=== PATIENT | female | born 1990 ===

== ENCOUNTER 2020-04-13 10:50 | Outpatient (REF) | payer MEDICARE, MEDICAID, SELFPAY ==
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
== END 2020-04-13 10:51 | disposition home or self-care (01) ==
LOC: HO.HMGCX 10:50
PROVIDERS: PCP Internal Medicine; Visit Provider Nurse Practitioner Family
DX: S99.921A Unspecified injury of right foot, initial encounter (principal)
CPT/HCPCS: 73630

== ENCOUNTER 2020-09-10 17:00 | Outpatient (RCR) | payer MEDICARE, MEDICAID, SELFPAY ==
--- NOTE | 2020-08-13 11:38 | MHC.PT.EP ---
[facility] [place] Office [place] Office [place] Office [address] Kati Cisse [address] [phone] F: [phone] F: [phone] F: [phone] F: [phone] Physical Therapy Plan of Care Date of Evaluation: 08/11/20 Date of Surgery: Diagnosis: Dorsalgia and cervicalgia Assessment: Pt is a 29 y/o female referred to skilled PT for cervicalgia and dorsalgia. 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 About 3 weeks ago, this new onset of L sided neck pain occurred as well as exacerbation of upper/mid back pain s/p slip on icy stairs and near fall event. The Pt presents today w/ pain ranging from 5-10/10, decreased cervical AROM, impaired posture/postural awareness, tenderness to palpation, decreased strength, increased tissue tension, impaired muscle length, and decreased thoracic spinal mobility. Related functional limitations include: difficulty driving, sleeping, picking up her DTR, and performing all ADLs w/o pain. She will benefit from skilled PT services 2x/week for 4 weeks in order to reduce impairments and improve limitations. Frequency and Duration: The patient will be seen 2x/week for 4 weeks Short Term Goals: -In 2 weeks, Pt to report less than 5/10 pain w/ AROM of the cervical spine. -In 3 weeks, Pt to self report absence of stiffness @ end range of left shoulder AROM. 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 -In 4 weeks, Pt to self report increased ability to sleep comfortably @ night. -In 4 weeks, Pt to report at least a 50% improvement in symptoms since onset of PT intervention. Treatment Plan: Modalities to reduce pain, spasms and effusion. Manual therapy to restore motion and function. Therapeutic exercise to improve strength and flexibility. Neuromuscular re-education for posture and balance. Therapeutic activities to return to functional activities of daily living. Electronically signed by: Merlyn Smallwood PT, DPT Please sign and return to therapist. Thank you for your referral.
--- NOTE | 2020-09-18 14:56 | MHC.PT.EP ---
[facility] [place] Office [place] Office [place] Office [address] aKti Cisse [address] [phone] F: [phone] F: [phone] F: [phone] F: [phone] Physical Therapy Plan of Care Date of Evaluation: 09/10/20 Date of Surgery: Diagnosis: Dorsalgia and cervicalgia Assessment: Pt is a 29 y/o female referred to skilled PT for cervicalgia and dorsalgia. 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 About 3 weeks ago, this new onset of L sided neck pain occurred as well as exacerbation of upper/mid back pain s/p slip on icy stairs and near fall event. The Pt presents today w/ pain ranging from 5-10/10, decreased cervical AROM, impaired posture/postural awareness, tenderness to palpation, decreased strength, increased tissue tension, impaired muscle length, and decreased thoracic spinal mobility. Related functional limitations include: difficulty driving, sleeping, picking up her DTR, and performing all ADLs w/o pain. She will benefit from skilled PT services 2x/week for 4 weeks in order to reduce impairments and improve limitations. 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 Manual therapy to restore motion and function. Therapeutic exercise to improve strength and flexibility. Neuromuscular re-education for posture and balance. Therapeutic activities to return to functional activities of daily living. Electronically signed by: Merlyn Smallwood PT, DPT Please sign and return to therapist. Thank you for your referral.
== END 2020-09-18 15:04 | disposition other institution (70) ==
LOC: HO.PT 17:00
PROVIDERS: PCP Internal Medicine; Visit Provider Internal Medicine
DX: M54.2 Cervicalgia (principal); M54.9 Dorsalgia, unspecified
CPT/HCPCS: 97110; 97140; 97161; 97530

== ENCOUNTER → 2020-12-23 09:35 | Outpatient (REF) | payer MEDICARE, MEDICAID, SELFPAY ==
--- NOTE | 2020-12-23 09:39 | CA_ITS ---
Transthoracic Echocardiogram Amended Patient (Last, First, Middle): Tiffany Paige M Gender: Female Date of : 1990 Age: 30 Procedure Date: 12/23/2020 Procedure Type: Transthoracic Echocardiogram Location: OP Height: 149.86 cm Weight: 61.24 kg BSA: 1.56 m2 Heart Rate: bpm BP: 100 / 48 mmHg Nurse Aide Evaluator: Deshawn MD: Mar Casey MD Private Banker: Tu Milligan MD Symptoms: R01.1 - Cardiac murmur, unspecified Study Quality: Fair ECG Rhythm: Sinus Conclusions: - 1. Normal LV systolic and diastolic function next 2. Moderately increased RV size with akinetic apex 3. Possibly severe pulmonary regurgitation and mild pulmonic stenosis 4. Normal RV systolic pressure 5. No gross pericardial effusion Findings Left Ventricle Normal left ventricular size, thickness, and systolic function. The visually estimated ejection fraction is between 60-65%. Diastolic function is normal for age. Prominent false tendon noted in the LV Right Ventricle Moderately increased right ventricular cavity size. There is mildly decreased right ventricular systolic function. The right ventricular free wall is normal, the lateral wall is normal, and the apex is akinetic. Atria The left atrium is normal in size. The right atrium is mildly dilated. Aortic Valve Normal aortic valve structure and function. There is no aortic valve stenosis. There is trace (trivial) aortic valve regurgitation. Mitral Valve Normal mitral valve structure and function. There is trace mitral valve regurgitation. There is no mitral valve stenosis. Pulmonic Valve The pulmonic valve was not well visualized. There is severe pulmonic valve regurgitation. There is mild stenosis. Tricuspid Valve Likely normal tricuspid valve structure and function. There is trace tricuspid valve regurgitation. The right ventricular systolic pressure is normal. The right ventricular systolic pressure is 29 mmHg. There is no evidence of pulmonary hypertension. Great Vessels All visible segments of the aorta are normal in size. The pulmonary artery was not well visualized. Venous The inferior vena cava is normal in size and collapses greater than 50% with inspiration. Pericardium/Pleural There is no evidence of pericardial effusion. Measurements 2D Linear Measurements RVIDd: 3.44 RVIDd Index: 2.21 IVSd: 0.77 0.6-0.9/0.6-1.0 cm LVIDd: 3.59 3.9-5.3/4.2-5.9 cm LVIDd Index: 2.30 2.4-3.2/2.2-3.1 cm/m2 LVIDs: 2.44 2.0-3.6 cm LVPWd: 1.12 0.7-1.1 cm Ao Root: 3.00 2.1-3.5 cm LA Diam: 3.10 2.7-3.8/3.0-4.0 cm LAIDs Index: 1.99 1.5-2.3 cm/m2 LV Mass: 122.75 67-162/88-224 g LV Mass Index: 78.69 43-95/49-115 g/m2 LVOT Diam: 2.10 3.0+(-)1.3 cm 2D Volumes LA Vol: 12.40 2D Systolic Function EF 4C: 70.30 >55% EF 2C: 49.10 >55% EF BiP: 59.70 >55% Mitral Valve E'Lateral: 16.90 E'Medial: 10.30 Aortic Valve AoV Pk Aubrey: 1.56 AoV Mn Aubrey: 1.12 AoV VTI: 0.32 AoV Pk Grad: 10.00 Aov Mn Grad: 6.00 WILLEM Cont.VTI: 2.22 LVOT LVOT Pk Aubrey: 1.11 LVOT Mn Aubrey: 0.70 LVOT VTI: 0.20 LVOT Pk Grad: 5.00 LVOT Mn Grad: 2.00 LVOT Diam: 2.10 LVOT Area: 3.46 Diastolic Function E'Medial: 10.30 E' Laterial: 16.90 Tricuspid Valve TR Pk Aubrey: 2.57 TR Pk Grad: 26.00 RA Press: 3.00 RVSP: 29.00 Great Vessels Aorta Ao Root-2D: 3.00 2.0-3.7 cm Ao Asc: 3.10 2.1-3.4 cm Ao Arch: 2.30 Updated in Other Vendor System with Status of Final Tu Milligan MD electronically signed on 12/23/2020 4:51:58 PM with status of Final
== END ==
LOC: HO.CARD 09:35
PROVIDERS: Visit Provider Internal Medicine
DX: R01.1 Cardiac murmur, unspecified (principal)
CPT/HCPCS: 93306

== ENCOUNTER 2021-03-19 15:31 | Outpatient (REF) | payer MEDICARE, MEDICAID, SELFPAY ==
--- NOTE | ~2021-03-19 | US_ITS ---
EXAMINATION: US ABDOMEN LIMITED CLINICAL INFORMATION: Localized swelling, mass and lump, unspecified. COMPARISON: Ultrasound abdomen complete 04/08/2016. TECHNIQUE: Real-time imaging of the left flank. FINDINGS: There is a oval-shaped soft tissue area isoechoic to the muscle that measures 3.5 x 1.5 x 1.1 cm in between the ribs. This demonstrates some vascularity. This is not seen in between other ribs and is questionable for a mass. US/US abdomen limited IMPRESSION: Question isoechoic soft tissue mass between the ribs in the area of palpable abnormality. Follow-up chest MRI recommended for confirmation and further characterization.
== END 2021-03-19 15:32 | disposition home or self-care (01) ==
LOC: HO.HMGCX 15:31
PROVIDERS: PCP Internal Medicine; Visit Provider Physician Assistant
DX: R22.9 Localized swelling, mass and lump, unspecified (principal)
CPT/HCPCS: 76705

== ENCOUNTER 2021-03-30 11:23 | Outpatient (REF) | payer MEDICARE, MEDICAID, SELFPAY ==
--- NOTE | ~2021-03-30 | MR_ITS ---
EXAMINATION: MR ANGIOGRAPHY CHEST WITHOUT CONTRAST CLINICAL INFORMATION: Isoechoic soft tissue mass between the lower ribs in the area of palpable abnormality left side. COMPARISON: None TECHNIQUE: Routine axial T2 SSFSE, fat-sat T1 and T2, LAVA and dual-echo FSPGR and coronal T1 SPGR and T2 FSE sequences of chest wall with attention left lower chest was performed. A marker was placed where patient clinically feels a palpable lesion. No contrast was visualized as no lesion was visualized in the left lower rib where patient points to palpable lesion. FINDINGS: On T1 and T2 sequences with and without fat suppression technique reveals no lesion, fluid collection or mass visualized in the subcutaneous fat or within the intercostal space where a marker has been placed along the left lower ribs. The soft tissues are normal. MR/MR chest wo con IMPRESSION: No abnormal mass, fluid collection or mass effect seen in left lower ribs or intercostal space where markers are placed. Nothing to correspond with the previous ultrasound findings.
== END 2021-03-30 11:24 | disposition home or self-care (01) ==
LOC: HO.MRI 11:23
PROVIDERS: Visit Provider Physician Assistant
DX: R19.00 Intra-abdominal and pelvic swelling, mass and lump, unspecified site (principal)
CPT/HCPCS: 71550

== ENCOUNTER 2021-09-10 09:12 | Emergency (ER) | payer OTHER, MEDICARE, MEDICAID, SELFPAY ==
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
[2021-09-10 09:24] VITALS: BP 117/76; PULSE 82; RESP 16; TEMP 36.6; O2SAT 97; BMI 26.2
[2021-09-10 09:36] VITALS: BP 148/90; PULSE 106; O2SAT 99
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
[2021-09-10] MEDS: Acetaminophen 325 MG TABLET 975 MG PO (10:05)
[2021-09-10 10:15] VITALS: BP 94/58; PULSE 83; RESP 18; O2SAT 96
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
== END 2021-09-10 11:24 | disposition home or self-care (01) ==
PROVIDERS: Emergency Provider Emergency Medicine; PCP Internal Medicine
DX: S29.011A Strain of muscle and tendon of front wall of thorax, initial encounter (principal); V43.02XA Car driver injured in collision with other type car in nontraffic accident, initial encounter; M25.511 Pain in right shoulder; F41.9 Anxiety disorder, unspecified; Y93.89 Activity, other specified; Y92.414 Local residential or business street as the place of occurrence of the external cause; Y99.9 Unspecified external cause status; Z79.899 Other long term (current) drug therapy
CPT/HCPCS: 71046; 93005; 99283; 99284

== ENCOUNTER 2022-01-27 11:06 | Outpatient (REF) | payer MEDICARE, MEDICAID, SELFPAY ==
--- NOTE | ~2022-01-27 | XR_ITS ---
EXAMINATION: XR CHEST 2 VIEWS CLINICAL INFORMATION: Heart failure. COMPARISON: Chest radiographs dated 09/10/2021. TECHNIQUE: Frontal and lateral views of the chest were obtained. FINDINGS: The heart, great vessels and mediastinum are stable. There has been a prior median sternotomy. There is mild pulmonary vascular congestion, without overt pulmonary edema. Lung volumes are low, with crowding of bronchovascular and pulmonary parenchymal markings. The lungs show no focal infiltrate, effusion or pneumothorax. There is no acute osseous abnormality. There is a mild thoracic dextroscoliosis. XR/XR chest 2V IMPRESSION: 1. There has been a prior median sternotomy. There is mild pulmonary vascular congestion, without overt pulmonary edema. 2. No focal infiltrate is seen. Lung volumes are diminished.
[2022-01-27 11:45] LABS: Hematocrit 33.5 % (37.0-47.0); Hemoglobin 11.6 g/dl (12.0-16.0); Mean Corpuscular HGB Conc 34.6 g/dl (31.0-35.0); Mean Corpuscular Hemoglobin 38.4 pg (27.0-33.0); Mean Platelet Volume 9.7 fL (9.4-12.3); Platelet Count 234 X10*3/uL (160-400); Red Blood Count 3.02 X10*6/uL (4.20-5.50); Red Cell Distribution Width 11.9 % (11.0-16.0); White Blood Count 4.5 X10*3/uL (4.8-10.8)
[2022-01-27 11:56] LABS: Mean Corpuscular Volume 110.9 fL (80.0-98.0)
[2022-01-27 12:14] LABS: Alanine Aminotransferase 30 U/L (0-31); Albumin Level 3.8 g/dL (3.5-5.0); Alkaline Phosphatase 42 U/L (39-117); Anion Gap 12 (12-20); Aspartate Amino Transferase 28 U/L (5-31); Bilirubin Total < 0.2 mg/dL (0.0-1.0); Blood Urea Nitrogen 11 mg/dL (9-16); Calcium 7.7 mg/dL (8.4-10.2); Carbon Dioxide 24 mmol/L (22-29); Chloride 108 mmol/L (96-108); Cholesterol 188 mg/dL; Estimated Glomerular Filt Rate > 60; Glucose Fasting 95 mg/dL (60-99); HDL Cholesterol 50 mg/dL; LDL Cholesterol Calculated 115 mg/dl; Potassium 4.6 mmol/L (3.3-5.1); Sodium 139 mmol/L (135-145); Total Protein 6.5 g/dL (6.5-8.0); Triglycerides 118 mg/dL
[2022-01-31 20:12] LABS: NT-proBNP 441 pg/mL
== END 2022-01-27 11:07 | disposition home or self-care (01) ==
LOC: HO.XRAY 11:06
PROVIDERS: PCP Internal Medicine; Visit Provider Physician Assistant
DX: I50.9 Heart failure, unspecified (principal)
CPT/HCPCS: 36415; 71046; 80053; 80061; 83880; 85027

== ENCOUNTER 2022-03-14 08:16 | Outpatient (REF) | payer MEDICARE, MEDICAID, SELFPAY ==
[2022-03-14 09:43] LABS: Magnesium 1.9 mg/dL (1.6-2.6)
[2022-03-14 09:49] LABS: HCG Quantitative < 2 mIU/mL
[2022-03-14 10:06] LABS: Vitamin D 25-OH Total 13.4 ng/mL (>30)
[2022-03-14 10:47] LABS: Folate 13.5 ng/mL (> or = 4.0); Vitamin B12 231 pg/mL (200-900)
[2022-03-16 12:37] LABS: Calcium (PTHI) 9.2 mg/dL (8.6-10.2); PTHI 79 pg/mL (16-77)
== END 2022-03-14 08:17 | disposition home or self-care (01) ==
LOC: HO.LAB 08:16
PROVIDERS: Absent Provider Internal Medicine; PCP Internal Medicine; Visit Provider Physician Assistant
DX: N92.6 Irregular menstruation, unspecified (principal); E83.51 Hypocalcemia; D53.9 Nutritional anemia, unspecified; E53.8 Deficiency of other specified B group vitamins
CPT/HCPCS: 36415; 82306; 82607; 82746; 83735; 83970; 84702

== ENCOUNTER 2022-03-15 07:57 | Outpatient (REF) | payer MEDICARE, MEDICAID, SELFPAY ==
[2022-03-15 09:06] LABS: HCG Quantitative < 2 mIU/mL
== END 2022-03-15 07:58 | disposition home or self-care (01) ==
LOC: HO.LAB 07:57
PROVIDERS: Physician Assistant; PCP Internal Medicine; Visit Provider Nurse Practitioner Family
DX: N91.2 Amenorrhea, unspecified (principal)
CPT/HCPCS: 36415; 84702

== ENCOUNTER 2022-03-24 10:03 | Emergency (ER) | payer MEDICARE, MEDICAID, SELFPAY ==
[2022-03-24 10:13] VITALS: BP 116/52; BP 118/60; PULSE 79; PULSE 80; RESP 18; TEMP 37; O2SAT 98; BMI 30.2
[2022-03-24 10:58] LABS: Appearance Urine Clear; Color Urine Yellow; Glucose Urine UA Negative (Negative); Leukocyte Esterase Urine Trace (Negative); Nitrite Urine Negative (Negative); PH 5.5 (5.0-9.0); UMIC TRIGGER UACC YES; Urine Blood Large (3+) (Negative); Urine Ketones Trace mg/dL (Negative); Urine Protein Trace mg/dL (Neg-Trace)
[2022-03-24 10:59] LABS: UPreg QC Valid YES; Urine Pregnancy NEGATIVE (NEGATIVE)
[2022-03-24 11:08] LABS: Bacteria Urine None Seen (None Seen); Hyaline Casts Urine 0-2 /LPF (0-2); RBC Urine >20 /HPF (0-2); Squamous Epithelial Cell Urine 0-2 /HPF (0-2); WBC Urine 0-5 /HPF (0-5)
[2022-03-24 11:09] LABS: Specific Gravity - Urine >= 1.030 (1.005-1.025)
[2022-03-24 11:10] LABS: Amphetamine Screen Urine Not Detected (Not Detect); Barbiturates, Urine Not Detected (Not Detect); Benzodiazepines Screen Urine Not Detected (Not Detect); Cannabinoid Screen Urine POSITIVE (Not Detect); Cocaine Screen Urine Not Detected (Not Detect); Fentanyl, urine Not Detected (Not Detect); Opiate Screen Urine Not Detected (Not Detect); Phencyclidine Screen Urine Not Detected (Not Detect)
[2022-03-24 11:11] LABS: COVID-19 Test Negative (Negative); IDNOW Serial# 16C4AD1C
--- OUTSIDE RECORDS SUMMARY | 2022-03-24 11:22 | XMS_ITS | Continuity of Care Document ---
:1990 Author Organization [facility] ic Address [address] [place] [id number]- Care Team Providers Name Role Phone Scotty Casey MD, Poonam Gates Primary Care Physician [place] [facility] [place] 11/14/19 - 12/14/[address] [address]- [facility] Attending Physician: Stacy Dodge Admitting Physician: Stacy Dodge Referring Physician: AdmtrStacy Allergies, Adverse Reactions, Alerts Substance Reaction Severity Status Bananas Stomachache 26-MAR-2016 06:16:00<$> Active Immunizations Given and Recorded Vaccine Date Status Refusal Reason pneumococcal 23-valent vaccine 02/07/18 Given Measles/Mumps/Rubella Virus Vaccine1 10/03/15 Given tetanus/diphtheria/pertussis, acel(Tdap) 07/15/15 Given 1Result Comment: Administered by SN MASSIMO Mullen. Medications MiraLax oral powder for reconstitution = 17 Gm, By Mouth, Daily, # 527 Gm, 11 Refills, Maintenance, 06/15/17 9:27:33, 17 Gm By Mouth Daily Start Date: 06/15/17 Status: Orderedomeprazole 20 mg oral enteric coated capsule 1 capsule = 20 mg, By Mouth, Daily, # 30 capsule, 11 Refills, Maintenance, 09/19/17 11:00:35 EDT, ECCapsule Start Date: 09/19/17 Stop Date: 09/14/18 Status: Ordered Problem List Condition Effective Dates Status Health Status Informant [D]Headache(Confirmed) Active Complete repair of tetralogy of Fallot 04/1993 Active with transannular patch(Confirmed)(Stable) Epigastric abdominal pain(Confirmed) Active Encounter for diagnostic colonoscopy Active due to change in bowel habits(Confirmed) H/O heartburn(Confirmed) Active BRBPR (bright red blood per Active rectum)(Confirmed) Blood in stool, adán(Confirmed) Active Macrocytosis, red cells(Confirmed) Active Encounter for Depo-Provera Active contraception(Confirmed) Pulmonary valve Active regurgitation(Confirmed)(Stable) Social History Social History Type Response Smoking Status Never smoker; Tobacco user i n household: No entered on: 11/25/14 Sex
--- OUTSIDE RECORDS SUMMARY | 2022-03-24 11:22 | XMS_ITS | Continuity of Care Document ---
:1990 Author Organization [facility] Address [address] [place] [address]- Care Team Providers Name Role Phone Scotty aCsey MD, Mar Gates Primary Care Physician Encounter [facility] Date(s): 06/09/21 - 07/09/21 [facility] [address] [place] [address]- Allergies, Adverse Reactions, Alerts Substance Reaction Severity Status Bananas Stomachache 26-MAR-2016 06:16:00<$> Active Immunizations Given and Recorded Vaccine Date Status Refusal Reason influenza virus vaccine, inactivated1 05/13/21 Given pneumococcal 23-valent vaccine 02/07/18 Given Measles/Mumps/Rubella Virus Vaccine2 10/03/15 Given tetanus/diphtheria/pertussis, acel(Tdap) 07/15/15 Given 1Early/Late Reason: Early/Late Reason: Other : patient [id number] Comment: Administered by SN MASSIMO Mullen. Medications FLUoxetine 20 mg oral capsule 20 mg, 1, capsule, By Mouth, Daily, # 30 capsule, Refills 0, Maintenance, 05/11/21 15:48:00 EST, Partial fill upon patient request if the prescription is for a schedule II opioid drug. Start Date: 05/11/21 Status: OrderedLasix 20 mg oral tablet 20 mg, 1, tablet, By Mouth, Daily, If weight increases 3 lbs in 24 hours, 5 lbs in 1 week, or shortness of breath returns, take 1 tablet twice daily for 3 adys and call your heart doctor., # 30 tablet,Refills 5, Tot. Refills 5, Maintenance, 06/09/21... Start Date: 06/09/21 Status: Orderedomeprazole 20 mg oral enteric coated capsule 1 capsule = 20 mg, By Mouth, Daily, # 30 capsule, 11 Refills, Maintenance, 09/19/17 11:00:35 EDT, ECCapsule Start Date: 09/19/17 Stop Date: 09/14/18 Status: OrderedtraZODone 50 mg oral tablet 50 mg, 1, tablet, By Mouth, Daily, # 270 tablet, Refills 0, Maintenance, 05/11/21 15:48:00 EST, Partial fill upon patient request if the prescription is for a schedule II opioid drug. Start Date: 05/11/21 Status: Ordered Problem List Condition Effective Dates Status Health Status Informant [D]Headache(Confirmed) Active Chest pain(Confirmed) Active Complete repair of tetralogy of Fallot [...]
--- OUTSIDE RECORDS SUMMARY | 2022-03-24 11:22 | XMS_ITS | Continuity of Care Document ---
:1990 Author Organization [facility] Address [address] [place] [address]- Care Team Providers Name Role Phone Scotty Casey MD, Mar Gates Primary Care Physician Encounter [facility] [place] Date(s): 12/24/20 - 01/23/[address] [facility] [address] [place] [address]- Allergies, Adverse Reactions, Alerts Substance Reaction Severity [...]
--- OUTSIDE RECORDS SUMMARY | 2022-03-24 11:22 | XMS_ITS | Continuity of Care Document ---
:1990 Author Organization [facility] Address [address] [place] [address]- Care Team Providers Name Role Phone Scotty Casey MD, Mar Gates Primary Care Physician [place] [facility] [place]21 - 02/11/21 [facility] [address] [place] [address]- Attending Physician: Stacy Dodge Admitting Physician: Stacy [...]
--- OUTSIDE RECORDS SUMMARY | 2022-03-24 11:22 | XMS_ITS | Continuity of Care Document ---
:1990 Author Organization [facility] Address [address] [place] [address]- Care Team Providers Name Role Phone Scotty Casey MD, Mar Gates Primary Care Physician Encounter [facility] [place] Date(s): 05/17/21 - 06/16/21 [facility] [address] [place] [address]- [place] Allergies, Adverse Reactions, Alerts Substance Reaction Severity Status Bananas Stomachache 26-MAR-2016 06:16:00<$> Active Immunizations Given and Recorded Vaccine Date Status Refusal Reason influenza virus vaccine, inactivated1 05/13/21 Given pneumococcal 23-valent vaccine 02/07/18 Given Measles/Mumps/Rubella Virus Vaccine2 10/03/15 Given tetanus/diphtheria/pertussis, acel(Tdap) 07/15/15 Given 1Early/Late Reason: Early/Late Reason: Other : patient [id number] Comment: Administered by SN MASSIMO Mullen. Medications [...]
--- OUTSIDE RECORDS SUMMARY | 2022-03-24 11:22 | XMS_ITS | Continuity of Care Document ---
:1990 Author Organization [facility] ic Address [address] [place] [address]- Care Team Providers Name Role Phone Scotty Casey MD, Poonam Gates Primary Care Physician [id number] Date(s): 08/28/19 - 12/14/[address] [address]- [facility] Attending Physician: Not on Staff, Attending MD Referring Physician: Scotty Casey MD , Poonam Gates Allergies, Adverse Reactions, Alerts Substance Reaction Severity [...]
--- OUTSIDE RECORDS SUMMARY | 2022-03-24 11:22 | XMS_ITS | Continuity of Care Document ---
:1990 Author Organization [facility] Address [address] [place] [address]- Care Team Providers Name Role Phone Scotty Casey MD, Mar Gates Primary Care Physician Encounter [facility] [place] Date(s): 05/25/21 - 08/05/21 [facility] [address] [place] [address]- Attending Physician: Aron MUNOZ, Kasandra Leonard Admitting Physician: Aron MUNOZ, Kasandra Leonard Allergies, Adverse Reactions, Alerts Substance Reaction Severity Status Bananas Stomachache 26-MAR-2016 06:16:00<$> Active Immunizations Given and Recorded Vaccine Date Status Refusal Reason influenza virus vaccine, inactivated1 05/13/21 Given pneumococcal 23-valent vaccine 02/07/18 Given Measles/Mumps/Rubella Virus Vaccine2 10/03/15 Given tetanus/diphtheria/pertussis, acel(Tdap) 07/15/15 Given 1Early/Late Reason: Early/Late Reason: Other : patient [id number] Comment: Administered by SN MASSIMO Mullen. Medications [...] Depo-Provera Active contraception(Confirmed) Pulmonary valve Active regurgitation(Confirmed)(Stable) Vital Signs Most recent to oldest [Reference Range]: 1 Height 151 cm (07/05/21 10:36 AM) Social History Social History Type Response Smoking Status Never smoker; Tobacco user i n household: No entered on: 11/25/14 Sex
--- OUTSIDE RECORDS SUMMARY | 2022-03-24 11:22 | XMS_ITS | Continuity of Care Document ---
:1990 Author Organization [facility] Address [address] [place] [address]- Care Team Providers Name Role Phone Scotty Casey MD, Mar Gates Primary Care Physician [place] [facility] [place](s): 12/24/20 - 02/11/21 [facility] [address] [place] [address]- Attending Physician: Delta Borjas MD Referring Physician: Mar Samayoa MD Allergies, Adverse Reactions, Alerts Substance Reaction Severity [...]
--- OUTSIDE RECORDS SUMMARY | 2022-03-24 11:22 | XMS_ITS | Continuity of Care Document ---
:1990 Author Organization [facility] Address [address] [place] [address]- Care Team Providers Name Role Phone Scotty Casey MD, Mar Gates Primary Care Physician [place] [facility] [place] 05/20/21 - 06/19/21 [facility] [address] [place] [address]- Allergies, Adverse Reactions, Alerts Substance Reaction Severity Status Bananas Stomachache 26-MAR-2016 06:16:00<$> Active Immunizations Given and Recorded Vaccine Date Status Refusal Reason influenza virus vaccine, inactivated1 05/13/21 Given pneumococcal 23-valent vaccine 02/07/18 Given Measles/Mumps/Rubella Virus Vaccine2 10/03/15 Given tetanus/diphtheria/pertussis, acel(Tdap) 07/15/15 Given 1Early/Late Reason: Early/Late Reason: Other : patient [id number] Comment: Administered by SN MASSIMO Mullen. Medications [...]
--- OUTSIDE RECORDS SUMMARY | 2022-03-24 11:22 | XMS_ITS | Continuity of Care Document ---
:1990 Author Organization [facility] Address [address] [place] [address]- Care Team Providers Name Role Phone Scotty Casey MD, Mar Gates Primary Care Physician Encounter [facility] [place] [facility] [id number] Date(s): 08/17/21 - 09/16/21 [facility] [address] [place] [address]- Attending Physician: Stacy Dodge Admitting Physician: AdmStacy dash Referring Physician: AdmtrStacy Allergies, Adverse Reactions, Alerts Substance Reaction Severity Status Bananas Stomachache 26-MAR-2016 06:16:00<$> Active Immunizations Given and Recorded Vaccine Date Status Refusal Reason influenza virus vaccine, inactivated1 05/13/21 Given pneumococcal 23-valent vaccine 02/07/18 Given Measles/Mumps/Rubella Virus Vaccine2 10/03/15 Given tetanus/diphtheria/pertussis, acel(Tdap) 07/15/15 Given 1Early/Late Reason: Early/Late Reason: Other : patient [id number] Comment: Administered by SN MASSIMO Mullen. Medications [...] 5, Maintenance, 06/09/21... Start Date: 06/09/21 Status: OrderedLORazepam 0.5 mg oral tablet 0.5 tablet = 0.25 mg, By Mouth, 2 times a day, 0 Refills, Maintenance, 08/17/21 8:44:00 EST, Tablet,Partial fill upon patient request if the prescription is for a schedule II opioid drug. Start Date: 08/17/21 Status: Orderedomeprazole 20 mg oral enteric coated [...]
--- OUTSIDE RECORDS SUMMARY | 2022-03-24 11:22 | XMS_ITS | Continuity of Care Document ---
:1990 Author Organization [facility] Address [address] [place] [address]- Care Team Providers Name Role Phone Scotty Casey MD, Mar Gates Primary Care Physician Encounter [facility] Date(s): 07/06/21 - 08/05/21 [facility] [address] [place] [address]- Allergies, Adverse Reactions, Alerts Substance Reaction Severity Status Bananas Stomachache 26-MAR-2016 06:16:00<$> Active Immunizations Given and Recorded Vaccine Date Status Refusal Reason influenza virus vaccine, inactivated1 05/13/21 Given pneumococcal 23-valent vaccine 02/07/18 Given Measles/Mumps/Rubella Virus Vaccine2 10/03/15 Given tetanus/diphtheria/pertussis, acel(Tdap) 07/15/15 Given 1Early/Late Reason: Early/Late Reason: Other : patient [id number] Comment: Administered by SN MASSIMO Mullen. Medications [...]
--- OUTSIDE RECORDS SUMMARY | 2022-03-24 11:22 | XMS_ITS | Continuity of Care Document ---
:1990 Author Organization [facility] Address [address] [place] [address]- Care Team Providers Name Role Phone Scotty Casey MD, Mar Gates Primary Care Physician Encounter [facility] [place] Date(s): 12/24/20 - 01/23/21 [facility] [address] [place] [address]- Allergies, Adverse Reactions, Alerts Substance Reaction Severity [...]
--- OUTSIDE RECORDS SUMMARY | 2022-03-24 11:22 | XMS_ITS | Continuity of Care Document ---
:1990 Author Organization [facility] Address [address] [place] [address]- Care Team Providers Name Role Phone Scotty Casey MD, Mar Gates Primary Care Physician [place] [facility] [place] 01[place]21 - 02/25/21 [facility] [address] [place] [address]- Attending Physician: Stacy Dodge Admitting Physician: Stacy [...]
--- OUTSIDE RECORDS SUMMARY | 2022-03-24 11:22 | XMS_ITS | Continuity of Care Document ---
:1990 Author Organization [facility] Address [address] [place] [address]- Care Team Providers Name Role Phone Scotty Casey MD, Mar Gates Primary Care Physician [place] [facility] [place]): [place] - 05/14/[address] [address]- Encounter Diagnosis Shortness of breath (Final) - 05/11/21 Shortness of breath (Final) - 05/11/21 Discharge Disposition: A-D/C Home Attending Physician: Dilshad Barlow DO Admitting Physician: Monika Sneed MD Referring Physician: Not on Staff, Referring MD Allergies, Adverse Reactions, Alerts Substance Reaction Severity Status Bananamega Stomachache 26-MAR-2016 06:16:00<$> Active Immunizations Given and Recorded Vaccine Date Status Refusal Reason influenza virus vaccine, inactivated1 05/13/21 Given pneumococcal 23-valent vaccine 02/07/18 Given Measles/Mumps/Rubella Virus Vaccine2 10/03/15 Given tetanus/diphtheria/pertussis, acel(Tdap) 07/15/15 Given 1Early/Late Reason: Early/Late Reason: Other : patient [id number] Comment: Administered by SN MASSIMO Mullen. Medications [...] call your heart doctor., # 30 tablet,Refills 0, Tot. Refills 0, Maintenance, 05/14/21... Start Date: 05/14/21 Status: Orderedomeprazole 20 mg oral enteric coated [...] Depo-Provera Active contraception(Confirmed) Pulmonary valve Active regurgitation(Confirmed)(Stable) Results Radiology Reports Exam Date Time Procedure Performing Provider Status 05/10/21 6:16 PM Chest 2 Views Frontal and Lat Velvet Cerrato ; Mike (Verified) Notes:(Chest 2 Views Frontal and Lat) Reason For Exam: Chest Pain;Other:RESULT: Chest 2 Views Frontal and Lat Chest 2 Views Frontal and Lat Hx of Present Illness: Shortness of breath. History of tetralogy of flow. COMPARISON: 02/05/2018 FINDINGS: LINES AND TUBES: None. LUNGS AND PLEURA: Increased pulmonary vascularity somewhat asymmetric on the right compared to the left similar to slightly increased from prior. No pleural effusion. No pneumothorax. HEART, MEDIASTINUM AND SHASHA: Heart is normal in size. Normal upper mediastinal and hilar contour. BONES AND SOFT TISSUES: No acute abnormality. Status post remote median sternotomy. IMPRESSION: Increased pulmonary vascularity without overt pulmonary edema. WSN: [id number] Ordering Physician: Dennis Zhou Dictated By: Ozzie Mack MD Dictated Date/Time: 05/10/21 6:28 pm Reviewed By: Ozzie Mack MD Signed By: Ozzie Mack MD Signed Date/Time: 05/10/21 6:28 pm Transcribed By: YENNY Transcribed Date/Time: 05/10/21 6:26 pm Vital Signs Most recent to oldest 1 2 3 [Reference Range]: Height 151 cm 151 cm 151 cm (05/14/21 7:34 AM) (05/14/21 1:50 AM) (05/13/21 8:4 9 PM) Weight 57.3 kg 60.3 kg (05/13/21 6:45 AM) (05/12/21 4:40 PM) Oxygen Saturation [94-100 %] 98 % 97 % 95 % (05/14/21 7:34 AM) (05/14/21 1:50 AM) (05/13/21 8:4 9 PM) Pulse Rate [55-90 bpm] 75 bpm 72 bpm 90 bpm (05/14/21 7:34 AM) (05/14/21 1:50 AM) (05/13/21 8:4 9 PM) Body Mass Index [18.5-24.99] 26.45 *H* (05/12/21 4:40 PM) Blood Pressure [90-138/55-84 mm 93/61 mm Hg 90/52 mm Hg 113/78 mm Hg Hg] (05/14/21 7:34 AM) (05/14/21 1:50 AM) (05/13/21 8:4 9 PM) Respiratory Rate [16-30 br/min] 18 br/min 20 br/min 20 br/min (05/14/21 7:34 AM) (05/14/21 1:50 AM) (05/13/21 8:4 9 PM) Temperature [96.8-100.4 DegF] 97.6 DegF 97 DegF 98 DegF (05/14/21 7:34 AM) (05/14/21 1:50 AM) (05/13/21 8:4 9 PM) Mode of Delivery (Oxygen) Room air Room air Room a ir (05/14/21 7:34 AM) (05/14/21 1:50 AM) (05/13/21 8:4 9 PM) Blood pressure sites Arm, right Arm, right Arm, right (05/14/21 7:34 AM) (05/14/21 1:50 AM) (05/13/21 8:4 9 PM) Temperature Route Temporal Temporal Temporal (05/14/21 7:34 AM) (05/14/21 1:50 AM) (05/13/21 8:4 9 PM) Dry Weight 63 kg (05/12/21 4:40 PM) Weight Obtained Via Bed scale (05/13/21 6:45 AM) Social History Social History Type Response Smoking Status Never smoker; Tobacco user i n household: No entered on: 11/25/14 Sex
--- OUTSIDE RECORDS SUMMARY | 2022-03-24 11:22 | XMS_ITS | Continuity of Care Document ---
:1990 Author Organization [facility] ic Address [address] [place] [address]- Care Team Providers Name Role Phone Scotty Casey MD, Poonam Gates Primary Care Physician Encounter [facility] [place] Date(s): 04/22/19 - 08/09/[address] [address]- [facility] Attending Physician: Not on Staff, Attending MD Allergies, Adverse Reactions, Alerts Substance Reaction [...]
--- OUTSIDE RECORDS SUMMARY | 2022-03-24 11:22 | XMS_ITS | Continuity of Care Document ---
:1990 Author Organization [facility] ic Address [address] [place] [address]- Care Team Providers Name Role Phone Scotty Casey MD, Poonam Gates Primary Care Physician Encounter [facility] [place] Date(s): 07/10/19 - 07/20/[address] [address]- [facility] Attending Physician: Stacy Dodge Admitting Physician: Stacy [...]
--- NOTE | 2022-03-24 11:25 | PC.NURSE ---
pt a/o x 4 no sob/camilo noted skin pink warm speaks in full sentences. pt denies any si/hi.
--- NOTE | 2022-03-24 11:56 | PC.NURSE ---
pt seen by [facility] (annabel) pt aware of plan of care.
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
[2022-03-24 12:48] LABS: Hemoglobin 11.9 g/dl (12.0-16.0); Mean Corpuscular HGB Conc 36.1 g/dl (31.0-35.0); Mean Corpuscular Volume 105.4 fL (80.0-98.0); Mean Platelet Volume 9.3 fL (9.4-12.3); Platelet Count 255 X10*3/uL (160-400); Red Blood Count 3.13 X10*6/uL (4.20-5.50); Red Cell Distribution Width 11.9 % (11.0-16.0); White Blood Count 7.1 X10*3/uL (4.8-10.8)
--- NOTE | 2022-03-24 12:48 | PC.NURSE ---
caryn cote aileen
[2022-03-24 12:57] LABS: Anion Gap 12 (12-20); Blood Urea Nitrogen 22 mg/dL (9-16); Carbon Dioxide 25 mmol/L (22-29); Chloride 106 mmol/L (96-108); Creatinine Clr Calc Pharmacy 85.2; Estimated Glomerular Filt Rate > 60; Glucose Random 100 mg/dL (60-115); Sodium 139 mmol/L (135-145)
--- NOTE | 2022-03-24 12:57 | PC.NURSE ---
pt ask this rn to call her boyfriend sosa ([phone]) to product picker the kids from school. this rn relayed the message, pt is aware.
[2022-03-24 13:35] VITALS: BP 127/63; PULSE 82; RESP 12; TEMP 36.7; O2SAT 98
--- NOTE | 2022-03-24 15:37 | PHA.MEDREC ---
Pharmacy Consult ? Medication Reconciliation Pharmacy has completed the medication reconciliation.
[2022-03-24] MEDS: traZODone HCL 50 MG TABLET PO (21:27)
[2022-03-24] MEDS: NaPROXEN 500 MG TABLET PO (21:28)
[2022-03-25 02:22] VITALS: BP 99/49; PULSE 70; RESP 15; TEMP 36.6; O2SAT 96
--- NOTE | 2022-03-25 03:12 | PC.NURSE ---
Patient is in bed appears sleeping, no distress observed/reported, patient engaged well with [facility]N, disposition per N is current provider, discharge paper ready, behavior appropriate, medication compliant, VSS, will continue to monitor.
[2022-03-25] MEDS: Furosemide 20 MG TABLET PO (08:01)
[2022-03-25] MEDS: FLUoxetine HCl 20 MG CAPSULE 40 MG PO (08:02)
[2022-03-25] MEDS: Cholecalciferol (Vitamin D3) 25 MCG TABLET 50 MCG PO (08:02)
[2022-03-25] MEDS: NaPROXEN 500 MG TABLET PO (08:03)
[2022-03-25 08:08] VITALS: BP 105/49; PULSE 76; RESP 16; TEMP 36.7; O2SAT 95
== END 2022-03-25 08:16 | disposition home or self-care (01) ==
PROVIDERS: Nurse Practitioner Family; Emergency Provider Student in an Organized Health Care Education/Training Program; PCP Internal Medicine
DX: R45.851 Suicidal ideations (principal); F41.9 Anxiety disorder, unspecified; F32.A Depression, unspecified; Z20.822 Contact with and (suspected) exposure to COVID-19; F12.90 Cannabis use, unspecified, uncomplicated; Z79.899 Other long term (current) drug therapy
CPT/HCPCS: 80048; 80307; 81001; 81003; 81025; 85027; 87635; 99284

== ENCOUNTER 2022-11-21 12:04 | Outpatient (REF) | payer MEDICARE, MEDICAID, SELFPAY ==
--- NOTE | ~2022-11-21 | XR_ITS ---
EXAMINATION: XR SHOULDER, RIGHT CLINICAL INFORMATION: Enthesopathy. COMPARISON: None available. TECHNIQUE: AP external rotation, Grashey, scapular Y, and axillary views of the right shoulder. FINDINGS: The bones and soft tissues are normal. No fracture. Glenohumeral and acromioclavicular alignment is anatomic with normal joint space. No abnormal soft tissue calcifications. 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 XR/XR shoulder RT min 2V IMPRESSION: Normal right shoulder.
== END 2022-11-21 12:05 | disposition home or self-care (01) ==
LOC: HO.XRAY 12:04
PROVIDERS: PCP Physician Assistant; Visit Provider Physician Assistant
DX: M77.8 Other enthesopathies, not elsewhere classified (principal)
CPT/HCPCS: 73030

== ENCOUNTER 2022-11-30 09:52 | Outpatient (REF) | payer MEDICARE, MEDICAID, SELFPAY ==
--- NOTE | 2022-11-30 09:56 | EMG_ITS ---
Please see scanned EMG / Nerve Conduction Report. MTDD
[2022-11-30 10:48] LABS: Hematocrit 35.2 % (37.0-47.0); Hemoglobin 12.3 g/dl (12.0-16.0); Mean Corpuscular HGB Conc 34.9 g/dl (31.0-35.0); Mean Corpuscular Hemoglobin 38.1 pg (27.0-33.0); Platelet Count 256 X10*3/uL (160-400); Red Blood Count 3.23 X10*6/uL (4.20-5.50); Red Cell Distribution Width 11.9 % (11.0-16.0); White Blood Count 5.4 X10*3/uL (4.8-10.8)
[2022-11-30 12:02] LABS: Alanine Aminotransferase 32 U/L (0-31); Albumin Level 3.9 g/dL (3.5-5.0); Alkaline Phosphatase 53 U/L (39-117); Anion Gap 11 (12-20); Aspartate Amino Transferase 19 U/L (5-31); Bilirubin Total 0.5 mg/dL (0.0-1.0); Blood Urea Nitrogen 17 mg/dL (9-16); Carbon Dioxide 27 mmol/L (22-29); Chloride 104 mmol/L (96-108); Cholesterol 180 mg/dL; Estimated Glomerular Filt Rate > 60; Glucose Fasting 90 mg/dL (60-99); HDL Cholesterol 45 mg/dL; Iron 176 mcg/dL (30-160); LDL Cholesterol Calculated 102 mg/dl; Percent Iron Saturation 51 % (15-50); Potassium 4.2 mmol/L (3.3-5.1); Sodium 138 mmol/L (135-145); Total Iron Binding Capacity 345 mcg/dL (228-428); Total Protein 6.9 g/dL (6.5-8.0); Triglycerides 169 mg/dL; Unsaturated Iron Binding 169 ug/dL
== END 2022-11-30 09:53 | disposition home or self-care (01) ==
LOC: HO.NEURO 09:52
PROVIDERS: PCP Physician Assistant; Visit Provider Physician Assistant
DX: R20.2 Paresthesia of skin (principal); I50.9 Heart failure, unspecified; D50.9 Iron deficiency anemia, unspecified; D53.9 Nutritional anemia, unspecified
CPT/HCPCS: 36415; 80053; 80061; 83540; 84443; 85027; 95885; 95910

== ENCOUNTER 2023-01-02 10:58 | Outpatient (REF) | payer MEDICARE, MEDICAID, SELFPAY ==
--- NOTE | ~2023-01-02 | XR_ITS ---
EXAMINATION: XR CERVICAL SPINE CLINICAL INFORMATION: Neck pain COMPARISON: None available. TECHNIQUE: AP, lateral and 2 odontoid views of the cervical spine. FINDINGS: Median sternotomy wires and mediastinal clips in the upper thorax. Reversal of the normal cervical lordosis. Moderate degenerative changes with hypertrophic change and loss of disc space height at C5-C6 and C6-C7. XR/XR cervical spine 3V IMPRESSION: Moderate degenerative changes at C5-C6 and C6-C7
== END 2023-01-02 10:59 | disposition home or self-care (01) ==
LOC: HO.XRAY 10:58
PROVIDERS: PCP Physician Assistant; Visit Provider Physician Assistant
DX: M54.2 Cervicalgia (principal)
CPT/HCPCS: 72040

== ENCOUNTER 2023-01-23 11:00 | Outpatient (RCR) | payer MEDICARE, MEDICAID, SELFPAY ==
--- NOTE | 2022-12-26 12:30 | MHC.PT.EP ---
[facility] [place] [facility] [place] [facility] [place] [facility] [address] [phone] F: [phone] F: [phone] F: [phone] F: [phone] Physical Therapy Plan of Care Date of Evaluation: Date of Surgery: Diagnosis: RIGHT shoulder tendonitis Assessment: Patient is a pleasant 32 y.o. female who is referred to PT by Jacek Champion PA-C, with Dx of RIGHT shoulder tendonitis. PT diagnosis is RIGHT shoulder subacromial impingement syndrome as she is asymptomatic in cervical spine. Questionable [place] R hand, may benefit from OT/CHT. Patient impairments include poor posture, tenderness in UT/LS and in elbow and wrist, pain. radicular UE symptoms, weakness in middle and lower trapezius muscles. Patient current functional limitations are using R arm, writing, lifting overhead, doing her hair, difficulty holding/carrying bags, holding steering wheel to drive. Patient will benefit from skilled PT to address aforementioned impairments and functional limitations to meet established goals. Frequency and Duration: The patient will be seen 2x/ week for 4 weeks Short Term Goals: 2 weeks Patient demonstrates consistency and independence with HEP to self manage symptoms. Patient is able to improve posture and centralize R UE symptoms. [employer] Goals: 4 weeks Patient presents with increased R shoulder AROM flexion 180 degrees without pain to be able to wash/style her hair. Patient presents with increased R middle trap strength 4/5 to improve posture when driving. Treatment Plan: Modalities to reduce pain, spasms and effusion. Manual therapy to restore motion and function. Therapeutic exercise to improve strength and flexibility. Neuromuscular re-education for posture and balance. Therapeutic activities to return to functional activities of daily living. Electronically signed by: Celso David, PT, DPT Please sign and return to therapist. Thank you for your referral.
--- NOTE | 2023-03-21 10:38 | MHC.PT.DC ---
[facility] [place] Office [place] Office [place] Office [address] Kati Cisse [address] [phone] F: [phone] F: [phone] F: [phone] F: [phone] Physical Therapy Discharge Report Diagnosis: RIGHT shoulder tendonitis Date of Surgery: Date of Evaluation: 12/26/22 Date of Discharge: 03/21/23 Treatments to Date: 8 Cancellations to Date: No Shows to Date: Discharge Status: Recommend MD Follow-up Discharge Summary: Patient last seen in PT on 01/23/23, was awaiting MRI of cervical spine. No significant, lasting changes made with PT treatment to keep UE symptoms centralized to neck. She will benefit from imaging and further testing of c-spine to determine nature of constant radicular UE symptoms. She is discharged from PT. Electronically signed by: Celso David, PT, DPT Please sign and return to therapist. Thank you for your referral.
== END 2023-03-21 10:38 | disposition home or self-care (01) ==
LOC: HO.PT 11:00
PROVIDERS: PCP Physician Assistant; Visit Provider Physician Assistant
DX: M77.8 Other enthesopathies, not elsewhere classified (principal)
CPT/HCPCS: 97110; 97112; 97140; 97161

== ENCOUNTER 2023-02-28 09:02 | Outpatient (AMB) | payer MEDICARE, MEDICAID, SELFPAY ==
[2023-02-28 09:11] VITALS: BP 98/56; PULSE 65; O2SAT 97; BMI 30.5
--- NOTE | 2023-02-28 09:11 | MHC.PC.OV ---
Vital Signs 02/28/23 09:11 Height 4 ft 11 in Weight 151 lb 4 oz BMI 30.5 BP 98/56 L Blood Pressure Location Lt brachial Position Sitting Pulse 65 Pulse Source Pulse Oximeter Pulse Oximetry (%) 97 Oxygen Delivery Method Room Air Intake Visit Reasons: Annual Physical Intake Note: Patient is here today for a physical. Facilities Management Executive Required: No It Instructor: Not Required per policy Accompanied by: Self / Same As Patient Allergies banana [BANANA] Allergy (Intermediate, Verified 02/28/23 09:17) ABD PAIN Medication List - Last Reconciled 02/28/23 by Jacek Champion PA-C acetaminophen (Tylenol Extra Strength) 1,000 mg (2 x 500 mg) PO QID PRN calcium carbonate (Oyster Shell Calcium) 500 mg PO DAILY cholecalciferol (vitamin D3) 50 mcg PO DAILY 90 days fluoxetine 40 mg PO DAILY 90 days furosemide (Lasix) 20 mg PO DAILY 90 days gabapentin 100 mg PO BID 30 days ibuprofen 800 mg PO TID lorazepam 0.5 mg PO BID PRN 7 days meloxicam 15 mg PO DAILY omeprazole 40 mg PO DAILY 90 days trazodone 50 mg PO BEDTIME 90 days Tobacco use date assessed: 02/28/23 HPI Annual Physical HPI Details Patient is a 32-year-old female here today for a routine annual physical.? Patient has a past medical history significant for Congestive heart failure, major depressive disorder, anxiety, macrocytic anemia Cervical spine arthritis: Was having right upper extremity paresthesias. She has gotten EMG which did not show any neuropathy, x-ray of cervical spine did show-->Moderate degenerative changes at C5-C6 and C6-C7 .. Major depressive disorder: Has been fairly stable though has lost her follow-up with her psychiatrist now needs PCP to manage her mental health medications. .. Congestive heart failure:? Patient born with tetralogy of Fallot,? Patient is followed by [facility] banker in [place] (Dr Monet), continues on diuretic therapy daily. Of note has gained weight since last office visit the attributes this to poor diet. .. Microcytic anemia:? Has been on longstanding patient.? B12 and folate levels are normal.? Patient reports she was previously evaluated by Hematology and got bone marrow biopsy without any significant findings. .. Gastric reflux:? Has had a long history of her symptoms that have been able to be controlled with PPI therapy.? She reports recently having episodes of vomiting and epigastric burning pain.? . 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 Mother Asthma Social History (Updated 02/28/23 @ 09:23 by Jacek Champion PA-C) Housing: House Alcohol intake: current Alcohol intake frequency: holidays/special occasions only Patient Tobacco Use Status: Never used Tobacco e-Cigarette/Vaping Use: Never Used Second Hand Smoke Exposure: No service: No Current occupational status: unemployed Current occupational exposures/hazards: No Cognitive needs: No Hearing needs: No Vision needs: Yes Questionnaire Thrive Questionnaire Date Thrive assessed: 11/21/22 RUMA-7 AMB Questionnaire RUMA-7 Date RUMA - 7 assessed: 11/21/22 Source: Developed by Drs. Madi Davalos, Carine Yarbrough, Vladimir Trejo and colleagues, with an educational ronald from [employer]. Review of Systems Const Denies body aches, Denies chills, Denies excessive sweating, Denies fatigue, Denies fever(s) and Denies headache(s) Eyes Denies blurry vision ENT Denies dysphagia, Denies vertigo, Denies dizziness, Denies headache(s), Denies hearing loss and Denies tinnitus Card Denies chest pain, Denies chest pain with activity, Denies syncope, Denies irregular heart rhythm and Denies dyspnea Resp Denies chest congestion, Denies cough, Denies hemoptysis, Denies dyspnea and Denies wheezing GI Denies abdominal pain, Denies melena, Denies hematochezia, Denies coffee ground emesis, Denies dysphagia, Denies diarrhea, Denies nausea and Denies vomiting Denies urinary frequency, Denies dysuria, Denies urinary hesitancy and Denies urinary urgency Musc Denies arthralgias, Denies limited range of motion, Denies muscle cramps and Denies muscle weakness Skin/Breast Denies rash and Denies skin ulcer Neuro Denies Abnormal speech present, Denies confusion, Denies vertigo, Denies dizziness, Denies syncope, Denies headache(s), Denies memory loss and Denies seizure-like activity Psych Denies anxiety, Denies confusion, Denies depression, Denies memory loss, Denies panic attacks and Denies paranoia Endo Denies excessive sweating, Denies fatigue, Denies flushing, Denies polydipsia and Denies polyuria Aller/Immun Denies wheezing Physical exam (Primary Care) Vital Signs: Last Vital Signs Pulse 65 02/28/23 09:11 BP 98/56 L 02/28/23 09:11 Pulse Ox 97 02/28/23 09:11 Oxygen Delivery Method Room Air 02/28/23 09:11 BMI result Body Mass Index 30.5 BMI Assessment/Plan discussion: High Tobacco/Smoking Status: Tobacco use Status Tobacco use date assessed 02/28/23 02/28/23 09:15 Patient Tobacco Use Status Never used Tobacco 02/28/23 09:23 e-Cigarette/Vaping Use Never Used 02/28/23 09:23 Thrive Assessment: Date of Thrive Assessment Date Thrive assessed 11/21/22 02/28/23 09:15 Const Other: Obese General: cooperative, comfortable, no acute distress, alert and awake; No confusion Orientation/consciousness: oriented to person, oriented to place, patient oriented x3 and No confusion HENMT Head: Yes normocephalic Ears: external ears normal and TM's normal bilaterally Face and sinus: No sinus tenderness Mouth: Normal oral and palatal mucosa present and tongue normal Teeth and gingiva: dentition normal and gingiva normal Throat: Yes posterior oropharynx normal, Yes tonsils normal and Yes uvula midline Eyes Conjunctivae: conjunctivae normal Sclerae: sclerae normal Pupils: Equal, round and reactive pupils present EOM: EOMs intact bilaterally Direct Ophthalmoscopy: No no photophobia Neck Neck: Yes no lymphadenopathy, No tender and Yes no JVD Thyroid: Thyroid normal Carotids: no bruits Chest Chest palpation & inspection: no tenderness Resp Effort & Inspection: normal respiratory effort, no audible wheezes, not labored and no stridor Auscultation: no crackles, no rales, no rhonchi and no wheezes Cardio Jugular venous distension: no JVD Rate: regular rate, not bradycardic and not tachycardic Rhythm: regular rhythm Bruits: no carotid bruits Peripheral pulses: Peripheral pulses 2+ throughout GI Inspection: Yes normal to inspection, No abdominal wall ecchymosis and No visible herniation Palpation (GI): Soft to palpation, nontender, no guarding, not rigid and No hepatosplenomegaly present Auscultation: normoactive bowel sounds General: Yes no CVA tenderness Back/Spine/Pelvis Back: no CVA tenderness and No back tenderness Cervical Spine: cervical ROM normal Thoracic/Lumbar Spine: thoracic and lumbar spine normal to inspection, straight leg raise negative bilaterally, No thoraco-lumbar ROM limited and No lumbar spinal tenderness Skin Lesions: no lesions Rashes: no rashes Wounds: no wounds Neuro General: oriented to person, oriented to place, patient oriented x3, CN's II-XI intact bilaterally and No confusion Cranial nerves: Yes Equal, round and reactive pupils present and Yes Normal accommodation reflex present Cognition (Neuro): normal cognition Speech: No Abnormal speech present Gait exam (Neuro): Normal gait present Motor exam (neuro): 5/5 motor strength present throughout Extrem Right upper extremity: full ROM; no cyanosis Left upper extremity: full ROM; no cyanosis Right lower extremity: no edema Left lower extremity: no edema Psych Appearance: grossly normal Mental Status: mental status grossly normal Affect: normal affect Attitude: cooperative Thought process: Normal thought process present Immunizations pneumoc 20-suma conj-dip cr(PF) 0.5 mL IM syringe Performing Provider: Jacek Champion PA-C Performing Location: [facility] Administered by: ANGÉLICA Marsh on 02/28/23 09:40 Dose Route Admin Location Dispensed Lot Number Expiration Date NDC Poultry Veterinarian 0.5 mL IM Left Deltoid 0.5 mL [id number] 04/11/24 2084-2873-96 [employer] VIS Given Date VIS Provided VIS Publication Date 02/28/23 Single Vaccine 21 Eligibility Eligibility Date Funding Source Not [facility] Eligible 02/28/23 Private Assessment and Plan Assessment & Plan (1) Physical exam: Code(s): Z00.00 - Encounter for general adult medical examination without abnormal findings (2) Congestive heart failure: Code(s): I50.9 - Heart failure, unspecified Qualifiers: Heart failure type: other Qualified Code(s): I50.9 - Heart failure, unspecified Plan: Has been born with tetralogy of Fallot, followed by a [place] [facility]. Continues Lasix and seems to be euvolemic on physical exam today (3) RUMA (generalized anxiety disorder): Code(s): F41.1 - Generalized anxiety disorder Plan: Patient reports her anxiety is fairly well managed with current mental health medication, does use lorazepam on a limited p.r.n. basis for panic. (4) Cervical radiculopathy: Code(s): M54.12 - Radiculopathy, cervical region Plan: As per HPI patient's most recent cervical spine x-ray did show moderate arthritis. Her right upper extremity paresthesias have gotten better with physical therapy. (5) Cervical cancer screening: Code(s): Z12.4 - Encounter for screening for malignant neoplasm of cervix Plan: Needs Pap smear (6) Macrocytic anemia: Code(s): D53.9 - Nutritional anemia, unspecified Plan: Has chronic macrocytic anemia, most recent B12 folate levels have been stable. Will recheck as patient does report some shortness of breath on exertion. Orders: Orders Complete Blood Count no Diff 02/28/23 D53.9 - Nutritional anemia, unspecified Vitamin B12 and Folate 02/28/23 D53.9 - Nutritional anemia, unspecified, E53.8 - Deficiency of other specified B group vitamins Pneumococcal 20 Immunization 02/28/23 Z23 - Encounter for immunization NT-proBNP 02/28/23 I50.9 - Heart failure, unspecified Comprehensive [place]. 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
== END 2023-02-28 09:37 | disposition home or self-care (01) ==
PROVIDERS: PCP Physician Assistant; Visit Provider Physician Assistant
DX: Z23 Encounter for immunization (principal)
CPT/HCPCS: 90471; 90677; 99395

== ENCOUNTER 2023-02-28 09:44 | Outpatient (REF) | payer MEDICARE, MEDICAID, SELFPAY ==
[2023-02-28 10:43] LABS: Hematocrit 32.5 % (37.0-47.0); Hemoglobin 11.3 g/dl (12.0-16.0); Mean Corpuscular HGB Conc 34.8 g/dl (31.0-35.0); Mean Corpuscular Hemoglobin 38.4 pg (27.0-33.0); Mean Platelet Volume 10.1 fL (9.4-12.3); Platelet Count 249 X10*3/uL (160-400); Red Blood Count 2.94 X10*6/uL (4.20-5.50); Red Cell Distribution Width 12.1 % (11.0-16.0)
[2023-02-28 10:45] LABS: Mean Corpuscular Volume 110.5 fL (80.0-98.0)
[2023-02-28 11:50] LABS: Alanine Aminotransferase 25 U/L (0-31); Albumin Level 3.7 g/dL (3.5-5.0); Alkaline Phosphatase 41 U/L (39-117); Anion Gap 11 (12-20); Aspartate Amino Transferase 22 U/L (5-31); Bilirubin Total 0.3 mg/dL (0.0-1.0); Blood Urea Nitrogen 16 mg/dL (9-16); Calcium 8.9 mg/dL (8.4-10.2); Carbon Dioxide 26 mmol/L (22-29); Chloride 104 mmol/L (96-108); Estimated Glomerular Filt Rate > 60; Glucose Fasting 92 mg/dL (60-99); Iron 81 mcg/dL (30-160); Percent Iron Saturation 25 % (15-50); Potassium 4.2 mmol/L (3.3-5.1); Sodium 137 mmol/L (135-145); Total Iron Binding Capacity 324 mcg/dL (228-428); Total Protein 6.6 g/dL (6.5-8.0); Unsaturated Iron Binding 243 ug/dL
[2023-02-28 12:25] LABS: Folate 8.2 ng/mL (> or = 4.0); Vitamin B12 262 pg/mL (200-900)
[2023-03-06 22:08] LABS: NT-proBNP 293 pg/mL (<125)
== END 2023-02-28 09:45 | disposition home or self-care (01) ==
LOC: HO.LAB 09:44
PROVIDERS: PCP Physician Assistant; Visit Provider Physician Assistant
DX: D50.9 Iron deficiency anemia, unspecified (principal); I50.9 Heart failure, unspecified; E53.8 Deficiency of other specified B group vitamins
CPT/HCPCS: 36415; 80053; 82607; 82746; 83540; 83880; 85027

== ENCOUNTER 2023-03-09 09:17 | Outpatient (REF) | payer MEDICARE, MEDICAID, SELFPAY ==
--- NOTE | ~2023-03-09 | MR_ITS ---
EXAMINATION: MR CERVICAL SPINE WITHOUT CONTRAST CLINICAL INFORMATION: Right arm pain/paresthesias COMPARISON: Cervical spine radiographs 01/02/2023 TECHNIQUE: MRI of the cervical spine was obtained using routine sequences without contrast. FINDINGS: The craniocervical junction is intact. There is slight retroflexion of the odontoid process. Reversal of the mid to lower cervical lordosis. Trace retrolisthesis at C6-C7. Vertebral body heights are normal without acute compression fracture. No suspicious osseous lesion. Multilevel disc desiccation with mild C5-C6 and C6-C7 disc height loss. Level by level detail as follows: C2-C3: No spinal canal or neural foraminal stenosis. C3-C4: Small disc osteophyte complex with left greater than right uncovertebral joint hypertrophy. No spinal canal or right neural foraminal stenosis. Minimal left neural foraminal narrowing. C4-C5: Small disc osteophyte complex with left posterolateral disc protrusion and left greater than right uncovertebral joint hypertrophy. No spinal canal stenosis, noting flattening along the ventral thecal sac and encroachment upon the cord. Minimal left without right neural foraminal narrowing. C5-C6: Disc osteophyte complex with broad-based posterior disc protrusion, central annular fissure, and bilateral uncovertebral joint hypertrophy. No spinal canal stenosis. Minimal left greater than right neural foraminal narrowing. C6-C7: Minor uncovertebral spurring without spinal canal or neural foraminal stenosis. C7-T1: No spinal canal or neural foraminal stenosis. Punctate focus of susceptibility within the left cord at C6-C7 (image 18, series 9) without corresponding signal abnormality on any other pulse sequence. No surrounding vasogenic edema to suggest recent hemorrhage. No epidural fluid collection, mass, or hematoma. No significant abnormalities of the paraspinal musculature. The flow voids of the major cervical vessels are maintained. The visualized intracranial structures are normal. Susceptibility artifact related to median sternotomy. MR/MR cervical spine wo con IMPRESSION: 1. Punctate focus of susceptibility within the left cord at C6-C7 may reflect a small cavernoma in this region versus artifact. No signal abnormality on any other pulse sequence, specifically without surrounding vasogenic edema to suggest recent hemorrhage. Recommend attention on follow-up contrast enhanced MRI of the cervical spine with addition of a sagittal GRE sequence. 2. Mild multilevel cervical spondylosis without significant spinal canal or neural foraminal stenosis. Minimal multilevel predominantly left-sided neural foraminal narrowing.
== END 2023-03-09 09:18 | disposition home or self-care (01) ==
LOC: HO.MRI 09:17
PROVIDERS: PCP Physician Assistant; Visit Provider Physician Assistant
DX: M54.12 Radiculopathy, cervical region (principal)
CPT/HCPCS: 72141

== ENCOUNTER → 2023-04-10 08:49 | Outpatient (BNV) | payer MEDICARE, MEDICAID, SELFPAY | PROVIDERS: PCP Physician Assistant; Visit Provider Internal Medicine | DX: D53.9 Nutritional anemia, unspecified (principal) | CPT/HCPCS: 99204; 99213 ==

== ENCOUNTER 2023-05-25 13:03 | Outpatient (REF) | payer MEDICARE, MEDICAID, SELFPAY ==
[2023-05-26 03:48] LABS: CT PCR NOT DETECTED (Not Detect.); NG PCR NOT DETECTED (Not Detect.)
[2023-05-26 13:45] LABS: BV Int Neg Control Negative (Negative); BV Int Pos Control Positive (Positive)
[2023-06-02 03:48] LABS: HPV mRNA E6/E7 rflx Not Detected (Not Detected)
== END 2023-05-25 13:04 | disposition home or self-care (01) ==
LOC: HO.LAB 13:03
PROVIDERS: PCP Physician Assistant; Visit Provider Advanced Practice Midwife
DX: Z01.419 Encounter for gynecological examination (general) (routine) without abnormal findings (principal); Z20.2 Contact with and (suspected) exposure to infections with a predominantly sexual mode of transmission; Z11.51 Encounter for screening for human papillomavirus (HPV)
CPT/HCPCS: 0353U; 87480; 87510; 87624; 87660; 88142

== ENCOUNTER 2023-05-25 13:03 | Outpatient (AMB) | payer MEDICARE, MEDICAID, SELFPAY ==
[2023-05-25 13:11] VITALS: BP 128/70; BMI 30.1
--- NOTE | 2023-05-25 13:11 | MHC.OFFVIS ---
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 Required: No Information Interpreted: clinical only Analytics Consultant: Analytics Consultant Present Allergies banana [BANANA] Allergy (Intermediate, Verified 05/25/23 13:14) ABD PAIN Medication List - Last Reconciled 05/25/23 by Deirdre Benz CNM acetaminophen (Tylenol Extra Strength) 1,000 mg (2 x 500 mg) PO QID PRN calcium carbonate (Oyster Shell Calcium) 500 mg PO DAILY cholecalciferol (vitamin D3) 50 mcg PO DAILY 90 days fluoxetine 40 mg PO DAILY 90 days furosemide (Lasix) 20 mg PO DAILY 90 days gabapentin 100 mg PO BID 30 days ibuprofen 800 mg PO TID lorazepam 0.5 mg PO BID PRN 7 days meloxicam 15 mg PO DAILY omeprazole 40 mg PO DAILY 90 days trazodone 50 mg PO BEDTIME 90 days Is last menstrual period known: Yes Last menstrual period: 05/09/23 Do you need a note to return to daycare/school/sports/work: No HPI New patient Annual HPI Details 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 She has of significant medical history significant for tetralogy of Fallot and she had heart surgery as an infant at [facility] she had her baby at [facility] and she said they did monitor her and she went in and had lots of edema 1 week before her due date and they admitted her and she delivered and she did have preeclampsia and the day after she went home she had more complications and was admitted back in to the hospital with congestive heart failure. She also was admitted 4 years later also with congestive heart failure. She has to watch for weight gain and swelling of her legs and she is on Lasix. She is using condoms for control and is not interested in any other method she says her uses and make sure they use them carefully she has regular periods and she is not interested in IUDs or anything else she was on Depo in the past but did not want to be on it anymore [facility] Medical History COVID-19 Amenorrhea Hypocalcemia Thoracic back pain Pulmonic valve regurgitation Depression Congestive heart failure Encounter for Medicare annual wellness exam Macromastia Murmur Back pain Neck pain Surgical History Tetralogy of Fallot s/p repair Family History Father No problems noted. Mother Asthma Social History Housing: House Alcohol intake: current Alcohol intake frequency: holidays/special occasions only Patient Tobacco Use Status: Never used Tobacco e-Cigarette/Vaping Use: Never Used Second Hand Smoke Exposure: No service: No Current occupational status: unemployed Current occupational exposures/hazards: No Cognitive needs: No Hearing needs: No Vision needs: Yes Female Reproductive History Menstrual Age of Menarche: 14 Duration of menses: <3 days Date of last menstrual period: 05/09/23 control method: none Total pregnancies: 1 Full term: 1 History of abnormal pap smear: No (2019 neg.([facility])) Physical Exam Vital Signs: Last Vital Signs BP 128/70 05/25/23 13:11 BMI result Body Mass Index 30.1 Const General: healthy appearing, comfortable, no acute distress, well developed and alert Nutritional Appearance: average body habitus Orientation/consciousness: patient oriented x3 Limitations: no limitations HEENT Head: Yes normocephalic Neck Neck: Yes normal visual inspection Chest Other: Breasts are pendulous no masses. Chest palpation & inspection: normal inspection of the chest Breast/axilla inspection: normal inspection of the breasts and normal inspection of the axillae Breast/axilla palpation: normal palpation of the breasts and normal palpation of the axillae Resp Effort & Inspection: normal respiratory effort GI Inspection: Yes normal to inspection, No Abdominal wall edema and No distended Palpation (GI): Soft to palpation and nontender Other: Normal external exam slightly pink at introitus consistent with possible recent pad use patient denies panty liner use except with menses General: Yes bladder normal to palpation External Female Exam: normal external appearance and normal appearance of the urethra Speculum Exam - Vagina: normal appearance of the vagina, normal palpation and normal vaginal discharge Speculum Exam - Cervix: normal appearance of the cervix, normal palpation and nontender Bimanual exam- vagina & uterus: normal bimanual exam, normal palpation, uterine size normal, bladder normal to palpation, consistency normal, normal palpation, uterine mobility normal, uterine shape normal, No Cervical tenderness present, non-tender and no cervical motion tenderness Bimanual Exam- Adnexa, other: normal adnexae, no masses, normal and No adnexal tenderness Neuro General: patient oriented x3 Assessment & Plan Assessment & Plan (1) Cervical cancer screening: Code(s): Z12.4 - Encounter for screening for malignant neoplasm of cervix (2) History of CHF (congestive heart failure): Comment: Hx of tetralogy of fallot w repair, and pulmonic valve regurge, hx of preeclampsia; hospitalized 2016 , and 2020.... 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 She has of significant medical history significant for tetralogy of Fallot and she had heart surgery as an infant at [facility] she had her baby at [facility] and she said they did monitor her and she went in and had lots of edema 1 week before her due date and they admitted her and she delivered and she did have preeclampsia and the day after she went home she had more complications and was admitted back in to the hospital with congestive heart failure. She also was admitted 4 years later also with congestive heart failure. She has to watch for weight gain and swelling of her legs and she is on Lasix. She is using condoms for control and is not interested in any other method she says her uses and make sure they use them carefully she has regular periods and she is not interested in IUDs or anything else she was on Depo in the past but did not want to be on it anymore. Did review the 2 kinds of IUDs and how that sometimes they can be much more effective but she is not interested. She says her daughter is doing well -----Discussed in this visit the following: healthy balanced diet, regular and consistent exercise, getting recommended health screens, doing the best she can for her particular health concerns, kegel exercises, pap smear screening and followup recommendations, mammography screening and SBE, normal changes in cycles in her life stage--- . Orders: Orders Bacterial Vaginosis Panel Today Z20.2 - Contact with and (suspected) exposure to infections with a predominantly sexual mode of transmission CT NG by PCR Today Z01.419 - Encounter for gynecological examination (general) (routine) without abnormal findings Pap Smear Today Z01.419 - Encounter for gynecological examination (general) (routine) without abnormal findings Coding Level of Care Code New Pt Prev Care [id number]([id number] Diagnoses Cervical cancer screening Z12.4 History of CHF (congestive heart failure) Z86.79 Women's annual routine gynecological examination Z01.419 control counseling Z30.09
== END 2023-05-25 13:51 | disposition home or self-care (01) ==
PROVIDERS: PCP Physician Assistant; Visit Provider Advanced Practice Midwife
DX: Z01.419 Encounter for gynecological examination (general) (routine) without abnormal findings (principal); Z12.4 Encounter for screening for malignant neoplasm of cervix; Z86.79 Personal history of other diseases of the circulatory system; Z30.09 Encounter for other general counseling and advice on contraception
CPT/HCPCS: 99385

== ENCOUNTER 2023-06-29 09:16 | Outpatient (AMB) | payer MEDICARE, MEDICAID, SELFPAY ==
--- NOTE | 2023-06-29 09:08 | A.OFFPC_ITS ---
Vital Signs 06/29/23 09:12 Height 4 ft 11 in Weight 151 lb 8 oz BMI 30.6 Intake Visit Reasons: f/u anemia/ [phone] Security Support Analyst Required: No Accompanied by: Self / Same As Patient Allergies banana [BANANA] Allergy (Intermediate, Verified 06/29/23 09:22) ABD PAIN Medication List - Last Reconciled 06/29/23 by Jacek Champion PA-C acetaminophen (Tylenol Extra Strength) 1,000 mg (2 x 500 mg) PO QID PRN calcium carbonate (Oyster Shell Calcium) 500 mg PO DAILY cholecalciferol (vitamin D3) 50 mcg PO DAILY 90 days fluoxetine 40 mg PO DAILY 90 days furosemide (Lasix) 20 mg PO DAILY 90 days ibuprofen 800 mg PO TID lorazepam 0.5 mg PO BID PRN 7 days meloxicam 15 mg PO DAILY omeprazole 40 mg PO DAILY 90 days trazodone 50 mg PO BEDTIME 90 days Tobacco use date assessed: 06/29/23 Dental Screening Dental Screen Date: 06/29/23 Did you have a dental visit in the last 12 months?: No Did you have a dental problem in the last 6 months where you did not have access to dental care?: No Was dental information given to patient?: No HPI f/u anemia/ [phone] HPI Details Patient is a 32-year-old female being evaluated today via telephone.? Patient has a past medical history significant for Congestive heart failure, major depressive disorder, anxiety, macrocytic anemia Concern --> anxiety has been fairly well managed with p.r.n. use over lorazepam. .. Major depressive disorder: Has been fairly stable though has lost her follow-up with her psychiatrist now needs PCP to manage her mental health medications. .. Congestive heart failure:? Patient born with tetralogy of Fallot,? Patient is followed by scarifier operator in [place] (Dr Monet), continues on diuretic therapy daily. Of note has gained weight since last office visit the attributes this to poor diet. .. Microcytic anemia:? Has been on longstanding patient.? B12 and folate levels are normal.? Patient reports she was previously evaluated by Hematology and got bone marrow biopsy without any significant findings. Has recently followed up with Hematology in believes her macrocytosis may be genetic. .. Gastric reflux:? Has had a long history of her symptoms that have been able to be controlled with PPI therapy.? Laboratory Tests 04/10/23 04/10/23 06/26/23 09:50 09:50 08:53 RBC Hgb 11.6 L 12.5 MCV 106.8 H Lactate Dehydrogen ase Vitamin B12 06/26/23 06/26/23 08:53 08:53 RBC 3.30 L Hgb MCV 106.7 H Lactate Dehydrogen ase 223 H Vitamin B12 512 PFSH Medical History COVID-19 Amenorrhea Hypocalcemia Thoracic back pain Pulmonic valve regurgitation Depression Congestive heart failure Encounter for Medicare annual wellness exam Macromastia Murmur Back pain Neck pain Surgical History Tetralogy of Fallot s/p repair Family History Father No problems noted. Mother Asthma Social History Housing: House Alcohol intake: current Alcohol intake frequency: holidays/special occasions only Patient Tobacco Use Status: Never used Tobacco e-Cigarette/Vaping Use: Never Used Second Hand Smoke Exposure: No service: No Current occupational status: unemployed Current occupational exposures/hazards: No Cognitive needs: No Hearing needs: No Vision needs: Yes Female Reproductive History Menstrual Age of Menarche: 14 Questionnaire PHQ-9 Over the last 2 weeks, how often have you been bothered by any of the following problems? 1. Little interest or pleasure in doing things: not at all 2. Feeling down, depressed, or hopeless: not at all 3. Trouble falling or staying asleep, or sleeping too much: not at all 4. Feeling tired or having little energy: not at all 5. Poor appetite or overeating: not at all 6. Feeling bad about yourself - or that you are a failure or have let yourself or your family down: not at all 7. Trouble concentrating on things, such as reading the newspaper or watching television: not at all 8. Moving or speaking so slowly that other people could have noticed. Or the opposite - being so fidgety or restless that you have been moving around a lot more than usual: not at all 9. Thoughts that you would be better off or of hurting yourself in some way: not at all Total score: 0 Depression Screening Interpretation: Negative Depression Screening Done: Yes 22881 - PHQ-9 Billing: Yes Source: Developed by Drs. Madi Davalos, Carine Yarbrough, Vladimir Trejo and colleagues, with an educational ronald from [employer]. Thrive Questionnaire Date Thrive assessed: 06/29/23 I am a: Patient What is your living situation today?: I have a steady place to live Within the past 12 months, did the food you bought not last and you didn't have the money to get more?: Never true Within the past 12 months, did you worry whether your food would run out before you got money to buy more?: Never true Do you have trouble paying for medicines?: No Do you have trouble getting transportation to medical appointments?: No Do you have trouble paying your heating and electricity bill?: No Do you have trouble taking care of your child, family member or friend?: No Do you have trouble with day-to-day activities such as bathing, preparing meals, shopping, managing finances, etc.?: No Are you currently unemployed and looking for a job?: No Are you interested in more education?: No Please select the resources that you would like help with: None AUDIT C Alcohol Use Questionnaire (AUDIT-C) 1. How often do you have a drink containing alcohol?: Monthly or less 2. How many drinks containing alcohol do you have on a typical day when you are drinking?: 1 or 2 3. How often do you have six or more drinks on one occasion?: Never Total Score: 1 RUMA-7 AMB Questionnaire RUMA-7 Date RUMA - 7 assessed: 06/29/23 Feeling nervous, anxious, or on edge: 2 = More than half the days Not being able to stop or control worryin = More than half the days Worrying too much about different things: 3 = Nearly every day Trouble relaxin = Not at all Being so restless that it is hard to sit still: 0 = Not at all Becoming easily annoyed or irritable: 2 = More than half the days Feeling afraid as if something awful might happen: 1 = Several days Total RUMA-7 score (0-4 normal; 5-9 mild; 10-14 moderate; 15-21 severe): 10 Source: Developed by Drs. Madi Davalos, Carine Yarbrough, Vladimir Trejo and colleagues, with an educational ronald from [employer]. RUMA-7 Assessment Billing RUMA-7 Assessment Tool: RUMA-7 Assessment 46428 Review of Systems Const Denies headache(s) Eyes Denies loss of vision ENT Denies vertigo, Denies dizziness, Denies headache(s) and Denies sore throat Card Denies chest pain, Denies leg edema and Denies lightheadedness Resp Denies cough, Denies hemoptysis and Denies wheezing GI Denies abdominal pain, Denies melena, Denies constipation, Denies diarrhea and Denies vomiting Denies urinary frequency, Denies dysuria and Denies urinary urgency Musc Denies arthralgias, Denies joint swelling, Denies numbness and Denies tingling Neuro Denies behavioral changes, Denies vertigo, Denies dizziness, Denies headache(s), Denies loss of vision, Denies memory loss, Denies numbness and Denies tingling Psych Reports anxiety, Denies behavioral changes, Denies depression, Denies memory loss and Reports panic attacks [place]/Lymph Denies easy bleeding and Denies easy bruising Aller/Immun Denies wheezing Physical exam (Primary Care) BMI result Body Mass Index 30.6 Tobacco/Smoking Status: Tobacco use Status Tobacco use date assessed 06/29/23 06/29/23 09:15 Patient Tobacco Use Status Never used Tobacco 06/29/23 09:08 e-Cigarette/Vaping Use Never Used 06/29/23 09:08 PHQ-9: PHQ-9 Score PHQ-9: Total score 0 06/29/23 09:15 Depression Screening Interpretation: Negative Thrive Assessment: Date of Thrive Assessment Date Thrive assessed 06/29/23 06/29/23 09:15 Telehealth Telehealth Location of provider rendering services: practice address Location of patient: address on file Patient Identification confirmed using: Name, : Yes Telehealth method: voice only Patient verbally consented to treatment: Yes Patient verbally consented to billing insurance company: Yes Patient informed of any privacy concerns related to visit: Yes Minutes spent on Phone/Video with Pt.: 11 Assessment and Plan Assessment & Plan (1) RUMA (generalized anxiety disorder): Code(s): F41.1 - Generalized anxiety disorder Plan: Patient's RUMA-7 score positive for anxiety which has been existing condition for her. Patient reports her anxiety is fairly well managed with current mental health medication, does use lorazepam on a limited p.r.n. basis for panic. (2) Screening for diabetes mellitus (DM): Code(s): Z13.1 - Encounter for screening for diabetes mellitus (3) Congestive heart failure: Code(s): I50.9 - Heart failure, unspecified Qualifiers: Heart failure type: other Qualified Code(s): I50.9 - Heart failure, unspecified Plan: Has been born with tetralogy of Fallot, followed by a [place] scarifier operator. (4) Macrocytic anemia: Code(s): D53.9 - Nutritional anemia, unspecified Plan: Has chronic macrocytic anemia, most recent B12 folate levels have been stable. Has followed up with Hematology whom believes her macrocytosis is genetic. Will continue to follow on annual basis. Orders: Orders Complete Blood Count no Diff Today D53.9 - Nutritional anemia, unspecified Comprehensive [place]. Panel Fast Today Z13.1 - Encounter for screening for diabetes mellitus Vitamin B12 and Folate Today D53.9 - Nutritional anemia, unspecified, E53.8 - Deficiency of other specified B group vitamins Medications: Refilled lorazepam 0.5 mg PO BID PRN 14 tabs 0RF anxiety 7 days F33.1 - Major depressive disorder, recurrent, moderate, F41.1 - Generalized anxiety disorder Coding Level of Care Code Tele Est Pt Level 3 (67560) Diagnoses RUMA (generalized anxiety disorder) F41.1 Screening for diabetes mellitus (DM) Z13.1 Other congestive heart failure I50.9 Heart failure type: other Macrocytic anemia D53.9 Additional Codes RUMA-7 Assessment Billing - RUMA-7 Assessment Tool: RUMA-7 Assessment 46261 ([id number])
[2023-06-29 09:12] VITALS: BMI 30.6
== END 2023-06-29 10:10 | disposition home or self-care (01) ==
LOC: HO.HMGH 09:16
PROVIDERS: PCP Physician Assistant; Visit Provider Physician Assistant
DX: F41.1 Generalized anxiety disorder (principal); Z13.1 Encounter for screening for diabetes mellitus; I50.9 Heart failure, unspecified; D53.9 Nutritional anemia, unspecified
CPT/HCPCS: G2252

== ENCOUNTER 2024-01-25 10:18 | Outpatient (AMB) | payer MEDICARE, MEDICAID, SELFPAY ==
--- NOTE | 2024-01-25 10:19 | AM.OFFWIN_ITS ---
Intake Vital Signs 3 01/25/24 10:21 Height 4 ft 11 in Weight 156 lb BMI 31.5 BP 106/60 Blood Pressure Location Rt brachial Position Sitting Pulse 68 Pulse Source Pulse Oximeter Temp 98.2 F Temp Source Oral Pulse Oximetry (%) 98 Oxygen Delivery Method Room Air Intake Visit Reasons: Impetigo Intake Note: pt c/o Impetigo. Daughter had it. Got it from her daughter. Started last weekend. Rashes on nose and leg Patient Tobacco Use Status: Never used Tobacco Allergies banana [BANANA] Allergy (Intermediate, Verified 01/25/24 10:20) ABD PAIN Do you need a note to return to daycare/school/sports/work: No HPI HPI Comments 2 History of Present Illness0 Details 33 y/o female patient who presents to [facility] walk in clinic with c/o skin infection x 1 week. She believes she might have Impetigo. Her daughter was diagnosed recently with it. She noticed lesions on her nose, scalp and left thigh. She has been applying Mupirocin Ointment BID for 7 days (this is her daughter's cream). Denies fevers, chills, nausea or vomiting. COUNTS INCLUDE 234 BEDS AT THE [facility] Medical History COVID-19 Amenorrhea Hypocalcemia Thoracic back pain Pulmonic valve regurgitation Depression Congestive heart failure Encounter for Medicare annual wellness exam Macromastia Murmur Back pain Neck pain Surgical History Tetralogy of Fallot s/p repair Family History Father No problems noted. Mother Asthma Social History Housing: House Alcohol intake: current Alcohol intake frequency: holidays/special occasions only Patient Tobacco Use Status: Never used Tobacco e-Cigarette/Vaping Use: Never Used Second Hand Smoke Exposure: No service: No Current occupational status: unemployed Current occupational exposures/hazards: No Cognitive needs: No Hearing needs: No Vision needs: Yes Female Reproductive History Menstrual Age of Menarche: 14 Review of Systems Const All systems reviewed & are unremarkable except as noted in HPI and below Physical Exam Vital Signs: Last Vital Signs Temp 98.2 F 01/25/24 10:21 Pulse 68 01/25/24 10:21 BP 106/60 01/25/24 10:21 Pulse Ox 98 01/25/24 10:21 Oxygen Delivery Method Room Air 01/25/24 10:21 BMI result Body Mass Index 31.5 Const General: cooperative and no acute distress Nutritional Appearance: obese Orientation/consciousness: patient oriented x3 Skin General skin exam: crusts, dry skin and erythema Full body images: 2 1. Medium round sized lesion left thigh (Anterior) erythema with crusting center. 2. Dry crusting lesions on right nostril yellowish in color 3. Dry scalp lesion white and crusting. Neuro General: patient oriented x3, gait normal and moves all extremities Psych Speech and movement: Normal speech and movement present Assessment & Plan Assessment & Plan (1) Impetigo: Code(s): L01.00 - Impetigo, unspecified Plan: Keep area clean and dry Ordered Oral Abx Scalp lesions most likely Folliculitis. left anterior thigh ?? Molluscum Contagiosum Medications: New 2 dicloxacillin 500 mg PO Q6H 7 days 28 caps 0RF L01.00 - Impetigo, unspecified Coding Level of Care Code Est Pt Level 3 (73542) Diagnoses Impetigo L01.00 Time Spent (min) 15
[2024-01-25 10:21] VITALS: BP 106/60; PULSE 68; TEMP 36.8; O2SAT 98; BMI 31.5
== END 2024-01-25 10:49 | disposition home or self-care (01) ==
PROVIDERS: PCP Physician Assistant; Visit Provider Nurse Practitioner Family
DX: L01.00 Impetigo, unspecified (principal)
CPT/HCPCS: 99213

== ENCOUNTER 2024-03-06 09:38 | Outpatient (AMB) | payer MEDICARE, MEDICAID, SELFPAY ==
--- NOTE | 2024-03-06 09:48 | A.OFFPC_ITS ---
Vital Signs 3 03/06/24 09:49 Height 4 ft 11 in Weight 151 lb 8 oz BMI 30.6 BP 90/68 Blood Pressure Location Lt brachial Position Sitting Pulse 75 Pulse Source Pulse Oximeter Pulse Oximetry (%) 98 Oxygen Delivery Method Room Air Intake Visit Reasons: Annual Exam Allergies banana [BANANA] Allergy (Intermediate, Verified 03/06/24 09:59) ABD PAIN Medication List - Last Reconciled 03/06/24 by Jacek Champion PA-C acetaminophen (Tylenol Extra Strength) 1,000 mg (2 x 500 mg) PO QID PRN calcium carbonate (Oyster Shell Calcium) 500 mg PO DAILY cholecalciferol (vitamin D3) 50 mcg PO DAILY 90 days dicloxacillin 500 mg PO Q6H 7 days fluoxetine 40 mg PO DAILY 90 days furosemide (Lasix) 20 mg PO DAILY 90 days ibuprofen 800 mg PO TID PRN meloxicam 15 mg PO DAILY omeprazole 40 mg PO DAILY 90 days trazodone 50 mg PO BEDTIME 90 days Tobacco use date assessed: 06/29/23 Dental Screening Dental Screen Date: 06/29/23 HPI Annual Exam 2 HPI0 Details Patient is a 33-year-old female here today for routine annual physical.? Patient has a past medical history significant for Congestive heart failure, major depressive disorder, anxiety, macrocytic anemia Concern --> reports she has been feeling a bit fatigued and would like her blood levels checked. Does have a chronic history of microcytic anemia. Also has had a umbilical hernia over the past 8 years since her . Has not bothered her until recently, has been having pain in her umbilical region and has been having vomiting episodes. She is interested in seeing general surgeon for possible elective hernia surgery .. Major depressive disorder: Has been fairly stable though has lost her follow-up with her psychiatrist now needs PCP to manage her mental health medications. .. Congestive heart failure:? Patient born with tetralogy of Fallot,? Patient is followed by sports anchor in [place] (Dr Monet), continues on diuretic therapy daily. Of note has gained weight since last office visit the attributes this to poor diet. .. Microcytic anemia:? Has been on longstanding patient.? B12 and folate levels are normal.? Patient reports she was previously evaluated by Hematology and got bone marrow biopsy without any significant findings. Has recently followed up with Hematology in believes her macrocytosis may be genetic. .. Gastric reflux:? Has had a long history of her symptoms that have been able to be controlled with PPI therapy.? 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 Mother Asthma Social History (Updated 03/06/24 @ 10:03 by Jacek Champion PA-C) Housing: House Alcohol intake: current Alcohol intake frequency: holidays/special occasions only Patient Tobacco Use Status: Never used Tobacco e-Cigarette/Vaping Use: Never Used Second Hand Smoke Exposure: No service: No Current occupational status: unemployed Current occupational exposures/hazards: No Cognitive needs: No Hearing needs: No Vision needs: Yes Female Reproductive History Menstrual Age of Menarche: 14 Questionnaire PHQ-9 Over the last 2 weeks, how often have you been bothered by any of the following problems? 1. Little interest or pleasure in doing things: several days 2. Feeling down, depressed, or hopeless: several days 3. Trouble falling or staying asleep, or sleeping too much: nearly every day 4. Feeling tired or having little energy: nearly every day 5. Poor appetite or overeating: not at all 6. Feeling bad about yourself - or that you are a failure or have let yourself or your family down: several days 7. Trouble concentrating on things, such as reading the newspaper or watching television: not at all 8. Moving or speaking so slowly that other people could have noticed. Or the opposite - being so fidgety or restless that you have been moving around a lot more than usual: not at all 9. Thoughts that you would be better off or of hurting yourself in some way: not at all Total score: 9 Depression Screening Interpretation: Positive Depression Screening Follow-up: Existing condition Depression Screening Done: Yes 27390 - PHQ-9 Billing: Yes Source: Developed by Drs. Madi Davalos, Carine Yarbrough, Vladimir Trejo and colleagues, with an educational ronald from [employer]. Thrive Questionnaire Date Thrive assessed: 03/06/24 I am a: Patient What is your living situation today?: I have a steady place to live Within the past 12 months, did the food you bought not last and you didn't have the money to get more?: Never true Within the past 12 months, did you worry whether your food would run out before you got money to buy more?: Never true Do you have trouble paying for medicines?: No Do you have trouble getting transportation to medical appointments?: No Do you have trouble paying your heating and electricity bill?: No Do you have trouble taking care of your child, family member or friend?: No Do you have trouble with day-to-day activities such as bathing, preparing meals, shopping, managing finances, etc.?: No Are you currently unemployed and looking for a job?: No Are you interested in more education?: No Please select the resources that you would like help with: None Currently or been in a relationship where the following occur: No concerns reported THRIVE Score: 0 AUDIT C Alcohol Use Questionnaire (AUDIT-C) 1. How often do you have a drink containing alcohol?: 2-4 times a month 2. How many drinks containing alcohol do you have on a typical day when you are drinking?: 3 or 4 3. How often do you have six or more drinks on one occasion?: Never Total Score: 3 RUMA-7 AMB Questionnaire RUMA-7 Date RUMA - 7 assessed: 03/06/24 Feeling nervous, anxious, or on edge: 1 = Several days Not being able to stop or control worryin = Several days Worrying too much about different things: 1 = Several days Trouble relaxin = Not at all Being so restless that it is hard to sit still: 0 = Not at all Becoming easily annoyed or irritable: 1 = Several days Feeling afraid as if something awful might happen: 0 = Not at all Total RUMA-7 score (0-4 normal; 5-9 mild; 10-14 moderate; 15-21 severe): 4 Source: Developed by Drs. Madi Davalos, Carine Yarbrough, Vladimir Trejo and colleagues, with an educational ronald from [employer]. RUMA-7 Assessment Billing RUMA-7 Assessment Tool: RUMA-7 Assessment 32318 Review of Systems Const Denies body aches, Denies chills, Denies excessive sweating, Denies fatigue, Denies fever(s) and Denies headache(s) Eyes Denies blurry vision ENT Denies dysphagia, Denies vertigo, Denies dizziness, Denies headache(s), Denies hearing loss and Denies tinnitus Card Denies chest pain, Denies chest pain with activity, Denies syncope, Denies irregular heart rhythm and Denies dyspnea Resp Denies chest congestion, Denies cough, Denies hemoptysis, Denies dyspnea and Denies wheezing GI Denies abdominal pain, Denies melena, Denies hematochezia, Denies coffee ground emesis, Denies dysphagia, Denies diarrhea, Denies nausea and Denies vomiting Denies urinary frequency, Denies dysuria, Denies urinary hesitancy and Denies urinary urgency Musc Denies arthralgias, Denies limited range of motion, Denies muscle cramps and Denies muscle weakness Skin/Breast Denies rash and Denies skin ulcer Neuro Denies Abnormal speech present, Denies confusion, Denies vertigo, Denies dizziness, Denies syncope, Denies headache(s), Denies memory loss and Denies seizure-like activity Psych Denies anxiety, Denies confusion, Denies depression, Denies memory loss, Denies panic attacks and Denies paranoia Endo Denies excessive sweating, Denies fatigue, Denies flushing, Denies polydipsia and Denies polyuria Aller/Immun Denies wheezing Physical exam (Primary Care) Vital Signs: Last Vital Signs Pulse 75 03/06/24 09:49 BP 90/68 03/06/24 09:49 Pulse Ox 98 03/06/24 09:49 Oxygen Delivery Method Room Air 03/06/24 09:49 BMI result Body Mass Index 30.6 Tobacco/Smoking Status: Tobacco use Status Tobacco use date assessed 06/29/23 03/06/24 09:49 Patient Tobacco Use Status Never used Tobacco 03/06/24 09:49 e-Cigarette/Vaping Use Never Used 03/06/24 09:49 PHQ-9: PHQ-9 Score PHQ-9: Total score 9 03/06/24 09:49 Depression Screening Interpretation: Positive Depression Screening Follow-up: Existing condition Thrive Assessment: Date of Thrive Assessment Date Thrive assessed 03/06/24 03/06/24 09:49 Currently or been in a relationship where the following occur: No concerns reported Const General: cooperative, comfortable, no acute distress, alert and awake; No confusion Orientation/consciousness: oriented to person, oriented to place, patient oriented x3 and No confusion HENMT Head: Yes normocephalic Ears: external ears normal and TM's normal bilaterally Face and sinus: No sinus tenderness Mouth: Normal oral and palatal mucosa present and tongue normal Teeth and gingiva: dentition normal and gingiva normal Throat: Yes posterior oropharynx normal, Yes tonsils normal and Yes uvula midline Eyes Conjunctivae: conjunctivae normal Sclerae: sclerae normal Pupils: Equal, round and reactive pupils present EOM: EOMs intact bilaterally Direct Ophthalmoscopy: No no photophobia Neck Neck: Yes no lymphadenopathy, No tender and Yes no JVD Thyroid: Thyroid normal Carotids: no bruits Chest Chest palpation & inspection: no tenderness Resp Effort & Inspection: normal respiratory effort, no audible wheezes, not labored and no stridor Auscultation: no crackles, no rales, no rhonchi and no wheezes Cardio Jugular venous distension: no JVD Rate: regular rate, not bradycardic and not tachycardic Rhythm: regular rhythm Bruits: no carotid bruits Peripheral pulses: Peripheral pulses 2+ throughout GI Inspection: Yes normal to inspection, No abdominal wall ecchymosis and No visible herniation Palpation (GI): Soft to palpation, nontender, no guarding, not rigid and No hepatosplenomegaly present Auscultation: normoactive bowel sounds Abdomen image: 2 1. NOTABLE MASS NOTED IN THE UMBILICUS General: Yes no CVA tenderness Back/Spine/Pelvis Back: no CVA tenderness and No back tenderness Cervical Spine: cervical ROM normal Thoracic/Lumbar Spine: thoracic and lumbar spine normal to inspection, straight leg raise negative bilaterally, No thoraco-lumbar ROM limited and No lumbar spinal tenderness Skin Lesions: no lesions Rashes: no rashes Wounds: no wounds Neuro General: oriented to person, oriented to place, patient oriented x3, CN's II-XI intact bilaterally and No confusion Cranial nerves: Yes Equal, round and reactive pupils present and Yes Normal accommodation reflex present Cognition (Neuro): normal cognition Speech: No Abnormal speech present Gait exam (Neuro): Normal gait present Motor exam (neuro): 5/5 motor strength present throughout Extrem Right upper extremity: full ROM; no cyanosis Left upper extremity: full ROM; no cyanosis Right lower extremity: no edema Left lower extremity: no edema Psych Appearance: grossly normal Mental Status: mental status grossly normal Affect: normal affect Attitude: cooperative Thought process: Normal thought process present Assessment and Plan Assessment & Plan (1) Physical exam: Code(s): Z00.00 - Encounter for general adult medical examination without abnormal findings (2) Umbilical hernia: Code(s): K42.9 - Umbilical hernia without obstruction or gangrene Qualifiers: Obstruction and gangrene presence: without obstruction or gangrene Q ualified Code(s): K42.9 - Umbilical hernia without obstruction or gangrene Plan: As per HPI patient has been having recent pain around her umbilicus and some vomiting episodes. Has had umbilical hernia over last 8 years since her . She is interested in seeing a general surgeon for possible fix of her umbilical hernia (3) MDD (major depressive disorder), recurrent episode, moderate: Code(s): F33.1 - Major depressive disorder, recurrent, moderate Plan: Patient reports her depression has been fairly stable. Does use fluoxetine and trazodone daily. (4) RUMA (generalized anxiety disorder): Code(s): F41.1 - Generalized anxiety disorder Plan: Patient's RUMA-7 score positive for anxiety which has been existing condition for her. Patient reports her anxiety is fairly well managed with current mental health medication, does use lorazepam on a limited p.r.n. basis for panic. (5) Congestive heart failure: Code(s): I50.9 - Heart failure, unspecified Qualifiers: Heart failure type: other Qualified Code(s): I50.9 - Heart failure, unspecified Plan: Has been born with tetralogy of Fallot, followed by a [place] sports anchor. No overt signs of heart failure (6) Macrocytic anemia: Code(s): D53.9 - Nutritional anemia, unspecified Plan: Has chronic macrocytic anemia, most recent B12 folate levels have been stable. Has followed up with Hematology whom believes her macrocytosis is genetic. Will continue to follow on annual basis. Orders: Referrals 2 General Surgery Referral K42.9 - Umbilical hernia without obstruction or gangrene Medications: Refilled 2 dicloxacillin 500 mg PO Q6H 7 days 28 caps 0RF L01.00 - Impetigo, unspecified Coding Level of Care Code Est Pt Prev Care 18-39y(25228) Diagnoses Physical exam Z00.00 Umbilical hernia without obstruction and without gangrene K42.9 Obstruction and gangrene presence: without obstruction or gangrene MDD (major depressive disorder), recurrent episode, moderate F33.1 RUMA (generalized anxiety disorder) F41.1 Other congestive heart failure I50.9 Heart failure type: other Macrocytic anemia D53.9 Additional Codes RUMA-7 Assessment Billing - RUMA-7 Assessment Tool: RUMA-7 Assessment 83036 ([id number])
[2024-03-06 09:49] VITALS: BP 90/68; PULSE 75; O2SAT 98; BMI 30.6
== END 2024-03-06 10:41 | disposition home or self-care (01) ==
PROVIDERS: PCP Physician Assistant; Visit Provider Physician Assistant
DX: Z00.00 Encounter for general adult medical examination without abnormal findings (principal); F33.1 Major depressive disorder, recurrent, moderate; I50.9 Heart failure, unspecified; K42.9 Umbilical hernia without obstruction or gangrene; F41.1 Generalized anxiety disorder; D53.9 Nutritional anemia, unspecified

== ENCOUNTER 2024-03-06 09:38 | Outpatient (REF) | payer MEDICARE, MEDICAID, SELFPAY ==
[2024-03-06 11:33] LABS: Hematocrit 35.1 % (37.0-47.0); Hemoglobin 12.5 g/dl (12.0-16.0); Mean Corpuscular HGB Conc 35.6 g/dl (31.0-35.0); Mean Corpuscular Hemoglobin 37.9 pg (27.0-33.0); Mean Corpuscular Volume 106.4 fL (80.0-98.0); Mean Platelet Volume 9.7 fL (9.4-12.3); Platelet Count 314 X10*3/uL (160-400); Red Cell Distribution Width 11.9 % (11.0-16.0); White Blood Count 6.3 X10*3/uL (4.8-10.8)
[2024-03-06 12:17] LABS: Alanine Aminotransferase 66 U/L (0-31); Albumin Level 4.2 g/dL (3.5-5.0); Alkaline Phosphatase 57 U/L (39-117); Anion Gap 13 (12-20); Aspartate Amino Transferase 31 U/L (5-31); Bilirubin Total 0.4 mg/dL (0.0-1.0); Blood Urea Nitrogen 18 mg/dL (9-16); Calcium 9.2 mg/dL (8.4-10.2); Carbon Dioxide 32 mmol/L (22-29); Chloride 99 mmol/L (96-108); Estimated Glomerular Filt Rate 58; Glucose Fasting 89 mg/dL (60-99); Potassium 3.7 mmol/L (3.3-5.1); Sodium 140 mmol/L (135-145); Total Protein 7.5 g/dL (6.5-8.0)
[2024-03-06 12:42] LABS: Folate 7.7 ng/mL (> or = 4.0); Vitamin B12 578 pg/mL (200-900)
== END 2024-03-06 09:39 | disposition home or self-care (01) ==
LOC: HO.LAB 09:38
PROVIDERS: PCP Physician Assistant; Visit Provider Physician Assistant
DX: Z00.01 Encounter for general adult medical examination with abnormal findings (principal); K42.9 Umbilical hernia without obstruction or gangrene; F33.1 Major depressive disorder, recurrent, moderate; F41.1 Generalized anxiety disorder; I50.9 Heart failure, unspecified; D53.9 Nutritional anemia, unspecified; E53.8 Deficiency of other specified B group vitamins; Z13.1 Encounter for screening for diabetes mellitus
CPT/HCPCS: 36415; 80053; 82607; 82746; 85027; 96127

== ENCOUNTER 2024-03-22 09:30 | Outpatient (AMB) | payer MEDICARE, MEDICAID, SELFPAY ==
--- NOTE | 2024-03-22 09:31 | MHC.OFFVIS ---
Vital Signs 03/22/24 09:39 Height 4 ft 11 in Weight 151 lb 10.848 oz BMI 30.6 Pulse 72 Intake Visit Reasons: umbilical hernia Intake Note: Patient is seen in office for evaluation and treatment of an umbilical hernia. Pt c/o: feels a lump on the belly button for about 9 yrs since childbirth, currently is painful, had couple episodes of vomit, denies constipation or diarrhea, no prior imaging ref. Akira Inside Sales Assistant Required: No Accompanied by: Self / Same As Patient Allergies banana [BANANA] Allergy (Intermediate, Verified 03/06/24 09:59) ABD PAIN Medication List - Last Reconciled 03/22/24 by Hemant Kay MD acetaminophen (Tylenol Extra Strength) 1,000 mg (2 x 500 mg) PO QID PRN calcium carbonate (Oyster Shell Calcium) 500 mg PO DAILY cholecalciferol (vitamin D3) 50 mcg PO DAILY 90 days dicloxacillin 500 mg PO Q6H 7 days fluoxetine 40 mg PO DAILY 90 days furosemide (Lasix) 20 mg PO DAILY 90 days ibuprofen 800 mg PO TID PRN meloxicam 15 mg PO DAILY omeprazole 40 mg PO DAILY 90 days trazodone 50 mg PO BEDTIME 90 days HPI Comments Details: 33-year-old female patient presenting with complaints of umbilical pain which seems to be increasing in severity. She 1st noted the lump during her and over time has increased in size. She has had several episodes of increased pain with a twisting sensation related to this hernia. This pain was associated with nausea and vomiting. She denies difficulty having a bowel movement. She denies a previous history of surgery around the umbilicus. [facility] Medical History COVID-19 Amenorrhea Hypocalcemia Thoracic back pain Pulmonic valve regurgitation Depression Congestive heart failure Encounter for Medicare annual wellness exam Macromastia Murmur Back pain Neck pain Surgical History Tetralogy of Fallot s/p repair Family History Father No problems noted. Mother Asthma Social History Housing: House Alcohol intake: current Alcohol intake frequency: holidays/special occasions only Patient Tobacco Use Status: Never used Tobacco e-Cigarette/Vaping Use: Never Used Second Hand Smoke Exposure: No service: No Current occupational status: unemployed Current occupational exposures/hazards: No Cognitive needs: No Hearing needs: No Vision needs: Yes Female Reproductive History Menstrual Age of Menarche: 14 Review of Systems Const All systems reviewed & are unremarkable except as noted in HPI and below Card Reports dyspnea on exertion Resp Reports dyspnea on exertion Physical Exam Const General: cooperative and no acute distress Nutritional Appearance: well nourished Orientation/consciousness: patient oriented x3 Limitations: no limitations HEENT Head: Yes normocephalic and Yes atraumatic Ears: hearing grossly normal bilaterally Resp Effort & Inspection: normal respiratory effort, no audible wheezes, no cough and no respiratory distress Cardio Jugular venous distension: no JVD GI Inspection: Yes normal to inspection Palpation (GI): Soft to palpation, nontender, no guarding, not rigid and Hernia present umbilical (2 cm defect, reducible) Skin Other: Warm, dry, no rash Neuro General: patient oriented x3 Extrem General: Yes no clubbing, cyanosis or edema Assessment & Plan Assessment & Plan (1) Umbilical hernia: Code(s): K42.9 - Umbilical hernia without obstruction or gangrene Category: Medical Qualifiers: Obstruction and gangrene presence: without obstruction or gangrene Qualified Code(s): K42.9 - Umbilical hernia without obstruction or gangrene Plan 33-year-old female patient presenting with a reducible umbilical hernia which is now becoming more symptomatic, causing pain, nausea and vomiting. On examination she does indeed have a reducible umbilical hernia with a 2 cm defect. I recommended repair of this umbilical hernia with mesh. After discussion of the procedure, risks and alternatives, she consents to the surgery. She will be scheduled as a short-stay surgery. Coding Level of Care Code New Pt Level 4 (50298) Diagnoses Umbilical hernia without obstruction and without gangrene K42.9 Obstruction and gangrene presence: without obstruction or gangrene
[2024-03-22 09:39] VITALS: PULSE 72; BMI 30.6
== END 2024-03-22 10:04 | disposition home or self-care (01) ==
PROVIDERS: PCP Physician Assistant; Visit Provider Surgery
DX: K42.9 Umbilical hernia without obstruction or gangrene (principal)
CPT/HCPCS: 99204

== ENCOUNTER → 2024-03-22 09:30 | Outpatient (BNVA) | payer MEDICARE, MEDICAID, SELFPAY | PROVIDERS: PCP Physician Assistant; Visit Provider Surgery | DX: K42.9 Umbilical hernia without obstruction or gangrene (principal) | CPT/HCPCS: 99202 ==

== ENCOUNTER 2024-06-19 13:38 | Outpatient (AMB) | payer MEDICARE, MEDICAID, SELFPAY ==
--- NOTE | 2024-06-19 13:43 | MHC.PC.OV ---
Vital Signs 06/19/24 13:45 Height 4 ft 11 in Weight 149 lb BMI 30.1 BP 110/60 Blood Pressure Location Lt brachial Position Sitting Pulse 81 Pulse Source Pulse Oximeter Pulse Oximetry (%) 97 Oxygen Delivery Method Room Air Intake Visit Reasons: Cough Intake Note: Patient is here to follow up on Cough. Biostatistics Professor Required: No Vulcan Crewmember: Not Required per policy Accompanied by: Self / Same As Patient Allergies banana [BANANA] Allergy (Intermediate, Verified 06/19/24 14:08) ABD PAIN Medication List - Last Reconciled 06/19/24 by Richy Haney MD acetaminophen (Tylenol Extra Strength) 1,000 mg (2 x 500 mg) PO QID PRN calcium carbonate (Oyster Shell Calcium) 500 mg PO DAILY cholecalciferol (vitamin D3) 50 mcg PO DAILY 90 days dicloxacillin 500 mg PO Q6H 7 days fluoxetine 40 mg PO DAILY 90 days furosemide (Lasix) 20 mg PO DAILY 90 days ibuprofen 800 mg PO TID PRN meloxicam 15 mg PO DAILY omeprazole 40 mg PO DAILY 90 days trazodone 50 mg PO BEDTIME 90 days Tobacco use date assessed: 06/19/24 Dental Screening Dental Screen Date: 06/19/24 Did you have a dental visit in the last 12 months?: No Did you have a dental problem in the last 6 months where you did not have access to dental care?: No Was dental information given to patient?: No HPI Cough HPI Details Patient presents for a sick visit. Reporting symptoms of sinus congestion, sore throat and difficulty swallowing. Low-grade fever. No family member is sick. No recent travel. Patient reports symptoms of malaise and fatigue. [facility] Medical History COVID-19 Amenorrhea Hypocalcemia Thoracic back pain Pulmonic valve regurgitation Depression Congestive heart failure Encounter for Medicare annual wellness exam Macromastia Murmur Back pain Neck pain Surgical History Tetralogy of Fallot s/p repair Family History Father No problems noted. Mother Asthma Social History Housing: House Alcohol intake: current Alcohol intake frequency: holidays/special occasions only Patient Tobacco Use Status: Never used Tobacco e-Cigarette/Vaping Use: Never Used Second Hand Smoke Exposure: No service: No Current occupational status: unemployed Current occupational exposures/hazards: No Cognitive needs: No Hearing needs: No Vision needs: Yes Female Reproductive History Menstrual Age of Menarche: 14 Questionnaire PHQ-9 Over the last 2 weeks, how often have you been bothered by any of the following problems? 1. Little interest or pleasure in doing things: not at all 2. Feeling down, depressed, or hopeless: not at all 3. Trouble falling or staying asleep, or sleeping too much: not at all 4. Feeling tired or having little energy: not at all 5. Poor appetite or overeating: not at all 6. Feeling bad about yourself - or that you are a failure or have let yourself or your family down: not at all 7. Trouble concentrating on things, such as reading the newspaper or watching television: not at all 8. Moving or speaking so slowly that other people could have noticed. Or the opposite - being so fidgety or restless that you have been moving around a lot more than usual: not at all 9. Thoughts that you would be better off or of hurting yourself in some way: not at all Total score: 0 Depression Screening Interpretation: Negative Depression Screening Done: Yes Source: Developed by Drs. Madi Davalos, Carine Yarbrough, Vladimir Trejo and colleagues, with an educational ronald from [employer]. Thrive Questionnaire Date Thrive assessed: 06/19/24 I am a: Patient What is your living situation today?: I have a steady place to live Within the past 12 months, did the food you bought not last and you didn't have the money to get more?: Never true Within the past 12 months, did you worry whether your food would run out before you got money to buy more?: Never true Do you have trouble paying for medicines?: No Do you have trouble getting transportation to medical appointments?: No Do you have trouble paying your heating and electricity bill?: No Do you have trouble taking care of your child, family member or friend?: No Do you have trouble with day-to-day activities such as bathing, preparing meals, shopping, managing finances, etc.?: No Are you currently unemployed and looking for a job?: No Are you interested in more education?: No Please select the resources that you would like help with: None Currently or been in a relationship where the following occur: No concerns reported THRIVE Score: 0 AUDIT C Alcohol Use Questionnaire (AUDIT-C) 1. How often do you have a drink containing alcohol?: 2-4 times a month 2. How many drinks containing alcohol do you have on a typical day when you are drinking?: 3 or 4 3. How often do you have six or more drinks on one occasion?: Never Total Score: 3 RUMA-7 AMB Questionnaire RUMA-7 Date RUMA - 7 assessed: 06/19/24 Feeling nervous, anxious, or on edge: 0 = Not at all Not being able to stop or control worryin = Not at all Worrying too much about different things: 0 = Not at all Trouble relaxin = Not at all Being so restless that it is hard to sit still: 0 = Not at all Becoming easily annoyed or irritable: 0 = Not at all Feeling afraid as if something awful might happen: 0 = Not at all Total RUMA-7 score (0-4 normal; 5-9 mild; 10-14 moderate; 15-21 severe): 0 Source: Developed by Drs. Madi Davalos, Carine Yarbrough, Vladimir Trejo and colleagues, with an educational ronald from [employer]. Physical exam (Primary Care) Vital Signs: Last Vital Signs Pulse 81 06/19/24 13:45 BP 110/60 06/19/24 13:45 Pulse Ox 97 06/19/24 13:45 Oxygen Delivery Method Room Air 06/19/24 13:45 BMI result Body Mass Index 30.1 Tobacco/Smoking Status: Tobacco use Status Tobacco use date assessed 06/19/24 06/19/24 13:50 Patient Tobacco Use Status Never used Tobacco 06/19/24 13:50 e-Cigarette/Vaping Use Never Used 06/19/24 13:50 PHQ-9: PHQ-9 Score PHQ-9: Total score 0 06/19/24 13:50 Depression Screening Interpretation: Negative Thrive Assessment: Date of Thrive Assessment Date Thrive assessed 06/19/24 06/19/24 13:50 Currently or been in a relationship where the following occur: No concerns reported Const General: cooperative and healthy appearing Nutritional Appearance: well nourished Orientation/consciousness: patient oriented x3 Limitations: no limitations HENMT Head: Yes normal to inspection Eyes General: appearance normal, both eyes and all related structures Neck Neck: Yes normal visual inspection Chest Chest palpation & inspection: normal palpation of entire chest wall Resp Effort & Inspection: normal respiratory effort Cardio Other: Heart: S1-S2, systolic murmur. Neuro General: patient oriented x3 Coding Level of Care Code Est Pt Level 3 (59679) Complex EM visit Add On G2211 Diagnoses Upper respiratory tract infection J06.9 Assessment & Plan Assessment & Plan (1) Upper respiratory tract infection: Code(s): J06.9 - Acute upper respiratory infection, unspecified Plan: Antibiotics ordered. Increase fluid intake. Tylenol for aches and pains. If symptoms worsen, follow-up here for a recheck.
[2024-06-19 13:45] VITALS: BP 110/60; PULSE 81; O2SAT 97; BMI 30.1
== END 2024-06-19 14:04 | disposition home or self-care (01) ==
PROVIDERS: PCP Physician Assistant; Visit Provider Internal Medicine
DX: J06.9 Acute upper respiratory infection, unspecified (principal)

== ENCOUNTER → 2024-06-19 13:38 | Outpatient (BNVA) | payer MEDICARE, MEDICAID, SELFPAY | PROVIDERS: PCP Physician Assistant; Visit Provider Internal Medicine | DX: J06.9 Acute upper respiratory infection, unspecified (principal) | CPT/HCPCS: 96127; 99212 ==

== ENCOUNTER 2024-07-10 10:25 | Day surgery (SDC) | payer MEDICAID, SELFPAY ==
[2024-07-03 13:23] VITALS: BP 100/59; PULSE 72; RESP 16; O2SAT 98; BMI 30.7
--- NOTE | 2024-07-03 13:40 | HO.ANESPROP2 ---
Documented by User: Nichole Vogt NP 07/08/24 15:18 HPI - Anesthesia Eval Consult details Narrative: 33yo F for Hernia Umbilical Reducible with mesh No recent illness No CP/SOB with regular household activities Tetrology of fallot complete repair as infant. Follows [facility] cardiology - optimized to proceed with surgery Severe pulmonic regurg Case reviewed with Dr Hooks GERD: Controlled with ppi PMFSH Active Problems Active Problems: All Active Problems Umbilical hernia (Acute) Screening for diabetes mellitus (DM) (Acute) control counseling (Acute) Women's annual routine gynecological examination (Acute) History of CHF (congestive heart failure) (Acute) Cervical cancer screening (Acute) Cervical radiculopathy (Acute) Right shoulder tendinitis (Acute) RUMA (generalized anxiety disorder) (Acute) Arm paresthesia, right (Acute) Wrist pain (Acute) MDD (major depressive disorder), recurrent episode, moderate (Acute) Macrocytic anemia (Chronic) GERD (gastroesophageal reflux disease) (Acute) Encounter for Medicare annual wellness exam (Acute) Physical exam (Acute) Neck pain (Acute) Congestive heart failure (Acute) Encounter for Medicare annual wellness exam (Acute) Past Medical History Medical History Anemia GERD (gastroesophageal reflux disease) Anxiety URI, acute Habitual snoring SOB (shortness of breath) COVID-19 Amenorrhea Hypocalcemia Thoracic back pain Pulmonic valve regurgitation Depression Congestive heart failure Encounter for Medicare annual wellness exam Macromastia Murmur Back pain Neck pain Family History Family History Father No problems noted. Mother Asthma Family history of problems with anesthesia: No Surgical History Surgical History H/O wisdom tooth extraction History of bone marrow biopsy Hx of right knee surgery History of esophagogastroduodenoscopy (EGD) H/O colonoscopy Tetralogy of Fallot s/p repair History of Problems with Anesthesia: No (Wakes tearful) Social History Social History Housing: House Are you a primary long term care administrator to a significant other at home: Yes Do you presently have visiting nurse or other home services: No Alcohol intake: current Alcohol intake frequency: a few times a month Patient Tobacco Use Status: Never used Tobacco e-Cigarette/Vaping Use: Never Used Second Hand Smoke Exposure: No Use of substances other than those prescribed or required for medical reasons: No Have you been hit, kicked, punched, or otherwise hurt by someone within the past year? If so, by whom?: No Are you DNR?: No Advance Directives: No Advance Directives Information Provided: Yes Advance Directives on File: No Recently lost weight without trying: No Eating poorly because of decreased appetite: No Nutrition Risks: No Nutritional Risk Patient : No : No Poor oral hygiene: Yes (bottom bridge in the front) service: No Current occupational status: unemployed Current occupational exposures/hazards: No Cognitive needs: No Hearing needs: No Vision needs: Yes Meds Allergies Allergy/AdvReac Type Severity Reaction Status Date / Time banana [BANANA] Allergy Intermediate ABD PAIN Verified 06/19/24 14:08 Home Medications ?Medication ?Instructions ?Recorded ?Confirmed ?Last Taken ?Type ibuprofen 800 mg tablet 800 mg PO TID PRN Pain 01/25/24 07/03/24 07/02/24 History Exam Height,Weight and Vital Signs: Height 4 ft 11 in Weight 68.946 kg Last Vital Signs Pulse 72 07/03/24 13:23 Resp 16 07/03/24 13:23 BP 100/59 L 07/03/24 13:23 Pulse Ox 98 07/03/24 13:23 O2 Del Method Room Air 07/03/24 13:23 Pertinent Lab Results Pertinent Lab Results: Laboratory Tests 03/06/24 06/26/24 10:42 11:37 WBC 5.1 Hgb 11.6 L Hct 32.8 L Plt Count 274 Sodium 140 Potassium 3.7 Chloride 99 Carbon Dioxide 32 H BUN 18 H Creatinine 1.10 Narrative Narrative: MRI Cardiac W+W/O Contrast ? 15:09:17 IMPRESSION: 1. History of Tetralogy of Fallot. Technically difficult study due to patient inability to adequately breath-hold. 2. The left ventricular chamber size was normal. LV wall thickness is normal. Overall left ventricular systolic function is normal. Volumetric LVEF 61%. Normal LV wall motion. 3. The RV chamber was moderately dilated (RV end-diastolic volume 188 mL, RV end-diastolic volume index 121 mL/m?). Right ventricular systolic function is mildly reduced. Quantitative RVEF 46%. The basal RV free wall is hypokinetic. 4. The right atrium is mildly dilated. 5. The pulmonic valve is poorly visualized. By phase-contrast flow analysis of the main pulmonary artery, there is severe pulmonic regurgitation (regurgitant volume 49 mL per beat, regurgitant fraction 46%). 6. Aortic phase contrast flow analysis is inaccurate due to technically difficult image acquisition (inadequate breath-hold). 7. Grossly normal LV rest perfusion. No MRI evidence of myocardial infarction, infiltration, or fibrosis. Comparison is made to the study of 28 June 2013. Right ventricular end-diastolic volume index is higher now (109 mL/m? on prior). Pulmonic regurgitant fraction is similar on the two studies (50% on prior). RVEF lower now (55% on prior). WSN: [id number] Ordering Physician: Velvet Morse ? Signed By: Gurdeep Herron MD ECGECG 12-Lead ? 10:19:22 Ventricular Rate: 71 BPM Atrial Rate: 71 BPM P-R Interval: 116 ms QRS Duration: 142 ms Q-T Interval: 442 ms QTC Calculation(Bazett): 480 ms P Westminster: 46 degrees R [place]: 88 degrees T Westminster: 67 degrees Normal sinus rhythm Right bundle branch block Baseline artifact Abnormal ECG When compared with ECG of 13-Aug-2022 10:18, No significant change was found Confirmed by Regis Prince ([id number]) on 05/28/2024 12:51:27 PM Alpha: Regis Prince ? Signed By: Regis Prince MD ? ECG 12-Lead ? 10:19:22 Please click on pdf link to open report ? Signed By: Regis Prince MD EchoEchocardiogram - Complete ? 11:15:27 Summary The left ventricular size is normal. Left ventricular wall thickness is normal. The LV systolic function is normal . The left ventricular ejection fraction is 55-60 %. No obvious wall motion abnormalities seen on limited views. The apical views are foreshortened. Normal diastolic function. The right ventricle is moderately to severely dilated. Right ventricular systolic function appears preserved. The pulmonic valve is poorly visualized. The peak and mean pulmonic gradients are 16 and 8 mm Hg. There is severe pulmonic regurgitation. Comparison Comparison is made to the study of May 12, 2021. There is no definite interval change. Signature ? Signed By: Vanessa CHURCHILL, Fahad Monzon Airway Mallampati Class: II TM Dist: >3cm Neck ROM: Full Loose/Missing/Broken Teeth: No Heart: RRR + M Lungs: CTAB Assessment and Plan Assessment Anesthesia Assessment: Anesthesia Plan Discussed and PAT Visit Final Anesthetic Review Family History of Problems with Anesthesia: No History of Problems with Anesthesia: No (Wakes tearful) Documented by User: Mellisa Ghosh MD 07/10/24 11:24 HPI - Anesthesia Eval Consult details Narrative: 33yo F for Hernia Umbilical Reducible with mesh No recent illness No CP/SOB with regular household activities Tetrology of fallot complete repair as . Follows [facility] cardiology - optimized to proceed awith surgery Severe pulmonic regurg Case reviewed with Dr Hooks GERD: [facility] Past Medical History Medical History Anemia GERD (gastroesophageal reflux disease) Anxiety URI, acute Habitual snoring SOB (shortness of breath) COVID-19 Amenorrhea Hypocalcemia Thoracic back pain Pulmonic valve regurgitation Depression Congestive heart failure Encounter for Medicare annual wellness exam Macromastia Murmur Back pain Neck pain Family History Family History Father No problems noted. Mother Asthma Surgical History Surgical History H/O wisdom tooth extraction History of bone marrow biopsy Hx of right knee surgery History of esophagogastroduodenoscopy (EGD) H/O colonoscopy Tetralogy of Fallot s/p repair Social History Social History Housing: House Are you a primary long term care administrator to a significant other at home: Yes Do you presently have visiting nurse or other home services: No Alcohol intake: current Alcohol intake frequency: a few times a month Patient Tobacco Use Status: Never used Tobacco e-Cigarette/Vaping Use: Never Used Second Hand Smoke Exposure: No Use of substances other than those prescribed or required for medical reasons: No Have you been hit, kicked, punched, or otherwise hurt by someone within the past year? If so, by whom?: No Are you DNR?: No Advance Directives: No Advance Directives Information Provided: Yes Advance Directives on File: No Recently lost weight without trying: No Eating poorly because of decreased appetite: No Nutrition Risks: No Nutritional Risk Patient : No : No Poor oral hygiene: Yes (bottom bridge in the front) service: No Current occupational status: unemployed Current occupational exposures/hazards: No Cognitive needs: No Hearing needs: No Vision needs: Yes Meds Allergies Allergy/AdvReac Type Severity Reaction Status Date / Time banana [BANANA] Allergy Intermediate ABD PAIN Verified 06/19/24 14:08 Home Medications ?Medication ?Instructions ?Recorded ?Confirmed ?Last Taken ?Type ibuprofen 800 mg tablet 800 mg PO TID PRN Pain 01/25/24 07/03/24 07/02/24 History Assessment and Plan Final Anesthetic Review ASA Class: III Final Preanesthetic Review: Meds/Allgs Chart Reviewed, Consent Obtained/Reviewed and Anes Risks/Benef Reviewed Patient Risk: Intermediate Procedure Risk: Low Anesthetic Plan Anesthetic Plan: GA Disposition: Standard PACU
[2024-07-10] VITALS (11 sets, daily range): BP systolic 96–126; BP diastolic 46–109; PULSE 76–88; RESP 14–20; TEMP 36.6; O2SAT 92–99
[2024-07-10 10:50] LABS: UPreg QC Valid YES; Urine Pregnancy NEGATIVE (NEGATIVE)
[2024-07-10] MEDS: Lactated Ringers 1,000 ML 100 ML IVCONT (10:52)
--- NOTE | 2024-07-10 11:23 | MHC.SHP ---
Pre-Procedural Eval Section A - 24 Hr Update-Section A only Date of Service: 07/10/24 The patient is an INPATIENT: No Changes since office visit: Yes Patient answered all questions; No Cold of Flu in the past 2 weeks, No New Medical Problems and No Changes in Medication The patient has been examined within 24 hours of the surgical procedure. The History & Physical has been completed within 30 days and I have reviewed it.: No Section B - Complete if H&P > 30 days Chief Complaint: Umbilical hernia without obstruction or gangrene Details of Present Illness: No change in symptoms since her prior visit. Relevant Social History: None Present Medications: see Short Stay Collaborative assessment Medical History: Significant History (Tetralogy of Fallot surgery) History of Previous Operations: No relevant previous surgery Allergies: Allergies Allergy/AdvReac Type Severity Reaction Status Date / Time banana [BANANA] Allergy Intermediate ABD PAIN Verified 06/19/24 14:08 Review of Systems Sugical H&P ROS: Negative: Constitution, Cardiovascular, Respiratory, Allergic/Immunologic, Gastrointestinal, Genitourinary, Musculoskeletal and Integumentary Exam Surgical H&P Exam: Normal: HEENT, Normal: Heart, Normal: Lungs, Normal: Extremities, Normal: Abdomen and Normal: Skin Plan Diagnosis/Plan: Unchanged I have reviewed the history and physical and performed a pertinent physical examination on my patient. No changes have occurred unless specified. Time Spent With Patient Time: Total time managing care of this patient today ____ minutes.
--- OUTSIDE RECORDS SUMMARY | 2024-07-10 12:32 | XMS_ITS | Encounter Summary ---
Author Organization [facility] Address [address] [place] [id number] Phone Care Team Providers Care Critical Care Specialist Name Role Phone Elva Reilly MD Primary Care Provider [phone] Encounter Details Date Type Department Care Team (Late st Contact Info) Description 08/20/2013 Documentation [facility] [place] Family Medicine [address] [place] [address] Family Medicine, Physician [address], [place] [phone] Social History Tobacco Use Types Packs/Day Years Used Date Smoking Tobacco: Never Assessed Comments Unknown Sex and Gender Information Value Date Recorded Sex Assigned at Not on file Legal Sex Female 4:51 PM EDT Gender Identity Not on file Sexual Orientation Not on file documented as of this encounter Plan of Treatment Not on file documented as of this encounter Visit Diagnoses Not on filedocumented in this encounter Care Teams Critical Care Specialist Relationship Specialty Start Date End Date Elva Reilly MD [address] [place] [address] [place] [address] PCP - General 01/20/17 08/24/22 documented as of this encounter
--- OUTSIDE RECORDS SUMMARY | 2024-07-10 12:32 | XMS_ITS | Encounter Summary ---
Author Organization [facility] Address [address] [place] [address] Phone Care Team Providers Care Janitorial Tech Name Role Phone Elva Reilly MD Primary Care Provider [phone] Encounter Details Date Type Department Care Team (Late st Contact Info) Description 01/26/2017 Conversion Encounter [facility] [place] [address] [place] [address] Social History Tobacco Use Types Packs/Day Years Used Date Smoking Tobacco: Never Comments:Never smoker Comments Unknown Sex and Gender Information Value Date Recorded Sex Assigned at Not on file Legal Sex Female 4:51 PM EDT Gender Identity Not on file Sexual Orientation Not on file documented as of this encounter Plan of Treatment Not on file documented as of this encounter Visit Diagnoses Not on filedocumented in this encounter Care Teams Janitorial Tech Relationship Specialty Start Date End Date Elva Reilly MD [address] [place] [address] PCP - General 01/20/17 08/24/22 documented as of this encounter
--- OUTSIDE RECORDS SUMMARY | 2024-07-10 12:32 | XMS_ITS | Encounter Summary ---
Author Organization [facility] Address [address] [place] [phone] Phone Care Team Providers Care Recreation Instructor Name Role Phone Elva Reilly MD Primary Care Provider [phone] Encounter Details Date Type Department Care Team (Late st Contact Info) Description 09/18/[address] [facility] [place] Family Medicine [address] [place] [address] Family Medicine, Physician [address], [place] [phone] Social History Tobacco Use Types Packs/Day Years [...] on filedocumented in this encounter Care Teams Recreation Instructor Relationship Specialty Start Date End Date Elva Reilly MD [address] [place] [address] [place] [address] PCP - General 01/20/17 08/24/22 documented as of this encounter
--- OUTSIDE RECORDS SUMMARY | 2024-07-10 12:32 | XMS_ITS | Encounter Summary ---
Author Organization [facility] Address [address] [place] [address] Phone Care Team Providers Care Channeling Machine Runner Name Role Phone Elva Reilly MD Primary Care Provider [phone] Encounter Details Date Type Department Care Team (Late st Contact Info) Description 10/06/2009 Documentation [facility] [place] Family Medicine [address] [place] [address] Family Medicine, Physician [address], [place] [phone] Social History Tobacco Use Types Packs/Day Years [...] on filedocumented in this encounter Care Teams Channeling Machine Runner Relationship Specialty Start Date End Date Elva Reilly MD [address] [place] [address] [place] [address] PCP - General 01/20/17 08/24/22 documented as of this encounter
--- OUTSIDE RECORDS SUMMARY | 2024-07-10 12:32 | XMS_ITS | Encounter Summary ---
Author Organization [facility] Address [address] [place] [phone] Phone Care Team Providers Care Physics Teacher Name Role Phone Elva Reilly MD Primary Care Provider Encounter Details Date Type Department Care Team (Late st Contact Info) Description 09/08/2010 Documentation [facility] [place] [address] [place] [address] Family Medicine, Physician [address], [place] [phone] Social History Tobacco Use Types Packs/Day Years [...] on filedocumented in this encounter Care Teams Physics Teacher Relationship Specialty Start Date End Date Elva Reilly MD [address] [place] [address] [place] [address] PCP - General 01/20/17 08/24/22 documented as of this encounter
--- OUTSIDE RECORDS SUMMARY | 2024-07-10 12:32 | XMS_ITS | Encounter Summary ---
Author Organization [facility] Address [address] [place] [address] Phone Care Team Providers Care Recovery Room Rn Name Role Phone Elva Reilly MD Primary Care Provider [phone] Encounter Details Date Type Department Care Team (Late st Contact Info) Description 06/14/2013 Documentation [facility] [place] Family Medicine [address] [place] [address] Family Medicine, Physician [address], [place] [phone] Social History Tobacco Use Types Packs/Day Years [...] on filedocumented in this encounter Care Teams Recovery Room Rn Relationship Specialty Start Date End Date Elva Reilly MD [address] [place] [address] [place] [address] PCP - General 01/20/17 08/24/22 documented as of this encounter
--- OUTSIDE RECORDS SUMMARY | 2024-07-10 12:32 | XMS_ITS | Clinical Summary ---
Author Organization [facility] Address [address] [place] [address] Phone Care Team Providers Care Hood Maker Name Role Phone Unavailable Primary Care Provider Unavailabl e Immunizations Name Administration Dates Next Due DTP 12/23/1996, 3,07/02/1992,03/26,01/13/1992 HPV, Quadrivalent 05/25/2007,01/22/2007,11/21/19 07 Hep B, ped/adol 10/09/1992,01/13/1992,1991 Hib (PRP-T) 03/04/1993, 3,03/26/1992,01/12 IPV 12/23/1996, 3,03/26/1992,01/12 Influenza Split 04/12/2013, 2,02/02/2011,02/16,03/08/1999,04/09/1998 Influenza, injectable, trivalent 009,03/19/2008,03/14/2007,03/30,04/26/2001,03/08/1999,04/09/1998 MMR 11/15/1995,03/29/1993 Meningococcal Conj (Menactra) MCV4P 11/20/2006 Pneumococcal Conjugate 12/09/1993 Pneumococcal Polysaccharide 11/20/2006, 1 Td (adult) (MBL), 2 Lf tetan us toxoid, PF, adsorbed 10/04/2004 Tdap 11/22/2007 Family History Relation Name Status Comments Mother Alive Mother: Migrain es Other Family history of Diabetes mellitus, No family history of Sudden /CT under 55, Family history of Asthma, No family history of Hyperlipidemia Sister Alive Sister: Alive a nd well Social History Tobacco Use Types Packs/Day Years Used Date Smoking Tobacco: Never Comments:Never smoker Comments Unknown Sex and Gender Information Value Date Recorded Sex Assigned at Not on file Legal Sex Female 4:51 PM EDT Gender Identity Not on file Sexual Orientation Not on file Last Filed Vital Signs Vital Sign Reading Time Taken Comments Blood Pressure 106/72 08/05/2013 12:00 AM EST Pulse 94 08/05/2013 12:00 AM EST Temperature 36.3 ??C (97.4 ??F) 07/31/2013 12:[address] Respiratory Rate - - Oxygen Saturation 97% 09/05/2010 12:00 AM EDT Inhaled Oxygen Concentration - - Weight 49.7 kg (109 lb 9.6 oz) 08/05/2013 12:00 AM EST Height 148.6 cm (4' 10.5 ) 07/31/2013 12:[address] Body Mass Index 22.52 07/31/2013 12:00 AM EST Plan of Treatment Health Maintenance Due Date Last Done Comments Varicella Vaccines (1 of 2 - 13+ 2-dose series) 11/11/2004 Consider Men B Vaccine (1 of 2 - Bexsero 2-dose series) 2007 DTaP,Tdap,and Td Vaccines (7 - Td or Tdap) 11/21/2017 11/22/2007, 10/04/2004, 12/23/1996, Additional history exists Influenza Vaccines (#1) 2024 04/12/20 13, 02/14/2012, 02/02/2011, Additional history exists COVID-19 Vaccine ( season) 2024 Hepatitis B Vaccines Completed 10/09/1992, 01/13/1992, 1991 HIB Vaccines Completed 03/04/1993, 06/13, 03/26/1992, Additional history exists MMR Vaccines Completed 11/15/1995, 03/29/1993 IPV Vaccines Completed 12/23/1996, 05/13, 03/26/1992, Additional history exists Meningococcal Vaccine Aged Out 11/20/2006 No sirena sana eligible based on patient's age to complete this topic Pneumococcal Vaccine Completed 11/20/2006, 04/26/2001, 12/09/1993 HPV Vaccines Completed 05/25/2007, 01/10, 11/20/2006 Hepatitis A Vaccines Aged Out No long er eligible based on patient's age to complete this topic Men B Vaccine Aged Out No longer elig ible based on patient's age to complete this topic Procedures * Due to [place] [employer] law, this organization might not be sharing sensitive test results. Procedure Name Priority Date/Time Associated Diagnosis Comments CHLAMYDIA AND GONORRHEA, AMPLIFIED Routine 08/01/2013 1:50 PM EST from Last 3 Months or Most Recently Relevant to Health Maintenance Results * Due to [place] Pre[employer] law, this organization might not be sharing sensitive test results. * Chlamydia and Gonorrhoea, Amplified (08/01/2013 1:50 PM EST) URINE CHLAMYDIA AMP PROBE NEGATIVE [facility] Comment: NO CHLAMYDIA TRACHOMATIS RNA DETECTED IN THIS PATIENT'S SAMPLE. (REFERENCE RANGE/NORMAL VALUE: NOT DETECTED) URINE GC AMP PROBE NEGATIVE [facility] Comment: NO NEISSERIA GONORRHOEAE RNA DETECTED IN THIS PATIENT'S SAMPLE. (REFERENCE RANGE/NORMAL VALUE: NOT DETECTED) NOTE: THIS TEST USES POCKET AND PULLEY MACHINE OPERATOR-MEDIATED AMPLIFICATION METHOD TO DETECT rRNA FROM C.TRACHOMATIS AND N.GONORRHOEAE. A NEGATIVE RESULT DOES NOT PRECLUDE INFECTION. THE APTIMA COMBO 2 ASSAY IS NOT INTENDED FOR THE EVALUATION OF SUSPECTED SEXUAL ABUSE OR FOR OTHER MEDICO LEGAL INDICATIONS. THERAPEUTIC FAILURE OR SUCCESS CANNOT BE DETERMINED WITH THE APTIMA COMBO 2 ASSAY SINCE NUCLEIC ACID MAY PERSIST FOLLOWING APPROPRIATE ANTIMICROBIAL THERAPY. IN THE CASE OF A NEGATIVE URINE RESULT, TESTING OF AN ENDOCERVICAL (FEMALE) OR URETHRAL (MALE) SPECIMEN IS RECOMMENDED IF THERE IS HIGH CLINICAL SUSPICION OF INFECTION. Testing performed or reported by [facility], a Service of [facility], [address] [place] [id number] Tyrsee Gaona, Formulation Technician 08/01/2013 1:50 PM EST Narrative [facility] - 08/01/2013 1:50 PM EST URINE CHLAMYDIA GC AMP PROBE us Elva Reilly MD LAB MICROBIOLOGY - GENERAL ORDER SARY Final Result [facility] [address] [place] [address], [place] from Last 3 Months or Most Recently Relevant to Health Maintenance
--- OUTSIDE RECORDS SUMMARY | 2024-07-10 12:32 | XMS_ITS | Encounter Summary ---
Author Organization [facility] Address [address] [place] [address] Phone Care Team Providers Care Mechanical Laboratory Technician Name Role Phone Elva Reilly MD Primary Care Provider [phone] Encounter Details Date Type Department Care Team (Late st Contact Info) Description 10/05/2009 Documentation [facility] [place] Family Medicine [address] [place] [address] Family Medicine, Physician [address] [place] [phone] Social History Tobacco Use Types Packs/Day Years [...] on filedocumented in this encounter Care Teams Mechanical Laboratory Technician Relationship Specialty Start Date End Date Elva Reilly MD [address] [place] [address] [place] [address] PCP - General 01/20/17 08/24/22 documented as of this encounter
--- OUTSIDE RECORDS SUMMARY | 2024-07-10 12:32 | XMS_ITS | Encounter Summary ---
Author Organization [facility] Address [address] [place] [address] Phone Care Team Providers Care Florist Manager Name Role Phone Elva Reilly MD Primary Care Provider [phone] Encounter Details Date Type Department Care Team (Late st Contact Info) Description 03/22/2010 Documentation [facility] [place] Family Medicine [address] [place] [address] Family Medicine, Physician [address] [place] [phone] Social History Tobacco Use Types Packs/Day Years [...] on filedocumented in this encounter Care Teams Florist Manager Relationship Specialty Start Date End Date Elva Reilly MD [address] [place] [address] [place] [address] PCP - General 01/20/17 08/24/22 documented as of this encounter
--- OUTSIDE RECORDS SUMMARY | 2024-07-10 12:32 | XMS_ITS | Encounter Summary ---
Author Organization [facility] Address [address] [place] [address] Phone Care Team Providers Care International Trade Teacher Name Role Phone Elva Reilly MD Primary Care Provider [phone] Encounter Details Date Type Department Care Team (Late st Contact Info) Description 08/21/2013 Documentation [facility] [place] [address] [place] [address] Family Medicine, Physician [address] [place] [phone] Social History Tobacco Use Types Packs/Day Years [...] on filedocumented in this encounter Care Teams International Trade Teacher Relationship Specialty Start Date End Date Elva Reilly MD [address] [place] [address] [place] [address] PCP - General 01/20/17 08/24/22 documented as of this encounter
--- OUTSIDE RECORDS SUMMARY | 2024-07-10 12:32 | XMS_ITS | Encounter Summary ---
Author Organization [facility] Address [address] [place] [address] Phone Care Team Providers Care Bellstaff Name Role Phone Elva Reilly MD Primary Care Provider [phone] Encounter Details Date Type Department Care Team (Late st Contact Info) Description 09/19/2011 Documentation [facility] [place] Family Medicine [address] [place] [address] Family Medicine, Physician [address] [place] [phone] Social History Tobacco Use Types Packs/Day Years [...] on filedocumented in this encounter Care Teams [place] Relationship Specialty Start Date End Date Elva Reilly MD [address] [place] [address] [place] [address] PCP - General 01/20/17 08/24/22 documented as of this encounter
--- NOTE | 2024-07-10 12:39 | W.PM.OPN ---
Operative Note Operative Note Date of Service: 07/10/24 Narrative: Preoperative diagnosis: Umbilical hernia, reducible Postoperative diagnosis: Same Procedure: Repair of umbilical hernia with mesh Surgeon: Hemant Kay MD Director Safety Council: Edilia Miles PA-C Anesthesia: General LMA Indications for procedure: 33-year-old female patient with a lump at her umbilicus which increases in size with lifting and reduces with light pressure. Workup revealed a fat containing umbilical hernia. She presents today for repair. Operative findings: 2 cm umbilical hernia, reducible Specimen: None Estimated blood loss: 2 mL Complications: None Procedure details: Patient was brought to the OR and placed in a supine position. After administering general anesthesia the patient's abdomen was prepped with ChloraPrep and draped in a sterile fashion. A surgical time-out was called and the surgical consent confirmed. Patient received preoperative antibiotics and Venodyne boots were in place. Local anesthesia consisting of 0.5% Sensorcaine was infiltrated around the umbilicus. A curvilinear incision was created in transverse fashion above the umbilicus. This was carried out through subcutaneous tissue and up to the hernia sac. The hernia sac was dissected down to the fascial edge. Hernia sac was dissected off the umbilical skin as well. The defect was circumferentially freed from the fascial edge and reduced into the abdominal cavity. A preperitoneal space was then created using blunt dissection and electrocautery dissection. A 4.3 cm round Ventralex mesh was then obtained. This was deployed within the preperitoneal space and secured in 4 quadrants using a 0 Tycron suture. Fascia was then closed over the mesh using [id number] 0 Tycron sutures. Wounds were then irrigated with saline solution suctioned dry. Umbilical skin was then reattached to the fascia using a 3-0 Polysorb suture. Subcutaneous tissue and dermis were reapproximated using interrupted 3-0 Polysorb sutures. Skin was closed using a running subcuticular 4-0 Polysorb suture. Steri-Strips 4 x 4 gauze and Tegaderm were then applied. The patient tolerated the procedure well. Sponge, instrument, needle counts reported as correct. The patient was transferred to PACU in stable condition.
[2024-07-10] MEDS: Midazolam HCl 2 MG/2 ML VIAL IVPUSH (13:26)
[2024-07-10] MEDS: oxyCODONE HCl Immed Release 5 MG TABLET PO (15:04)
== END 2024-07-10 15:49 | disposition home or self-care (01) ==
PROVIDERS: Nurse Practitioner; PCP Physician Assistant; Visit Provider Surgery
PROC: (CPT 49591; principal; 2024-07-10 12:20)
DX: K42.9 Umbilical hernia without obstruction or gangrene (principal); I50.9 Heart failure, unspecified; I37.1 Nonrheumatic pulmonary valve insufficiency; R01.1 Cardiac murmur, unspecified; M54.6 Pain in thoracic spine; N62 Hypertrophy of breast; F32.A Depression, unspecified; Z79.1 Long term (current) use of non-steroidal anti-inflammatories (NSAID); Z79.899 Other long term (current) drug therapy; Z98.890 Other specified postprocedural states; Z56.0 Unemployment, unspecified
CPT/HCPCS: 49591; 81025; C1781; J0131; J0690; J1100; J2003; J2250; J2405; J2704; J2795; J3010

== ENCOUNTER → 2024-07-10 10:25 | Outpatient (BNV) | payer MEDICAID, SELFPAY | PROVIDERS: PCP Physician Assistant; Visit Provider Surgery | DX: K42.9 Umbilical hernia without obstruction or gangrene (principal) | CPT/HCPCS: 49613 ==

== ENCOUNTER 2024-07-23 11:43 | Outpatient (AMB) | payer MEDICARE, MEDICAID, SELFPAY ==
--- NOTE | 2024-07-23 11:48 | A.OFFVIS_ITS ---
Vital Signs 07/23/24 11:54 Height 4 ft 11 in Weight 147 lb BMI 29.7 BP 114/55 L Blood Pressure Location Lt brachial Position Sitting Pulse 83 Intake Visit Reasons: S/P umbilical hernia w/mesh Intake Note: Patient is seen in office for post op assessment post Repair of umbilical hernia with mesh. Pt c/o: denies any concerns regarding the surgery, healing as expected surgery:07/10/24 Knockup Worker Required: No Accompanied by: Self / Same As Patient Allergies banana [BANANA] Allergy (Intermediate, Verified 07/23/24 11:52) ABD PAIN Medication List - Last Reconciled 07/23/24 by Hemant Kay MD acetaminophen (Tylenol Extra Strength) 1,000 mg (2 x 500 mg) PO QID PRN cholecalciferol (vitamin D3) 50 mcg PO DAILY 90 days fluoxetine 40 mg PO DAILY 90 days furosemide (Lasix) 20 mg PO DAILY 90 days ibuprofen 800 mg PO TID PRN omeprazole 40 mg PO DAILY 90 days trazodone 50 mg PO BEDTIME 90 days HPI Comments Details: 33-year-old female returning following repair of an umbilical hernia with mesh on 07/10/2024. He reports several days of discomfort however now feels much improved. She denies any abdominal pain, nausea, vomiting, diarrhea or constipation. [facility] Medical History Anemia GERD (gastroesophageal reflux disease) Anxiety URI, acute Habitual snoring SOB (shortness of breath) COVID-19 Amenorrhea Hypocalcemia Thoracic back pain Pulmonic valve regurgitation Depression Congestive heart failure Encounter for Medicare annual wellness exam Macromastia Murmur Back pain Neck pain Surgical History H/O umbilical hernia repair (07/10/24) H/O wisdom tooth extraction History of bone marrow biopsy Hx of right knee surgery History of esophagogastroduodenoscopy (EGD) H/O colonoscopy Tetralogy of Fallot s/p repair Family History Father No problems noted. Mother Asthma Social History Housing: House Are you a primary critical care registered nurse to a significant other at home: Yes Do you presently have visiting nurse or other home services: No Alcohol intake: current Alcohol intake frequency: a few times a month Patient Tobacco Use Status: Never used Tobacco e-Cigarette/Vaping Use: Never Used Second Hand Smoke Exposure: No service: No Current occupational status: unemployed Current occupational exposures/hazards: No Cognitive needs: No Hearing needs: No Vision needs: Yes Female Reproductive History Menstrual Age of Menarche: 14 Physical Exam Vital Signs: Last Vital Signs Pulse 83 07/23/24 11:54 BP 114/55 L 07/23/24 11:54 BMI result Body Mass Index 29.7 Const General: comfortable Nutritional Appearance: well nourished Orientation/consciousness: patient oriented x3 Limitations: no limitations Resp Effort & Inspection: normal respiratory effort, no audible wheezes, no cough and no retractions GI Other: Umbilical incision is clean, dry, and intact without redness or discharge. No hernias noted with Valsalva maneuvers. Neuro General: patient oriented x3 Extrem Other: No edema Assessment & Plan Assessment & Plan (1) Umbilical hernia: Code(s): K42.9 - Umbilical hernia without obstruction or gangrene Category: Medical Qualifiers: Obstruction and gangrene presence: without obstruction or gangrene Qualified Code(s): K42.9 - Umbilical hernia without obstruction or gangrene Plan Patient returns 1 week following repair of an umbilical hernia with mesh. She tolerated the procedure well and her wounds are healing nicely. She should continue to avoid lifting greater than 10 lb for the next month and return at that time for wound check. Coding Level of Care Code Global (98455) Diagnoses Umbilical hernia without obstruction and without gangrene K42.9 Obstruction and gangrene presence: without obstruction or gangrene
[2024-07-23 11:54] VITALS: BP 114/55; PULSE 83; BMI 29.7
--- OUTSIDE RECORDS SUMMARY | 2024-07-23 13:18 | XMS_ITS | Encounter Summary ---
Author Organization [facility] Address [address] [place] [address] Phone Care Team Providers Care Physical Design Engineer Name Role Phone Elva Reilly MD Primary Care Provider [phone] Encounter Details Date Type Department Care Team (Late st Contact Info) Description 06/14/2013 Documentation [facility] [place] [address] [place] [address] Family Medicine, Physician [address] [place], [place] [phone] Social History Tobacco Use Types Packs/Day Years [...] on filedocumented in this encounter Care Teams Physical Design Engineer Relationship Specialty Start Date End Date Elva Reilly MD [address] [place] [address] [place] [address] PCP - General 01/20/17 08/24/22 documented as of this encounter
--- OUTSIDE RECORDS SUMMARY | 2024-07-23 13:18 | XMS_ITS | Clinical Summary ---
Author Organization [facility] Address [address] [place] [address] Phone Care Team Providers Care Binding Dyer Name Role Phone Unavailable Primary Care Provider Unavailabl e Immunizations Immunization Administration Dates Next Due DTP 12/23/1996, 3,07/02/1992,03/26,01/13/1992 [...] Diabetes mellitus, No family history of Sudden /OK under 55, Family history of Asthma, No [...] complete this topic Procedures * Due to [place] [employer] law, this organization might not be sharing sensitive test results. Procedure Name Priority Date/Time Associated Diagnosis Comments CHLAMYDIA AND GONORRHEA, AMPLIFIED Routine 08/01/2013 1:50 PM EST from Last 3 Months or Most Recently Relevant to Health Maintenance Results * Due to [place] [employer] law, this organization might not be sharing sensitive test results. * Chlamydia and Gonorrhoea, Amplified (08/01/2013 1:50 PM EST) URINE CHLAMYDIA AMP PROBE NEGATIVE [facility] Comment: NO CHLAMYDIA TRACHOMATIS RNA DETECTED IN THIS PATIENT'S SAMPLE. (REFERENCE RANGE/NORMAL VALUE: NOT DETECTED) URINE GC AMP PROBE NEGATIVE [facility] Comment: NO NEISSERIA GONORRHOEAE RNA DETECTED IN THIS PATIENT'S SAMPLE. (REFERENCE RANGE/NORMAL VALUE: NOT DETECTED) NOTE: THIS TEST USES SONOGRAPHY TECHNICIAN-MEDIATED AMPLIFICATION METHOD TO DETECT rRNA FROM C.TRACHOMATIS [...] OF INFECTION. Testing performed or reported by [facility], a Service of [facility], [address] [place] [address] Tyrese Gaona, Merchandising Execution Associate 08/01/2013 1:50 PM EST Narrative [facility] - 08/01/2013 1:50 PM EST URINE CHLAMYDIA GC AMP PROBE us Elva Reilly MD LAB MICROBIOLOGY - GENERAL ORDER SARY Final Result [facility] [address] [place] [address], [place] from Last 3 Months or Most Recently Relevant to Health Maintenance
--- OUTSIDE RECORDS SUMMARY | 2024-07-23 13:18 | XMS_ITS | Encounter Summary ---
Author Organization [facility] Address [address] [place] [address] Phone Care Team Providers Care Extras Casting Director Name Role Phone Elva Reilly MD Primary Care Provider [phone] Encounter Details Date Type Department Care Team (Late st Contact Info) Description 03/22/2010 Documentation [facility] [place] Family Medicine [address] [place] [address] Family Medicine, Physician [address] [place], [place] [phone] Social History Tobacco Use Types Packs/Day Years [...] on filedocumented in this encounter Care Teams Extras Casting Director Relationship Specialty Start Date End Date Elva Reilly MD [address] [place] [address] [place] [address] PCP - General 01/20/17 08/24/22 documented as of this encounter
--- OUTSIDE RECORDS SUMMARY | 2024-07-23 13:18 | XMS_ITS | Encounter Summary ---
Author Organization [facility] Address [address] [place] [address] Phone Care Team Providers Care Head Of Mathematics Name Role Phone Elva Reilly MD Primary Care Provider [phone] Encounter Details Date Type Department Care Team (Late st Contact Info) Description 10/06/2009 Documentation [facility] [place] Family Medicine [address] [place] [address] Family Medicine, Physician [address] [phone] Social History Tobacco Use Types Packs/Day Years [...] on filedocumented in this encounter Care Teams Head Of Mathematics Relationship Specialty Start Date End Date Elva Reilly MD [address] [place] [address] [place] [address] PCP - General 01/20/17 08/24/22 documented as of this encounter
--- OUTSIDE RECORDS SUMMARY | 2024-07-23 13:18 | XMS_ITS | Encounter Summary ---
Author Organization [facility] Address [address] [place] [address] Phone Care Team Providers Care Pulp Maker Name Role Phone Elva Reilly MD Primary Care Provider [phone] Encounter Details Date Type Department Care Team (Late st Contact Info) Description 10/05/2009 Documentation [facility] [place] [address] [place] [address] Family Medicine, Physician [address], [place] [phone] Social History Tobacco Use Types Packs/Day Years [...] on filedocumented in this encounter Care Teams Pulp Maker Relationship Specialty Start Date End Date Elva Reilly MD [address] [place] [address] [place] [address] PCP - General 01/20/17 08/24/22 documented as of this encounter
--- OUTSIDE RECORDS SUMMARY | 2024-07-23 13:18 | XMS_ITS | Encounter Summary ---
Author Organization [facility] Address [address] [place] [address] Phone Care Team Providers Care Account Support Manager Name Role Phone Elva Reilly MD Primary Care Provider [phone] Encounter Details Date Type Department Care Team (Late st Contact Info) Description 08/21/2013 Documentation [facility] [place] Family Medicine [address] [place] [address] Family Medicine, Physician [address] [phone] Social History Tobacco Use Types Packs/Day Years [...] on filedocumented in this encounter Care Teams Account Support Manager Relationship Specialty Start Date End Date Elva Reilly MD [address] [place] [address] [place] [address] PCP - General 01/20/17 08/24/22 documented as of this encounter
--- OUTSIDE RECORDS SUMMARY | 2024-07-23 13:18 | XMS_ITS | Encounter Summary ---
Author Organization [facility] Address [address] [place] [address] Phone Care Team Providers Care Plastic Press Operator Name Role Phone Elva Reilly MD Primary Care Provider [phone] Encounter Details Date Type Department Care Team (Late st Contact Info) Description 09/19/2011 Documentation [facility] [place] Family Medicine [address] [place] [address] Family Medicine, Physician [address], [place] [phone] Social History Tobacco Use Types Packs/Day Years [...] on filedocumented in this encounter Care Teams Plastic Press Operator Relationship Specialty Start Date End Date Elva Reilly MD [address] [place] [address] [place] [address] PCP - General 01/20/17 08/24/22 documented as of this encounter
--- OUTSIDE RECORDS SUMMARY | 2024-07-23 13:18 | XMS_ITS | Encounter Summary ---
Author Organization [facility] Address [address] [place] [address] Phone Care Team Providers Care Pillar Worker Name Role Phone Elva Reilly MD Primary Care Provider [phone] Encounter Details Date Type Department Care Team (Late st Contact Info) Description 09/08/2010 Documentation [facility] [place] Family Medicine [address] [place] [address] Family Medicine, Physician [address], [place] [phone] Social History Tobacco Use Types Packs/Day Years [...] on filedocumented in this encounter Care Teams Pillar Worker Relationship Specialty Start Date End Date Elva Reilly MD [address] [place] [address] [place] [address] PCP - General 01/20/17 08/24/22 documented as of this encounter
--- OUTSIDE RECORDS SUMMARY | 2024-07-23 13:18 | XMS_ITS | Encounter Summary ---
Author Organization [facility] Address [address] [place] [address] Phone Care Team Providers Care Photographic Developer And Printer Name Role Phone Elva Reilly MD Primary Care Provider [phone] Encounter Details Date Type Department Care Team (Late st Contact Info) Description 08/20/2013 Documentation [facility] [place] Family Medicine [address] [place] [address] Family Medicine, Physician [address], [place] [phone] Social History Tobacco Use Types Packs/Day Years [...] on filedocumented in this encounter Care Teams Photographic Developer And Printer Relationship Specialty Start Date End Date Elva Reilly MD [address] [place] [address] [place] [address] PCP - General 01/20/17 08/24/22 documented as of this encounter
--- OUTSIDE RECORDS SUMMARY | 2024-07-23 13:18 | XMS_ITS | Encounter Summary ---
Author Organization [facility] Address [address] [place] [address] Phone Care Team Providers Care Pattern Duplicator Name Role Phone Elva Reilly MD Primary Care Provider [phone] Encounter Details Date Type Department Care Team (Late st Contact Info) Description 09/18/[address] [facility] [place] Family Medicine [address] [place] [address] Family Medicine, Physician [address] [phone] Social History Tobacco Use Types Packs/Day Years [...] on filedocumented in this encounter Care Teams Pattern Duplicator Relationship Specialty Start Date End Date Elva Reilly MD [address] [place] [address] [place] [address] PCP - General 01/20/17 08/24/22 documented as of this encounter
--- OUTSIDE RECORDS SUMMARY | 2024-07-23 13:18 | XMS_ITS | Encounter Summary ---
Author Organization [facility] Address [address] [place] [address] Phone Care Team Providers Care Nurse Orthopaedic Name Role Phone Elva Reilly MD Primary Care Provider [phone] Encounter Details Date Type Department Care Team (Late st Contact Info) Description 01/26/2017 Conversion Encounter [facility] [place] [address] [place] [address] Social History Tobacco Use Types Packs/Day Years [...] on filedocumented in this encounter Care Teams Nurse Orthopaedic Relationship Specialty Start Date End Date Elva Reilly MD [address] [place] [address] PCP - General 01/20/17 08/24/22 documented as of this encounter
== END 2024-07-23 11:55 | disposition home or self-care (01) ==
PROVIDERS: PCP Physician Assistant; Visit Provider Surgery
DX: K42.9 Umbilical hernia without obstruction or gangrene (principal)
CPT/HCPCS: 99212

== ENCOUNTER → 2024-07-23 11:43 | Outpatient (BNVA) | payer MEDICARE, MEDICAID, SELFPAY | PROVIDERS: PCP Physician Assistant; Visit Provider Surgery | DX: Z48.815 Encounter for surgical aftercare following surgery on the digestive system (principal); Z98.890 Other specified postprocedural states | CPT/HCPCS: 99212 ==

== ENCOUNTER 2024-08-29 10:18 | Outpatient (AMB) | payer MEDICARE, MEDICAID, SELFPAY ==
--- NOTE | 2024-08-29 10:21 | A.OFFVIS_ITS ---
Vital Signs 08/29/24 10:26 Height 4 ft 11 in Weight 150 lb BMI 30.3 BP 118/54 L Blood Pressure Location Lt brachial Position Sitting Pulse 70 Intake Visit Reasons: 1 mth follow up S/P umbilical hernia w/mesh Intake Note: Patient is seen in office for one month follow up visit, post repair of umbilical hernia with mesh. Pt c/o:denies any concerns Tree Scout Required: No Accompanied by: Self / Same As Patient Allergies banana [BANANA] Allergy (Intermediate, Verified 08/29/24 10:26) ABD PAIN HPI Comments Details: 33-year-old female returning following repair of an umbilical hernia with mesh on 07/10/2024. She feels well and denies any ongoing abdominal symptoms. She denies nausea, vomiting, fever or chills. [facility] Medical History Anemia GERD (gastroesophageal reflux disease) Anxiety URI, acute Habitual snoring SOB (shortness of breath) COVID-19 Amenorrhea Hypocalcemia Thoracic back pain Pulmonic valve regurgitation Depression Congestive heart failure Encounter for Medicare annual wellness exam Macromastia Murmur Back pain Neck pain Surgical History H/O umbilical hernia repair (07/10/24) H/O wisdom tooth extraction History of bone marrow biopsy Hx of right knee surgery History of esophagogastroduodenoscopy (EGD) H/O colonoscopy Tetralogy of Fallot s/p repair Family History Father No problems noted. Mother Asthma Social History Housing: House Are you a primary home health aide caregiver to a significant other at home: Yes Do you presently have visiting nurse or other home services: No Alcohol intake: current Alcohol intake frequency: a few times a month Patient Tobacco Use Status: Never used Tobacco e-Cigarette/Vaping Use: Never Used Second Hand Smoke Exposure: No service: No Current occupational status: unemployed Current occupational exposures/hazards: No Cognitive needs: No Hearing needs: No Vision needs: Yes Female Reproductive History Menstrual Age of Menarche: 14 Physical Exam Const General: comfortable Nutritional Appearance: well nourished Orientation/consciousness: patient oriented x3 Limitations: no limitations Resp Effort & Inspection: normal respiratory effort, no audible wheezes, no cough and no retractions GI Other: Umbilical incision is clean, dry, and intact without redness or discharge. No hernias noted with Valsalva maneuvers. Neuro General: patient oriented x3 Extrem Other: No edema Assessment & Plan Assessment & Plan (1) Umbilical hernia: Code(s): K42.9 - Umbilical hernia without obstruction or gangrene Category: Medical Qualifiers: Obstruction and gangrene presence: without obstruction or gangrene Qualified Code(s): K42.9 - Umbilical hernia without obstruction or gangrene Plan Patient returns 1 month following repair of an umbilical hernia with mesh. She tolerated the procedure well and her wounds are healing nicely. She may resume normal activity without restrictions and should follow up as needed. Coding Level of Care Code Global (69017) Diagnoses Umbilical hernia without obstruction and without gangrene K42.9 Obstruction and gangrene presence: without obstruction or gangrene
[2024-08-29 10:26] VITALS: BP 118/54; PULSE 70; BMI 30.3
== END 2024-08-29 10:35 | disposition home or self-care (01) ==
LOC: HO.HGS 10:19
PROVIDERS: PCP Physician Assistant; Visit Provider Surgery
DX: K42.9 Umbilical hernia without obstruction or gangrene (principal)
CPT/HCPCS: 99212

== ENCOUNTER → 2024-08-29 10:18 | Outpatient (BNVA) | payer MEDICARE, MEDICAID, SELFPAY | PROVIDERS: PCP Physician Assistant; Visit Provider Surgery | DX: Z09 Encounter for follow-up examination after completed treatment for conditions other than malignant neoplasm (principal); Z87.19 Personal history of other diseases of the digestive system; Z98.890 Other specified postprocedural states | CPT/HCPCS: 99212 ==

== ENCOUNTER 2025-03-10 09:32 | Outpatient (REF) | payer MEDICARE, MEDICAID, SELFPAY ==
[2025-03-10 10:55] LABS: Hematocrit 35.6 % (37.0-47.0); Hemoglobin 12.9 g/dl (12.0-16.0); Mean Corpuscular HGB Conc 36.2 g/dl (31.0-35.0); Mean Corpuscular Hemoglobin 38.9 pg (27.0-33.0); Mean Corpuscular Volume 107.2 fL (80.0-98.0); NRBC Abs Auto 0.000 X10*3/uL (0.0-0.012); NRBC Pct Auto 0.0 /100WBC (0.0-0.2); Platelet Count 282 X10*3/uL (160-400); Red Blood Count 3.32 X10*6/uL (4.20-5.50); White Blood Count 4.3 X10*3/uL (4.8-10.8)
[2025-03-10 11:23] LABS: Alanine Aminotransferase 115 U/L (0-31); Albumin Level 4.4 g/dL (3.5-5.0); Alkaline Phosphatase 55 U/L (39-117); Anion Gap 10 (12-20); Aspartate Amino Transferase 62 U/L (5-31); Blood Urea Nitrogen 8 mg/dL (9-16); Calcium 8.7 mg/dL (8.4-10.2); Carbon Dioxide 27 mmol/L (22-29); Chloride 107 mmol/L (96-108); Cholesterol 214 mg/dL (<200); Estimated Glomerular Filt Rate > 60; HDL Cholesterol 42 mg/dL (>40); Potassium 4.3 mmol/L (3.3-5.1); Sodium 140 mmol/L (135-145); Total Protein 7.3 g/dL (6.5-8.0); Triglycerides 171 mg/dL (<150)
[2025-03-10 11:52] LABS: Folate 14.5 ng/mL (> or = 4.0); Vitamin B12 475 pg/mL (200-900)
== END 2025-03-10 09:33 | disposition home or self-care (01) ==
LOC: HO.LAB 09:32
PROVIDERS: PCP Physician Assistant; Visit Provider Physician Assistant
DX: Z00.00 Encounter for general adult medical examination without abnormal findings (principal); E53.8 Deficiency of other specified B group vitamins; D53.9 Nutritional anemia, unspecified; F33.1 Major depressive disorder, recurrent, moderate; I50.9 Heart failure, unspecified; N62 Hypertrophy of breast; Z79.899 Other long term (current) drug therapy; Z86.79 Personal history of other diseases of the circulatory system; Z87.74 Personal history of (corrected) congenital malformations of heart and circulatory system
CPT/HCPCS: 36415; 80053; 80061; 82607; 82746; 85027; 96127; 99395

== ENCOUNTER 2025-03-10 09:32 | Outpatient (AMB) | payer MEDICARE, MEDICAID, SELFPAY ==
--- NOTE | 2025-03-10 09:39 | MHC.PC.OV ---
Vital Signs 03/10/25 09:40 Height 4 ft 11 in Weight 154 lb 2 oz BMI 31.1 BP 130/68 Blood Pressure Location Lt brachial Position Sitting Pulse 76 Pulse Source Pulse Oximeter Temp 97.3 F Temp Source Temporal Artery Scan Pulse Oximetry (%) 96 Oxygen Delivery Method Room Air Intake Visit Reasons: Annual Exam Intake Note: Patient is here today for a physical. Chief Passenger Ship Steward/Stewardess Required: No Internal Grinder: Not Required per policy Accompanied by: Self / Same As Patient Allergies banana (BANANA) Allergy (Intermediate, Verified 03/10/25 09:50) ABD PAIN Medication List - Last Reconciled 03/10/25 by Jacek Champion PA-C acetaminophen (Tylenol Extra Strength) 1,000 mg (2 x 500 mg) PO QID PRN cholecalciferol (vitamin D3) 50 mcg PO DAILY 90 days fluoxetine 40 mg PO DAILY 90 days furosemide (Lasix) 20 mg PO DAILY 90 days ibuprofen 800 mg PO TID PRN omeprazole 40 mg PO DAILY 90 days trazodone 50 mg PO BEDTIME 90 days Tobacco use date assessed: 03/10/25 Dental Screening Dental Screen Date: 06/19/24 HPI Annual Exam HPI Details Patient is a 34-year-old female here today for routine annual physical.? Patient has a past medical history significant for Congestive heart failure, major depressive disorder, anxiety, macrocytic anemia Concern --> The patient has been experiencing macromastia, which has resulted in upper back pain. She is seeking a breast reduction surgery to alleviate these symptoms and has previously requested a letter for this purpose. .. Major depressive disorder: Has been fairly stable though has lost her follow-up with her psychiatrist now needs PCP to manage her mental health medications. Patient does also suffer from anxiety and panic disorder thus does use lorazepam 0.5 mg and a very limited p.r.n. basis for panic. .. Congestive heart failure:? Patient born with tetralogy of Fallot,? Patient is followed by residential building inspector in [place] (Dr Monet), continues on diuretic therapy daily. Of note has gained weight since last office visit the attributes this to poor diet. She has recently gone through cardiac MRI and stress test which per patient were stable. .. Microcytic anemia:? Has been on longstanding patient.? B12 and folate levels are normal.? Patient reports she was previously evaluated by Hematology and got bone marrow biopsy without any significant findings. Has recently followed up with Hematology in believes her macrocytosis may be genetic. .. Gastric reflux:? Has had a long history of her symptoms that have been able to be controlled with PPI therapy.? Regulatory And Compliance Technician: Followed by obstetrician gynecologist Saul Henry to date with Pap screening :Vaccines declines COVID vaccine, Considering flu vaccine , up-to-date with pneumonia and tetanus vaccine [facility] Medical History (Updated 03/10/25 @ 10:09 by Jacek Champion PA-C) Macromastia Anemia GERD (gastroesophageal reflux disease) Anxiety URI, acute Habitual snoring SOB (shortness of breath) COVID-19 Amenorrhea Hypocalcemia Thoracic back pain Pulmonic valve regurgitation Depression Congestive heart failure Encounter for Medicare annual wellness exam Murmur Back pain Neck pain Surgical History (Updated 03/10/25 @ 10:09 by Jacek Champion PA-C) H/O umbilical hernia repair (07/10/24) H/O wisdom tooth extraction History of bone marrow biopsy Hx of right knee surgery History of esophagogastroduodenoscopy (EGD) H/O colonoscopy Tetralogy of Fallot s/p repair Family History Father No problems noted. Mother Asthma Social History (Updated 03/10/25 @ 09:53 by Jacek Champion PA-C) Housing: House Are you a primary floor care specialist to a significant other at home: Yes Do you presently have visiting nurse or other home services: No Alcohol intake: current Alcohol intake frequency: a few times a month Patient Tobacco Use Status: Never used Tobacco e-Cigarette/Vaping Use: Never Used Second Hand Smoke Exposure: No service: No Current occupational status: unemployed Current occupational exposures/hazards: No Cognitive needs: No Hearing needs: No Vision needs: Yes Female Reproductive History Menstrual Age of Menarche: 14 Questionnaire PHQ-9 Over the last 2 weeks, how often have you been bothered by any of the following problems? 1. Little interest or pleasure in doing things: several days 2. Feeling down, depressed, or hopeless: several days 3. Trouble falling or staying asleep, or sleeping too much: several days 4. Feeling tired or having little energy: several days 5. Poor appetite or overeating: several days 6. Feeling bad about yourself - or that you are a failure or have let yourself or your family down: several days 7. Trouble concentrating on things, such as reading the newspaper or watching television: several days 8. Moving or speaking so slowly that other people could have noticed. Or the opposite - being so fidgety or restless that you have been moving around a lot more than usual: several days 9. Thoughts that you would be better off or of hurting yourself in some way: several days Total score: 9 Depression Screening Interpretation: Positive Depression Screening Done: Yes 75518 - PHQ-9 Billing: Yes Source: Developed by Drs. Madi Davalos, Carine Yarbrough, Vladimir Trejo and colleagues, with an educational ronald from [employer]. Thrive Questionnaire Date Thrive assessed: 06/19/24 I am a: Patient What is your living situation today?: I have a steady place to live Within the past 12 months, did the food you bought not last and you didn't have the money to get more?: Never true Within the past 12 months, did you worry whether your food would run out before you got money to buy more?: Never true Do you have trouble paying for medicines?: No Do you have trouble getting transportation to medical appointments?: No Do you have trouble paying your heating and electricity bill?: No Do you have trouble taking care of your child, family member or friend?: No Do you have trouble with day-to-day activities such as bathing, preparing meals, shopping, managing finances, etc.?: No Are you currently unemployed and looking for a job?: Yes Are you interested in more education?: No Please select the resources that you would like help with: None Currently or been in a relationship where the following occur: No concerns reported THRIVE Score: 0 AUDIT C Alcohol Use Questionnaire (AUDIT-C) 1. How often do you have a drink containing alcohol?: 2-3 times a week Total Score: 3 RUMA-7 AMB Questionnaire RUMA-7 Date RUMA - 7 assessed: 06/19/24 Feeling nervous, anxious, or on edge: 1 = Several days Not being able to stop or control worryin = Several days Worrying too much about different things: 1 = Several days Trouble relaxin = Several days Being so restless that it is hard to sit still: 1 = Several days Becoming easily annoyed or irritable: 1 = Several days Feeling afraid as if something awful might happen: 1 = Several days Total RUMA-7 score (0-4 normal; 5-9 mild; 10-14 moderate; 15-21 severe): 7 Source: Developed by Drs. Madi Davalos, Carine Yarbrough, Vladimir Trejo and colleagues, with an educational ronald from [employer]. RUMA-7 Assessment Billing RUMA-7 Assessment Tool: RUMA-7 Assessment 78006 Review of Systems Const Denies body aches, Denies chills, Denies excessive sweating, Denies fatigue, Denies fever(s) and Denies headache(s) Eyes Denies blurry vision ENT Denies dysphagia, Denies vertigo, Denies dizziness, Denies headache(s), Denies hearing loss and Denies tinnitus Card Denies chest pain, Denies chest pain with activity, Denies syncope, Denies irregular heart rhythm and Denies dyspnea Resp Denies chest congestion, Denies cough, Denies hemoptysis, Denies dyspnea and Denies wheezing GI Denies abdominal pain, Denies melena, Denies hematochezia, Denies coffee ground emesis, Denies dysphagia, Denies diarrhea, Denies nausea and Denies vomiting Denies urinary frequency, Denies dysuria, Denies urinary hesitancy and Denies urinary urgency Musc Denies arthralgias, Denies limited range of motion, Denies muscle cramps and Denies muscle weakness Skin/Breast Denies rash and Denies skin ulcer Neuro Denies Abnormal speech present, Denies confusion, Denies vertigo, Denies dizziness, Denies syncope, Denies headache(s), Denies memory loss and Denies seizure-like activity Psych Denies anxiety, Denies confusion, Denies depression, Denies memory loss, Denies panic attacks and Denies paranoia Endo Denies excessive sweating, Denies fatigue, Denies flushing, Denies polydipsia and Denies polyuria Aller/Immun Denies wheezing Physical exam (Primary Care) Vital Signs: Last Vital Signs Temp 97.3 F 03/10/25 09:40 Pulse 76 03/10/25 09:40 BP 130/68 03/10/25 09:40 Pulse Ox 96 03/10/25 09:40 Oxygen Delivery Method Room Air 03/10/25 09:40 BMI result Body Mass Index 31.1 BMI Assessment/Plan discussion: High BMI High, discussed plan: lifestyle, weight reduction, dietary and physical activity Tobacco/Smoking Status: Tobacco use Status Tobacco use date assessed 03/10/25 03/10/25 09:44 Patient Tobacco Use Status Never used Tobacco 03/10/25 09:44 e-Cigarette/Vaping Use Never Used 03/10/25 09:44 PHQ-9: PHQ-9 Score PHQ-9: Total score 9 03/10/25 09:44 Depression Screening Interpretation: Positive Thrive Assessment: Date of Thrive Assessment Date Thrive assessed 06/19/24 03/10/25 09:44 Currently or been in a relationship where the following occur: No concerns reported Const General: cooperative, comfortable, no acute distress, alert and awake; No confusion Orientation/consciousness: oriented to person, oriented to place, patient oriented x3 and No confusion HENMT Head: Yes normocephalic Ears: external ears normal and TM's normal bilaterally Face and sinus: No sinus tenderness Mouth: Normal oral and palatal mucosa present and tongue normal Teeth and gingiva: dentition normal and gingiva normal Throat: Yes posterior oropharynx normal, Yes tonsils normal and Yes uvula midline Eyes Conjunctivae: conjunctivae normal Sclerae: sclerae normal Pupils: Equal, round and reactive pupils present EOM: EOMs intact bilaterally Direct Ophthalmoscopy: No no photophobia Neck Neck: Yes no lymphadenopathy, No tender and Yes no JVD Thyroid: Thyroid normal Carotids: no bruits Chest Other: LARGE BREAST Chest palpation & inspection: no tenderness Resp Effort & Inspection: normal respiratory effort, no audible wheezes, not labored and no stridor Auscultation: no crackles, no rales, no rhonchi and no wheezes Cardio Jugular venous distension: no JVD Rate: regular rate, not bradycardic and not tachycardic Rhythm: regular rhythm Bruits: no carotid bruits Peripheral pulses: Peripheral pulses 2+ throughout GI Inspection: Yes normal to inspection, No abdominal wall ecchymosis and No visible herniation Palpation (GI): Soft to palpation, nontender, no guarding, not rigid and No hepatosplenomegaly present Auscultation: normoactive bowel sounds General: Yes no CVA tenderness Back/Spine/Pelvis Back: no CVA tenderness and No back tenderness Cervical Spine: cervical ROM normal Thoracic/Lumbar Spine: thoracic and lumbar spine normal to inspection, straight leg raise negative bilaterally, No thoraco-lumbar ROM limited and No lumbar spinal tenderness Skin Lesions: no lesions Rashes: no rashes Wounds: no wounds Neuro General: oriented to person, oriented to place, patient oriented x3, CN's II-XI intact bilaterally and No confusion Cranial nerves: Yes Equal, round and reactive pupils present and Yes Normal accommodation reflex present Cognition (Neuro): normal cognition Speech: No Abnormal speech present Gait exam (Neuro): Normal gait present Motor exam (neuro): 5/5 motor strength present throughout Extrem Right upper extremity: full ROM; no cyanosis Left upper extremity: full ROM; no cyanosis Right lower extremity: no edema Left lower extremity: no edema Psych Appearance: grossly normal Mental Status: mental status grossly normal Affect: normal affect Attitude: cooperative Thought process: Normal thought process present Coding Level of Care Code Est Pt Prev Care 18-39y(94426) Diagnoses Annual physical exam Z00.00 MDD (major depressive disorder), recurrent episode, moderate F33.1 Tetralogy of Fallot s/p repair Z87.74 Other congestive heart failure I50.9 Heart failure type: other Macromastia N62 Additional Codes PHQ-9 - 98947 - PHQ-9 Billing: Yes ([id number]) RUMA-7 Assessment Billing - RUMA-7 Assessment Tool: RUMA-7 Assessment 01002 ([id number]) Assessment & Plan Assessment & Plan (1) Annual physical exam: Code(s): Z00.00 - Encounter for general adult medical examination without abnormal findings Category: Medical Plan: As per HPI (2) MDD (major depressive disorder), recurrent episode, moderate: Code(s): F33.1 - Major depressive disorder, recurrent, moderate Category: Medical Plan: Patient's PHQ-9 score positive for mild depression which has been existing condition for her. She continues with SSRI therapy with good effect. (3) Tetralogy of Fallot s/p repair: Comment: as a baby Code(s): Z87.74 - Personal history of (corrected) congenital malformations of heart and circulatory system Category: Surgical Plan: Patient continues to follow a [place] residential building inspector and underwent recent cardiac MRI in stress test which were stable. (4) Congestive heart failure: Code(s): I50.9 - Heart failure, unspecified Category: Medical Qualifiers: Heart failure type: other Qualified Code(s): I50.9 - Heart failure, unspecified Plan: As above patient continues to compensated her fluid status with Lasix 20 mg daily (5) Macromastia: Code(s): N62 - Hypertrophy of breast Category: Medical Plan: The patient will receive a signed letter for breast reduction surgery, which is intended to alleviate symptoms associated with macromastia, such as upper back pain. Orders: Orders Comprehensive [place]. Panel Fast Today Z86.79 - Personal history of other diseases of the circulatory system Lipid Panel Today Z86.79 - Personal history of other diseases of the circulatory system Complete Blood Count no Diff Today Z86.79 - Personal history of other diseases of the circulatory system Vitamin B12 and Folate Today D53.9 - Nutritional anemia, unspecified, E53.8 - Deficiency of other specified B group vitamins Medications: New lorazepam 0.5 mg PO BID PRN 10 tabs 0RF anxiety 5 days F41.1 - Generalized anxiety disorder Refilled fluoxetine 40 mg PO DAILY 90 caps 2RF 90 days F33.1 - Major depressive disorder, recurrent, moderate
[2025-03-10 09:40] VITALS: BP 130/68; PULSE 76; TEMP 36.3; O2SAT 96; BMI 31.1
--- OUTSIDE RECORDS SUMMARY | 2025-03-10 10:23 | XMS_ITS | Encounter Summary ---
Author Organization [facility] Address [address] [place] [address] Phone Care Team Providers Care Bog Worker Name Role Phone Elva Reilly MD Primary Care Provider [phone] Encounter Details Date Type Department Care Team (Late st Contact Info) Description 01/26/2017 Conversion Encounter [facility] [place] [address] [place] [address] Social History Tobacco Use Types Packs/Day Years [...] on filedocumented in this encounter Care Teams Bog Worker Relationship Specialty Start Date End Date Elva Reilly MD [address] [place] [address] PCP - General 01/20/17 08/24/22 documented as of this encounter
--- OUTSIDE RECORDS SUMMARY | 2025-03-10 10:23 | XMS_ITS | Encounter Summary ---
Author Organization [facility] Address [address] [place] [address] Phone Care Team Providers Care Quantitative Analyst Marketing Name Role Phone Elva Reilly MD Primary Care Provider [phone] Encounter Details Date Type Department Care Team (Late st Contact Info) Description 10/06/2009 Documentation [facility] [place] [address] [place] [address] Family Medicine, Physician [address], [place] [phone] Social History Tobacco Use Types Packs/Day Years [...] on filedocumented in this encounter Care Teams Quantitative Analyst Marketing Relationship Specialty Start Date End Date Elva Reilly MD [address] [place] [address] [place] [address] PCP - General 01/20/17 08/24/22 documented as of this encounter
--- OUTSIDE RECORDS SUMMARY | 2025-03-10 10:23 | XMS_ITS | Encounter Summary ---
Author Organization [facility] Address [address] [place] [address] Phone Care Team Providers Care Pest Control Service Sales Agent Name Role Phone Elva Reilly MD Primary Care Provider [phone] Encounter Details Date Type Department Care Team (Late st Contact Info) Description 06/14/2013 Documentation [facility] [place] [address] [place] [address] Family Medicine, Physician [address], [place] [phone] Social History Tobacco Use Types Packs/Day Years [...] on filedocumented in this encounter Care Teams Pest Control Service Sales Agent Relationship Specialty Start Date End Date Elva Reilly MD [address] [place] [address] [place] [address] PCP - General 01/20/17 08/24/22 documented as of this encounter
--- OUTSIDE RECORDS SUMMARY | 2025-03-10 10:23 | XMS_ITS | Encounter Summary ---
Author Organization [facility] Address [address] [place] [address] Phone Care Team Providers Care Radio Repair Teacher Name Role Phone Elva Reilly MD Primary Care Provider [phone] Encounter Details Date Type Department Care Team (Late st Contact Info) Description 09/08/2010 Documentation [facility] [place] [address] [place] [address] Family Medicine, Physician [address] [phone] Social History Tobacco Use Types Packs/Day Years [...] on filedocumented in this encounter Care Teams Radio Repair Teacher Relationship Specialty Start Date End Date Elva Reilly MD [address] [place] [address] [place] [address] PCP - General 01/20/17 08/24/22 documented as of this encounter
--- OUTSIDE RECORDS SUMMARY | 2025-03-10 10:23 | XMS_ITS | Encounter Summary ---
Author Organization [facility] Address [address] [place] [address] Phone Care Team Providers Care Rack Carrier Name Role Phone Elva Reilly MD Primary Care Provider [phone] Encounter Details Date Type Department Care Team (Late st Contact Info) Description 09/19/2011 Documentation [facility] [place] Family Medicine [address] [place] [address] Family Medicine, Physician [address] [place] [phone] Social History Tobacco Use Types Packs/Day Years [...] on filedocumented in this encounter Care Teams Rack Carrier Relationship Specialty Start Date End Date Elva Reilly MD [address] [place] [address] [place] [address] PCP - General 01/20/17 08/24/22 documented as of this encounter
--- OUTSIDE RECORDS SUMMARY | 2025-03-10 10:23 | XMS_ITS | Encounter Summary ---
Author Organization [facility] Address [address] [place] [address] Phone Care Team Providers Care Air Bag Curer Name Role Phone Elva Reilly MD Primary Care Provider [phone] Encounter Details Date Type Department Care Team (Late st Contact Info) Description 08/20/2013 Documentation [facility] [place] [address] [place] [address] Family Medicine, Physician [address] [place], [place] [phone] Social History Tobacco Use Types Packs/Day Years [...] on filedocumented in this encounter Care Teams Air Bag Curer Relationship Specialty Start Date End Date Elva Reilly MD [address] [place] [address] [place] [address] PCP - General 01/20/17 08/24/22 documented as of this encounter
--- OUTSIDE RECORDS SUMMARY | 2025-03-10 10:23 | XMS_ITS | Encounter Summary ---
Author Organization [facility] Address [address] [place] [address] Phone Care Team Providers Care Alumni Coordinator Name Role Phone Elva Reilly MD Primary Care Provider [phone] Encounter Details Date Type Department Care Team (Late st Contact Info) Description 09/18/2009 Documentation [facility] [place] [address] [place] [address] Family Medicine, Physician [address] [place], [place] [phone] Social History Tobacco Use Types Packs/Day Years [...] on filedocumented in this encounter Care Teams Alumni Coordinator Relationship Specialty Start Date End Date Elva Reilly MD [address] [place] [address] [place] [address] PCP - General 01/20/17 08/24/22 documented as of this encounter
--- OUTSIDE RECORDS SUMMARY | 2025-03-10 10:23 | XMS_ITS | Clinical Summary ---
Author Organization [facility] Address [address] [place] [address] Phone Care Team Providers Care Petroleum Production Engineer Name Role Phone Mar Samayoa Primary Care Provider [phone] Mar Samayoa Unavailable [phone] Mar Samayoa Unavailable [phone] Letty Lee MD Unavailable Social History Tobacco Use Types Packs/Day Years Used Date Smoking Tobacco: Never Assessed Comments Unknown Sex and Gender Information Value Date Recorded Sex Assigned at Not on file Legal Sex Female 8:18 PM EDT Gender Identity Not on file Sexual Orientation Not on file Plan of Treatment Not on file Care Teams Petroleum Production Engineer Relationship Specialty Start Date End Date Mar Samayoa [address] [place] [address] PCP - General 11/10/15 Mar Samayoa [address] [place] [address] PCP - Clinical PCP 11/10/15 Mar Samayoa [address] [place] [address] PCP - Insurance PCP 11/10/15 Letty Lee MD [address] [place] [phone] HC Outside Rn Invasive 11/11/23
--- OUTSIDE RECORDS SUMMARY | 2025-03-10 10:23 | XMS_ITS | Encounter Summary ---
Author Organization [facility] Address [address] [place] [address] Phone Care Team Providers Care Airline Stewardess Name Role Phone Elva Reilly MD Primary Care Provider [phone] Encounter Details Date Type Department Care Team (Late st Contact Info) Description 08/21/2013 Documentation [facility] [place] Family [place] [address] [place] [address] Family Medicine, Physician [address] [place], [place] [id number] Social History Tobacco Use Types Packs/Day Years [...] on filedocumented in this encounter Care Teams Airline Stewardess Relationship Specialty Start Date End Date Elva Reilly MD [address] [place] [address] [place] [address] PCP - General 01/20/17 08/24/22 documented as of this encounter
--- OUTSIDE RECORDS SUMMARY | 2025-03-10 10:23 | XMS_ITS | Encounter Summary ---
Author Organization [facility] Address [address] [place] [address] Phone Care Team Providers Care Ground Helper Street Railway Name Role Phone Elva Reilly MD Primary Care Provider [phone] Encounter Details Date Type Department Care Team (Late st Contact Info) Description 03/22/2010 Documentation [facility] [place] [address] [place] [address] Family Medicine, Physician [address] [place], [place] [phone] Social History Tobacco Use Types Packs/Day Years [...] on filedocumented in this encounter Care Teams Ground Helper [address] Railway Relationship Specialty Start Date End Date Elva Reilly MD [address] [place] [address] [place] [address] PCP - General 01/20/17 08/24/22 documented as of this encounter
--- OUTSIDE RECORDS SUMMARY | 2025-03-10 10:23 | XMS_ITS | Encounter Summary ---
Author Organization [facility] Address [address] [place] [address] Phone Care Team Providers Care Sales Service Representative Name Role Phone Elva Reilly MD Primary Care Provider [phone] Encounter Details Date Type Department Care Team (Late st Contact Info) Description 10/05/2009 Documentation [facility] [place] Medicine [address] [place] [address] Family Medicine, Physician [address] [place], [place] [phone] Social History Tobacco Use Types Packs/Day Years [...] on filedocumented in this encounter Care Teams Sales Service Representative Relationship Specialty Start Date End Date Elva Reilly MD [address] [place] [address] [place] [address] PCP - General 01/20/17 08/24/22 documented as of this encounter
--- OUTSIDE RECORDS SUMMARY | 2025-03-10 10:23 | XMS_ITS | Clinical Summary ---
Author Organization [facility] Address [address] [place] [address] Phone Care Team Providers Care Resource Management Planner Name Role Phone Unavailable Primary Care Provider [...] Diabetes mellitus, No family history of Sudden /[place] under 55, Family history of Asthma, No [...] 94 08/05/2013 12:00 AM EST Temperature 36.3 C (97.4 F) 07/31/2013 12:00 AM EST Respiratory Rate - - Oxygen Saturation 97% [...] of 2 - 13+ 2-dose series) 11/11/2004 DTaP,Tdap,and Td Vaccines (7 - Td or Tdap) 11/21/2017 11/22/2007, 10/04/2004, 12/23/1996, Additional history exists Influenza Vaccines (#1) 2025 04/12/20 13, 02/14/2012, 02/02/2011, Additional history exists COVID-19 Vaccine ( - 2023- season) 2025 Hepatitis B Vaccines Completed 10/09/1992, 01/13/1992, 1991 [...] complete this topic Procedures * Due to [place] [employer] [facility] law, this organization might not be sharing sensitive test results. Procedure Name Priority Date/Time Associated Diagnosis Comments CHLAMYDIA AND GONORRHEA, AMPLIFIED Routine 08/01/2013 1:50 PM EST from Last 3 Months or Most Recently Relevant to Health Maintenance Results * Due to [facility] law, this organization might not be sharing sensitive test results. * Chlamydia and Gonorrhoea, Amplified (08/01/2013 1:50 PM EST) URINE CHLAMYDIA AMP PROBE NEGATIVE [facility] Comment: NO CHLAMYDIA TRACHOMATIS RNA DETECTED IN THIS PATIENT'S SAMPLE. (REFERENCE RANGE/NORMAL VALUE: NOT DETECTED) URINE GC AMP PROBE NEGATIVE [facility] Comment: NO NEISSERIA GONORRHOEAE RNA DETECTED IN THIS PATIENT'S SAMPLE. (REFERENCE RANGE/NORMAL VALUE: NOT DETECTED) NOTE: THIS TEST USES HOME SALES CONSULTANT-MEDIATED AMPLIFICATION METHOD TO DETECT rRNA FROM C.TRACHOMATIS [...] OF INFECTION. Testing performed or reported by [facility], a Service of [facility], [address] [place] [address] Tyrese Gaona, Corset Fitter 08/01/2013 1:50 PM EST Narrative [facility] - 08/01/2013 1:50 PM EST URINE CHLAMYDIA GC AMP PROBE us Elva Reilly MD LAB MICROBIOLOGY - GENERAL ORDER SARY Final Result [facility] [address] [place] [address], [place] from Last 3 Months or Most Recently Relevant to Health Maintenance
== END 2025-03-10 10:07 | disposition home or self-care (01) ==
LOC: HO.HMCH 09:33
PROVIDERS: PCP Physician Assistant; Visit Provider Physician Assistant
DX: Z00.00 Encounter for general adult medical examination without abnormal findings (principal); F33.1 Major depressive disorder, recurrent, moderate; Z87.74 Personal history of (corrected) congenital malformations of heart and circulatory system; I50.9 Heart failure, unspecified; N62 Hypertrophy of breast

== ENCOUNTER 2025-05-15 09:13 | Outpatient (REF) | payer MEDICARE, MEDICAID, SELFPAY ==
--- NOTE | ~2025-05-15 | US_ITS ---
EXAMINATION: US ABDOMEN COMPLETE CLINICAL INFORMATION: R 74.8. Abnormal levels of other serum enzymes.. COMPARISON: Ultrasound abdomen limited dated March 19, 2021 and April 08, 2016. TECHNIQUE: Real-time ultrasound of the abdomen using grayscale technique. FINDINGS: PANCREAS: No peripancreatic fluid collections. ABDOMINAL AORTA: The proximal, mid, and distal segments are normal in caliber. INFERIOR VENA CAVA: Visualized portions are normal. LIVER: 15 cm. Increased echotexture. No nodular surface. No solid or cystic lesion. No intrahepatic biliary ductal dilatation. Main portal vein is patent with normal hepatopedal flow direction. GALLBLADDER: Fluid-filled nondistended. No pericholecystic fluid collection or gallbladder wall thickening. COMMON BILE DUCT: 2 mm. RIGHT KIDNEY: 10 cm. Normal echotexture. Renal cortical thickness is normal. No hydronephrosis. No solid or cystic lesion. LEFT KIDNEY: 8 cm. Normal echotexture. Renal cortical thickness is normal. No hydronephrosis. No solid or cystic lesion.. SPLEEN: 11 cm. No solid or cystic lesion. FREE FLUID: None. US/US abdomen complete IMPRESSION: Hepatic steatosis. No cholelithiasis or gross choledocholithiasis. No hydronephrosis. Electronically signed by: Paulo Martinez MD 05/15/2025 11:05 AM [facility]
--- OUTSIDE RECORDS SUMMARY | 2025-05-15 10:08 | XMS_ITS | Encounter Summary ---
Author Organization [facility] Address [address] [place] [address] Phone Care Team Providers Care Slot Floor Person Name Role Phone Elva Reilly MD Primary Care Provider [phone] Encounter Details Date Type Department Care Team (Late st Contact Info) Description 10/06/2009 Documentation [facility] [place] [facility] [place] [address] [place] [address] Family Medicine, Physician [address], [place] [phone] Social History Tobacco Use Types Packs/Day Years [...] on filedocumented in this encounter Care Teams Slot Floor Person Relationship Specialty Start Date End Date Elva Reilly MD [address] [place] [address] [place] [address] PCP - General 01/20/17 08/24/22 documented as of this encounter
--- OUTSIDE RECORDS SUMMARY | 2025-05-15 10:08 | XMS_ITS | Clinical Summary ---
Author Organization [facility] Address [address] [place] [address] Phone Care Team Providers Care Senior Financial Name Role Phone Mar Samayoa Primary Care Provider [phone] Mar Samayoa Unavailable [phone] Mar Samayoa Unavailable [phone] Letty Lee MD Unavailable Social History Tobacco Use Types Packs/Day Years Used Date Smoking Tobacco: Never Assessed Comments Unknown Sex and Gender Information Value Date Recorded Sex Assigned at Not on file Legal Sex Female 8:18 PM EDT Gender Identity Not on file Sexual Orientation Not on file Plan of Treatment Not on file Care Teams Senior Financial Relationship Specialty Start Date End Date Mar Samayoa [address] [place] [address] PCP - General 11/10/15 Mar Samayoa [address] [place] [address] PCP - Clinical PCP 11/10/15 Mar Samayoa [address] [place] [address] PCP - Insurance PCP 11/10/15 Letty Lee MD [address] [place] [phone] HC Outside Funeral Home Location Manager 11/11/23
--- OUTSIDE RECORDS SUMMARY | 2025-05-15 10:08 | XMS_ITS | Encounter Summary ---
Author Organization [facility] Address [address] [place] [address] Phone Care Team Providers Care Intelligence Group Supervisor Name Role Phone Elva Reilly MD Primary Care Provider [phone] Encounter Details Date Type Department Care Team (Late st Contact Info) Description 10/05/2009 Documentation [facility] [place] [address] [place] [address] Family Medicine, Physician [address] [place], [place] [phone] Social History Tobacco Use Types Packs/Day Years [...] on filedocumented in this encounter Care Teams Intelligence Group Supervisor Relationship Specialty Start Date End Date Elva Reilly MD [address] [place] [address] [place] [address] PCP - General 01/20/17 08/24/22 documented as of this encounter
--- OUTSIDE RECORDS SUMMARY | 2025-05-15 10:08 | XMS_ITS | Encounter Summary ---
Author Organization [facility] Address [address] [place] [address] Phone Care Team Providers Care Newspaper Library Manager Name Role Phone Elva Reilly MD Primary Care Provider [phone] Encounter Details Date Type Department Care Team (Late st Contact Info) Description 09/08/2010 [place] [facility] [place] [address] [place] [address] Family Medicine, Physician [address], [place] [phone] Social History Tobacco Use Types Packs/Day Years [...] on filedocumented in this encounter Care Teams Newspaper Library Manager Relationship Specialty Start Date End Date Elva Reilly MD [address] [place] [address] [place] [address] PCP - General 01/20/17 08/24/22 documented as of this encounter
--- OUTSIDE RECORDS SUMMARY | 2025-05-15 10:08 | XMS_ITS | Encounter Summary ---
Author Organization [facility] Address [address] [place] [address] Phone Care Team Providers Care Right Of Way Man Name Role Phone Elva Reilly MD Primary Care Provider [phone] Encounter Details Date Type Department Care Team (Late st Contact Info) Description 09/19/2011 [place]ation [facility] [place] [address] [place] [address] Family Medicine, Physician [address], [place] [phone] Social History Tobacco Use Types Packs/Day Years [...] on filedocumented in this encounter Care Teams Right Of Way Man Relationship Specialty Start Date End Date Elva Reilly MD [address] [place] [address] [place] [address] PCP - General 01/20/17 08/24/22 documented as of this encounter
--- OUTSIDE RECORDS SUMMARY | 2025-05-15 10:08 | XMS_ITS | Encounter Summary ---
Author Organization [facility] Address [address] [place] [address] Phone Care Team Providers Care Affiliate Marketing Manager Name Role Phone Elva Reilly MD Primary Care Provider [phone] Encounter Details Date Type Department Care Team (Late st Contact Info) Description 08/20/2013 Documentation [facility] [place] [address] [place] [address] Family Medicine, Physician [address], [place] [phone] Social History Tobacco Use Types Packs/Day Years [...] on filedocumented in this encounter Care Teams Affiliate Marketing Manager Relationship Specialty Start Date End Date Elva Reilly MD [address] [place] [address] [place] [address] PCP - General 01/20/17 08/24/22 documented as of this encounter
--- OUTSIDE RECORDS SUMMARY | 2025-05-15 10:08 | XMS_ITS | Encounter Summary ---
Author Organization [facility] Address [address] [place] [address] Phone Care Team Providers Care Cartridge Gauger Name Role Phone Elva Reilly MD Primary Care Provider [phone] Encounter Details Date Type Department Care Team (Late st Contact Info) Description 06/14/2013 Documentation [facility] [place] [address] [place] [address] Family Medicine, Physician [address] [place], [place] [phone] Social History Tobacco Use Types Packs/Day Years [...] on filedocumented in this encounter Care Teams Cartridge Gauger Relationship Specialty Start Date End Date Elva Reilly MD [address] [place] [address] [place] [address] PCP - General 01/20/17 08/24/22 documented as of this encounter
--- OUTSIDE RECORDS SUMMARY | 2025-05-15 10:08 | XMS_ITS | Encounter Summary ---
Author Organization [facility] Address [address] [place] [address] Phone Care Team Providers Care Retort Operator Name Role Phone Elva Reilly MD Primary Care Provider [phone] Encounter Details Date Type Department Care Team (Late st Contact Info) Description 03/22/2010 [place] [facility] [place] [address] [place] [address] Family Medicine, Physician [address] [place], [place] [phone] Social History Tobacco Use Types Packs/Day Years [...] on filedocumented in this encounter Care Teams Retort Operator Relationship Specialty Start Date End Date Elva Reilly MD [address] [place] [address] [place] [address] PCP - General 01/20/17 08/24/22 documented as of this encounter
--- OUTSIDE RECORDS SUMMARY | 2025-05-15 10:08 | XMS_ITS | Encounter Summary ---
Author Organization [facility] Address [address] [place] [address] Phone Care Team Providers Care Boot Trimmer Name Role Phone Elva Reilly MD Primary Care Provider [phone] Encounter Details Date Type Department Care Team (Late st Contact Info) Description 08/21/2013 Documentation [facility] [place] [address] [place] [address] Family Medicine, Physician [address], [place] [phone] Social History Tobacco Use Types Packs/Day Years [...] on filedocumented in this encounter Care Teams Boot Trimmer Relationship Specialty Start Date End Date Elva Reilly MD [address] [place] [address] [place] [address] PCP - General 01/20/17 08/24/22 documented as of this encounter
--- OUTSIDE RECORDS SUMMARY | 2025-05-15 10:08 | XMS_ITS | Encounter Summary ---
Author Organization [facility] Address [address] [place] [address] Phone Care Team Providers Care Director Of Estate Name Role Phone Elva Reilly MD Primary Care Provider [phone] Encounter Details Date Type Department Care Team (Late st Contact Info) Description 09/18/2009 Documentation [facility] [place] [address] [place] [address] Family Medicine, Physician [address] [place], [place] [phone] Social History Tobacco Use Types Packs/Day Years [...] on filedocumented in this encounter Care Teams Director Of Estate Relationship Specialty Start Date End Date Elva Reilly MD [address] [place] [address] [place] [address] PCP - General 01/20/17 08/24/22 documented as of this encounter
--- OUTSIDE RECORDS SUMMARY | 2025-05-15 10:08 | XMS_ITS | Clinical Summary ---
Author Organization [facility] Address [address] [place] [address] Phone Care Team Providers Care Senior Graphic Designer Name Role Phone Unavailable Primary Care Provider [...] Diabetes mellitus, No family history of Sudden /[place] under 55, Family history of Asthma, No [...] Additional history exists COVID-19 Vaccine ( - 2024- season) 2025 Hepatitis B Vaccines Completed 10/09/1992, [...] complete this topic Procedures * Due to [place] [employer] law, this organization might not be sharing sensitive test results. Procedure Name Priority Date/Time Associated Diagnosis Comments CHLAMYDIA AND GONORRHEA, AMPLIFIED Routine 08/01/2013 1:50 PM EST from Last 3 Months or Most Recently Relevant to Health Maintenance Results * Due to [facility] law, this organization might not be sharing sensitive test results. * Chlamydia and Gonorrhoea, Amplified (08/01/2013 1:50 PM EST) URINE CHLAMYDIA AMP PROBE NEGATIVE [facility] Comment: NO CHLAMYDIA TRACHOMATIS RNA DETECTED IN THIS PATIENT'S SAMPLE. (REFERENCE RANGE/NORMAL VALUE: NOT DETECTED) URINE GC AMP PROBE NEGATIVE [facility] Comment: NO NEISSERIA GONORRHOEAE RNA DETECTED IN THIS PATIENT'S SAMPLE. (REFERENCE RANGE/NORMAL VALUE: NOT DETECTED) NOTE: THIS TEST USES SUBMARINE CABLE EQUIPMENT TECHNICIAN-MEDIATED AMPLIFICATION METHOD TO DETECT rRNA FROM [...] OF INFECTION. Testing performed or reported by [facility], a Service of [facility], [address] [place] [address] yTrese Gaona, Social Services Director 08/01/2013 1:50 PM EST Narrative [facility] - 08/01/2013 1:50 PM EST URINE CHLAMYDIA GC AMP PROBE us Elva Reilly MD LAB MICROBIOLOGY - GENERAL ORDER SARY Final Result [facility] [address] [place] [address], [place] from Last 3 Months or Most Recently Relevant to Health Maintenance
--- OUTSIDE RECORDS SUMMARY | 2025-05-15 10:08 | XMS_ITS | Encounter Summary ---
Author Organization [facility] Address [address] [place] [address] Phone Care Team Providers Care Director Of Head Start Name Role Phone Elva Reilly MD Primary Care Provider [phone] Encounter Details Date Type Department Care Team (Late st Contact Info) Description 01/26/2017 Conversion Encounter [facility] [place] [address] [place] [address] Social History Tobacco Use Types Packs/Day Years [...] in this encounter Care Teams Director Of Head Start Relationship Specialty Start Date End Date Elva Reilly MD [address] [place] [address] PCP - General 01/20/17 08/24/22 documented as of this encounter
== END 2025-05-15 09:14 | disposition home or self-care (01) ==
LOC: HO.US 09:13
PROVIDERS: PCP Physician Assistant; Visit Provider Physician Assistant
DX: R74.8 Abnormal levels of other serum enzymes (principal)
CPT/HCPCS: 76700

== ENCOUNTER → 2025-05-15 09:15 | Outpatient (BNV) | payer MEDICARE, MEDICAID, SELFPAY | PROVIDERS: PCP Physician Assistant; Visit Provider Radiology Diagnostic Radiology | DX: K76.0 Fatty (change of) liver, not elsewhere classified (principal) | CPT/HCPCS: 76700 ==